=== PATIENT | male | born 1970 | race Caucasian/White ===

== ENCOUNTER 2019-12-11 00:26 | Outpatient (CLI) | payer OTHER, SELFPAY ==
--- NOTE | 2019-12-11 08:28 | DI.MRI_ITS ---
EXAM: MR UPPER JOINT RT WO CLINICAL HISTORY: RT SHOULDER PAIN,INCREASING WITH LIMITATION OF MOVEMENT [id number]. TECHNIQUE: Multiplanar multisequence MRI was performed. COMPARISON: None. FINDINGS: BONES: There is no fracture or contusion pattern. JOINTS: There are degenerative changes seen at the acromioclavicular joint with hypertrophy of the benji int noted. The glenohumeral joint is normal. TENDONS: Supraspinatus: Hyperintense signal seen in the supraspinatus tendon at its insertion site onto the gr eater tuberosity consistent with a partial tear. Infraspinatus: Unremarkable. Subscapularis: There is mild hyperintense signal seen in the subscapularis tendon suspicious for tend inosis. [place]: Unremarkable. Biceps and [place]: Unremarkable. MUSCLES: Unremarkable. GLENOID LABRUM: There is hyperintense signal associated with the posterior and posterior superior lab rum suspicious for tear or degeneration. SOFT TISSUES: Unremarkable. LIGAMENTS: Unremarkable. OTHER: Mild increased signal is seen within the subacromial subdeltoid bursa which may represent a bu rsitis. IMPRESSION: 1. Partial tear of the supraspinatus tendon. 2. Subscapularis tendinosis. 3. Findings suspicious for a labral tear. 4. Degenerative changes of the acromioclavicular joint. DATA REPOSITORY:
== END 2019-12-11 00:46 ==
PROVIDERS: PCP Family Medicine; Visit Provider Nurse Practitioner Primary Care
DX: M25.511 Pain in right shoulder (principal); M75.101 Unspecified rotator cuff tear or rupture of right shoulder, not specified as traumatic; M75.81 Other shoulder lesions, right shoulder; M19.011 Primary osteoarthritis, right shoulder
CPT/HCPCS: 73221

== ENCOUNTER 2024-09-15 19:55 | Emergency (ER) | payer BC, SELFPAY ==
[2024-09-15 19:58] VITALS: BP 166/96; PULSE 60; RESP 16; TEMP 36.8; O2SAT 96
--- NOTE | 2024-09-15 20:05 | W.ED.GENAD ---
Discharge Plan Disposition Patient Disposition: Home Condition: Stable Discharge Details Clinical Impression: Dog bite of left forearm Primary Care Provider: Joan Quintana ED Provider: Abdiel Oswald Home Meds and New Rx's Prescriptions: New amoxicillin-pot clavulanate 875-125 mg tablet 1 tab PO BID 10 Days Qty: 20 0RF Continued atorvastatin 20 mg tablet 20 mg PO DAILY Discharge Instructions Instructions: Amoxicillin and Clavulanate, Animal Bites ED Additional Instructions: You were seen in the emergency department for dog bite of bilateral forearms much worse on the left forearm. We started you on IV antibiotics as well as p.o. Augmentin this evening, berry picker the rest of your prescription tomorrow morning at [place] [facility], keep the area clean and dry with topical antibiotic ointments, watch for signs of infection like red streaking up the arm, increasing pain and swelling and redness, fever, return to the emergency department for any of the symptoms Referrals: Joan Quintana [Primary Care Provider] - Discharge Data Discharge Date/Time-TO BE ENTERED AT DEPARTURE: 09/15/24 20:54 HPI General Date/Time Provider Initiated Documentation: 09/15/24 20:04. HPI Narrative: 53 year-old male presents to ED today by POV/ambulating with his with a chief complaint of dog bites to bilateral forearms, left much moreso than right with onset just prior to arrival- it was the patients dog who is UTD on all shots. Quality described as painful, swelling to L forearm puncture wounds, no radiation to broken tooth of dog, retained foreign body, fever, active bleeding. Severity is described as moderate. Palliating factors include bleeding controlled with pressure/bandages. Provoking factors include nothing specific. Events leading up to the incident/Associated Symptoms: Patients Tdap is UTD. Patient not anticoagulated. Related Data Home Medications ?Medication ?Instructions ?Recorded ?Confirmed amoxicillin 875 mg-potassium 1 tab PO BID dog bite 10 days #20 09/15/24 clavulanate 125 mg tablet tabs atorvastatin 20 mg tablet 20 mg PO DAILY 09/15/24 09/15/24 Previous Rx's ?Medication ?Instructions ?Recorded amoxicillin 875 mg-potassium 1 tab PO BID dog bite 10 days #20 09/15/24 clavulanate 125 mg tablet tabs Allergies Allergy/AdvReac Type Severity Reaction Status Date / Time Oonxswe-DDY-LdY Reductase Allergy Mild Unknown Verified 09/15/24 20:02 Inhibitor (Xmvvfpn-Ylq-Ihc Reductase Inhibitor) multivitamin Allergy Mild Unknown Uncoded 09/15/24 20:02 General Stated Complaint: AnimalBite ROBBY: 4 Review of Systems All systems reviewed & are unremarkable except as noted in HPI and below Exam Narrative Exam Narrative: GENERAL APPEARANCE: Well-nourished, non-toxic, awake and alert, atraumatic, no acute distress. SKIN: Warm, pink, dry, intact, without rashes/lesions/ulcerations. HEAD: Normocephalic, atraumatic, normal hair distribution for gender/age. EYES: Normal conjunctiva, no exudates on lids/lashes. ENT: Nares patent, no circumoral cyanosis, no facial swelling NECK: Supple, trachea midline, painless cervical ROM. LUNGS/CHEST: Lungs CTA bilaterally, non-labored respirations, normal A/P diameter, symmetrical expansion, no chest wall deformity HEART (CV/PV): Regular rate and rhythm without murmur, no peripheral edema, no JVD. ABDOMEN: Soft, non-distended, no guarding. MSK: Normal ROM, no swelling/deformity to bilateral UEs or LEs, moving all extremities without weakness, no cyanosis, spine midline without tenderness, normal curvature. NEURO: Mental Status AAOx4 - alert to person, place, time, events No facial droop, no forehead involvement. Motor: No focal weakness - strength 5/5 in bilateral UEs and LEs, proximal and distal, symmetric. Sensory: sensation intact to light touch globally. Gait normal: patient ambulated without ataxia into ED room. PSYCH: euthymic, cooperative, pleasant, appropriate speech Course Vital Signs Vital signs: Vital Signs Temperature 36.8 C 09/15/24 19:58 Pulse 60 09/15/24 19:58 Respiratory Rate 16 09/15/24 19:58 Blood Pressure 166/96 H 09/15/24 19:58 Pulse Oximetry 96 09/15/24 19:58 Temperature 36.8 C 09/15/24 19:58 Pulse 60 09/15/24 19:58 Respiratory Rate 16 09/15/24 19:58 Respiratory Effort Normal 09/15/24 20:02 Blood Pressure 166/96 H 09/15/24 19:58 Pulse Oximetry 96 09/15/24 19:58 Pain Level 6 09/15/24 19:58 Medical Decision Making This dictation utilizes tpdhk-xb-imlu dictation software and may contain unedited grammatical errors. 53 year-old male presents to ED today by POV/ambulating with his with a chief complaint of dog bites to bilateral forearms, left much moreso than right with onset just prior to arrival- it was the patients dog who is UTD on all shots. Quality described as painful, swelling to L forearm puncture wounds, no radiation to broken tooth of dog, retained foreign body, fever, active bleeding. Severity is described as moderate. Palliating factors include bleeding controlled with pressure/bandages. Provoking factors include nothing specific. Events leading up to the incident/Associated Symptoms: Patients Tdap is UTD. Patients' medical history: noncontributory. Family and social history: noncontributory. Pertinent exam findings / vital signs include multiple puncture wounds to the left forearm, very superficial abrasions to right forearm, mild swelling and redness without lymphadenitis. Differential / pathologies of concern include cellulitis, animal bite. Diagnostic studies of: -None. Interventions of: -Aggressive washout, loaded with IV Unasyn, started on p.o. Augmentin. ED Course/Assessment/Plan: 53-year-old male presents after being bitten by his own dog, his dog is up-to-date on shots he has some puncture wounds to the left forearm, these were aggressively cleaned out with dilute Betadine and syringe irrigation, he was loaded with IV Unasyn and started on p.o. Augmentin with strict return criteria for worsening signs of infection. Patient's Tdap is up-to-date. Findings not consistent with large puncture wounds. Disposition of dog bite of left forearm. Patient verbalized understanding of the plan and return to ED criteria and engaged in shared decision making. Medical Records Medical records reviewed: Yes I reviewed the patient's medical records. Quality:SDOH Health Related Social Needs: No Data to Display PFSH All Active Problems (Updated 09/15/24 @ 20:34 by RICK Stokes) Dog bite of left forearm (Acute) Lumbosacral radiculopathy (Acute) Calf pain (Acute) Epicondylitis, lateral, left (Acute) We will see the patient back for follow-up treatment of common extensor tendon inflammation. He may need 1/3 injection as he did on the opposite side. Medical History (Updated 09/15/24 @ 20:34 by RICK Stokes) Hyperlipidemia Surgical History S/P left knee arthroscopy Family History Mother Hypertension Social History Smoking/Tobacco Use Status: Never Smoking risk assessment performed?: Yes Alcohol Intake: current Drug use: Never Household members: family current occupation: [employer]; [employer]
[2024-09-15] MEDS: Lidocaine/Epinephri/Tetracaine Topical Gel 3 ML (20:11)
[2024-09-15] MEDS: AMPICILLIN/SULBACTAM 3 GM in Normal Saline 100 ML IVPB (20:31)
[2024-09-15] MEDS: Amoxicillin 875/Clav. 125 TAB PO (20:32)
--- NOTE | 2024-09-15 21:00 | NUR.NOTE ---
Animal bite reported to [facility] Officer Boyd Wallis, animal bite form faxed to his office at [phone].Nursing Note:
--- OUTSIDE RECORDS SUMMARY | 2024-09-15 21:03 | XMS_ITS | Encounter Summary ---
Author Name [facility] [place] [facility] [place] Address [address] [place] [address] Care Team Providers Care Subassembly Assembler Name Role Phone ANG ARMANDO Primary Care Provider Unavail le Insurance Providers: All historical and current Section Date Range: From patient's date of to the date document was created. This section includes the names of all active insurance providers for the patient. Insurance Provider Type of Coverage Plan Name Start of Policy Coverage End of Policy Coverage Group Number Member ID Insurance Provider's Telephone Number Policy Ellsworth's Name Patient's Relationship to Policy Ellsworth ANTHEM [employer] [place] RET UNDER Nov 03, 2020 [id number] MELLOLISA PATIENT ANTHEM [employer] [place] ACTIV E SELE[place] TCAR Oct 03, 2018 [id number] SARKARLISA PATIENT [employer] [place] S[place] RET UNDER 65 [place] Nov 03, 2020 [id number] MELLOLISA CASH PATIENT [employer] [place] S[place] ACTIV E [place] TCAR Oct 03, 2018 [id number] LISA SARKAR PATIENT BCBS [facility] POINT OF SERVICE SOV RET UNDER 65 DESTIN[place] Oct 03, 2018 [id number] LISA SARKAR PATIENT [employer] ([id number]) PRESCRIPT ION [facility] NT Oct 03, 2018 [id number] LISA SARKAR PATIENT Selected Encounter This section includes the information on record at [place] for the Encounter. Date/Time Encounter Type Encounter Description Reason Provider Source Nov 04, 2023 11:00 AM MANUAL THERAPY 1/> [facility] ICD-10-CM M25.511 Pain in right shoulder MICUCCI,RINKU IHE Encounter Template Text not used by VA Assessments - Encounter Diagnoses This section includes the primary and secondary diagnoses documented for the Encounter. Date/Time Primary/Secondary Diagnosis Diagnosis Name Provider Source Nov 15, 2023 07:32 AM PRIMARY Pain in right shoulder MICUCCI,RINKU [facility] Plan of Treatment: Future Appointments (+ 6 months) and Future Tests (+/- 45 days) The Plan of Treatment section includes future care activities for the patient from all [place] treatmentfacilities. This section includes future appointments and future orders which are active, pending or scheduled. Future Appointments This section includes appointments that were scheduled to occur 6 months from the date of the Encounter, up to a maximum of 20 appointments. The data comes from all [place] treatment facilities. Appointment Date/Time Appointment Type Appointme nt Facility Name Nov 17, 2023 02:00 PM AM[facility] [place] [facility] Nov 22, 2023 04:00 PM [place] [facility] February 01, 2024 10:30 AM [place] [facility] Mar 05, 2024 01:30 PM AMBULATORY - MEDICINE [facility] Mar 09, 2024 05:30 PM AM[place]ORY - NONE [place] [facility] Apr 11, 2024 08:30 AM [place] [facility] Apr 18, 2024 08:30 AM [facility] [place] [facility] Apr 26, 2024 09:30 AM AMBULATORY - NONE [facility] Apr 26, 2024 10:00 AM AMBULATORY - NONE [facility] May 03, 2024 08:30 AM AMBULATORY - REHAB [facility] Social History: Smoking Status (Most current) and Tobacco Use (All prior to encounter date) This section includes the most current, and the historical, smoking and tobacco- related health factors from the [place] facility where the Encounter took place. Current Smoking Status This section includes the most current smoking, or tobacco-related health factor, from the [place] facility where the Encounter took place. Date/Time Current Smoking Status Comment Facil ity Apr 21, 2023 11:00 AM VA-TOBACCO NEVER USED [facility] Tobacco Use History This section includes a history of the smoking, or tobacco-related health factors, that were collected on or before the date of the Encounter. The data comes from the [place] facility where the Encounter took place. Date/Time Smoking Status/Tobacco Use Comment F acility Aug 05, 2021 09:04 AM VA-TOBACCO FORMER USER [facility] Aug 05, 2021 09:04 AM VA-TOBACCO QUIT 5 TO < 15 YRS [facility] Jul 03, 2020 08:45 AM VA-TOBACCO FORMER USER [facility] Jul 03, 2020 08:45 AM VA-TOBACCO QUIT 5 TO < 15 YRS [facility] Dec 20, 2005 03:58 PM LIFETIME NON-TOBACCO USER [facility] Encounter Notes: All associated encounter notes This section contains the clinical notes associated to the Encounter. Date/Time Encounter Note(s) Provider Source Nov 04, 2023 10:57 AM PHYSICAL THERAPY N OTE: LOCAL TITLE: Physical Therapy Note STANDARD TITLE: PHYSICAL THERAPY NOTE DATE OF NOTE: NOV 04, 2023@10:57 ENTRY DATE: NOV 04, 2023@10:57:13 AUTHOR: RINKU LANE EXP COSIGNER: URGENCY: STATUS: COMPLETED Diagnosis: LBP, bilat hip pain worsening. Referred by: Eli BUNCH Referred for: Evaluate and treat Date of Onset: Chronic Start of Physical Therapy plan of care: 07/10/21 Visit # 26 S. R shoulder is aggravated at the moment and occasional sharp pain R low back. O. Manual Therapy MFR through range in IR/ ER UE pull bilaterally; STM at tight areas and noting these to do the next tx: IASTM Graston technique R shoulder Sweep, fan, strum, GT 3, 4 (c/o R shoulder sore post tx.) Also seated: R SI & lower lumbar IASTM Graston technique GT 3, 4, 5. Sweep, [place], Framing SI. (c/o decreased SI area pain post tx). Shock therapy RPW Ro-40 head to (on stretch) tight areas in biceps, pec, delt x 2000 pulses 12 Hz, 1-1.5 bars. Assessment/Prognosis/Rehabilit ation Potential: 51 y/o know to this clinic returns with progressing back pain (T-L) and L sciatica. Per PCP for trial [employer], but we also schedule for plan as above this winter. Mod- good rehab potential. ? Nerve vs ST pain: possibly Intercostobrachial, lateral cutaneous branches of Intercostal N, lateral or medial pectoral nerve. Plan: RC strengthening program per Ortho. Short Term Goals: 4-6 weeks 1. [place] to be I with shoulder strengthening program. Area Loss Prevention Manager Goals: 8-16 weeks 1. [place] to have strength WFL. Total Time: 55 Manual Therapy 47103 55 Thera Activity 59375 [place] [address] Hot/Cold Pack 08681 Estim 84680 Ultrasound 96173 Ortho fit Iontophoresis Subs eval SHock therapy 15 The above results and recommendations were explained to the , who verbally acknowledged an understanding thereof. The plan of care, the expected benefits, and known risks associated with the recommended treatment, alternative treatments, or no treatment with the associated risks has been discussed with the (or surrogate). The (or surrogate) had an opportunity to ask questions which were answered to the 's (or surrogate's) satisfaction. The patient (or surrogate) agreed to proceed with the recommended plan of care. Please do not hesitate to call contact me with questions/concerns- Thank marcia urias/ RINKU LANE Physical Therapist, licenced in [place] Signed: 11/04/2023 12:55 [facility]INKU [facility]
--- OUTSIDE RECORDS SUMMARY | 2024-09-15 21:03 | XMS_ITS | Encounter Summary ---
Author Name [facility] [place] [facility] [place] [facility] [place] Address [address] [place] [address] Care Team Providers Care Publication Manager Name Role Phone ANG ARMANDO Primary Care [...] Relationship to Policy Ellsworth ANTHEM [employer] [place] S[place] RET UNDER Nov 03, 2020 [id number] MELLOLISA SHAILESH PATIENT ANTHEM [employer] [place] SOV ACTIV E SELEC TCAR Oct 03, 2018 [id number] SARKARLISA SHAILESH PATIENT BCBS OF [place] OF [place] SOV RET UNDER 65 DESTIN[place] Nov 03, 2020 [id number] 00 MELLOLISA SHAILESH PATIENT [employer] [place] OF [place] SOV ACTIV E SELEC TCAR Oct 03, 2018 [id number] LISA SARKAR PATIENT [employer] [place]INT OF SERV[place] SOV RET UNDER 65 [place] Oct 03, 2018 [id number] LISA SARKAR PATIENT [employer] ([id number]) PRESCRIPT ION [facility] NT Oct 03, 2018 [id number] [phone] LISA SARKAR PATIENT Selected Encounter This section includes the information on record at [place] for the Encounter. Date/Time Encounter Type Encounter Description Reason Provider Source Nov 17, 2023 02:00 PM UNLISTED THERAPEUTIC [facility]X PHYSICAL THERAPY ICD-10-CM M25.512 Pain in left shoulder MICUCCI,RINKU IHE Encounter Template Text not used by VA Assessments - Encounter Diagnoses This section includes the primary and secondary diagnoses documented for the Encounter. Date/Time Primary/Secondary Diagnosis Diagnosis Name Provider Source Nov 28, 2023 12:36 PM PRIMARY Pain in left shoulder MICUCCI,[facility] Nov 28, 2023 12:36 PM SECONDARY Pain in right shoulder [facility]CCI,[facility] Plan of Treatment: Future Appointments (+ 6 months) and Future Tests (+/- 45 days) The Plan of Treatment section includes future care activities for the patient from all [place] treatmentfacilities. This section includes future appointments and future orders which are active, pending or scheduled. Future Appointments This section includes appointments that were scheduled to occur 6 months from the date of the Encounter, up to a maximum of 20 appointments. The data comes from all [place] treatment facilities. Appointment Date/Time Appointment Type Appointme nt Facility Name Nov 22, 2023 04:00 PM AM[place] [place] [facility] February 01, 2024 10:30 AM [facility] [place] [facility] Mar 05, 2024 01:30 PM AMBULATORY - MEDICINE [facility] Mar 09, 2024 05:30 PM [facility] - NONE [place] [facility] Apr 11, 2024 08:30 AM [place] [facility] Apr 18, 2024 08:30 AM [facility] [place] [facility] Apr 26, 2024 09:30 AM [facility]ORY - NONE [place] [facility] Apr 26, 2024 10:00 AM AMBULATORY - NONE [facility] May 03, 2024 08:30 AM AMBULATORY - REHAB MEDICIN E [facility] [facility] May 15, 2024 10:10 AM AMBULATORY - NONE [facility] Social History: Smoking Status (Most current) and Tobacco Use (All prior to encounter date) This section includes the most current, and the historical, smoking and tobacco- related health factors from the [place] facility where the Encounter took place. Current Smoking Status This section includes the most current smoking, or tobacco-related health factor, from the [place] facility where the Encounter took place. Date/Time Current Smoking Status Comment Facil ity Apr 21, 2023 11:00 AM VA-TOBACCO NEVER USED [facility] Tobacco Use History This section includes a history of the smoking, or tobacco-related health factors, that were collected on or before the date of the Encounter. The data comes from the [place] facility where the Encounter took place. Date/Time Smoking Status/Tobacco Use Comment F acility Aug 05, 2021 09:04 AM VA-TOBACCO FORMER USER [facility] Aug 05, 2021 09:04 AM VA-TOBACCO QUIT 5 TO < [address] [facility] Jul 03, 2020 08:45 AM VA-TOBACCO FORMER USER [facility] Jul 03, 2020 08:45 AM VA-TOBACCO QUIT 5 TO < [address] [facility] Dec 20, 2005 03:58 PM LIFETIME NON-TOBACCO USER [facility] Encounter Notes: All associated encounter notes This section contains the clinical notes associated to the Encounter. Date/Time Encounter Note(s) Provider Source Nov 17, 2023 01:58 PM PHYSICAL THERAPY N OTE: LOCAL TITLE: Physical Therapy Note STANDARD TITLE: PHYSICAL THERAPY NOTE DATE OF NOTE: NOV 17, 2023@13:58 ENTRY DATE: NOV 17, 2023@13:58:07 AUTHOR: RINKU LANE COSIGNER: URGENCY: STATUS: COMPLETED Diagnosis: LBP, bilat hip pain worsening. Referred by: Eil BUNCH Referred for: Evaluate and treat Date of Onset: Chronic Start of Physical Therapy plan of care: 07/10/21 Visit # 27 S. The work you did on the shoulder really helped- they are both about the same now: can you do it for both shoulders? I've gotten back into strengthening with the bands in particular. O. NM re- ed. NUSTEP L5 Stretches in TRUE stretch pre and post MT. Encouraged to work on H- abd in particular during the day (@90deg) while working/ warm. Manual Therapy IASTM Graston technique R & L shoulders Sweep, fan, strum, GT 3, 4 Shock therapy RPW Ro-40 head to (on stretch) tight areas in biceps, pec, delt x 2000 pulses 12 Hz, 1.5 bars bilateral shoulders. Assessment/Prognosis/Rehabilit ation Potential: 51 y/o know to [...] Ortho. Short Term Goals: 4-6 weeks 1. [place] to be I with shoulder strengthening program. [employer] Milling Processor Goals: 8-16 weeks 1. to have strength WFL. Total Time: 60 Manual Therapy 84202 35 Thera Activity 13557 [place] [address] 15 Hot/Cold Pack 29937 Estim 17189 Ultrasound 57846 Ortho fit Iontophoresis Subs eval SHock therapy 10 The above results and recommendations were explained [...] urias/ RINKU LANE Physical Therapist, licenced in [place] Signed: 11/17/2023 17:[address] [facility]
--- OUTSIDE RECORDS SUMMARY | 2024-09-15 21:03 | XMS_ITS | Encounter Summary ---
Author Name [facility] [place] [facility] [place] Address [address] [place] [address] Care Team Providers Care Desktop Analyst Name Role Phone ANG ARMANDO Primary Care Provider Unavailab le Insurance Providers: All historical and current [...] Relationship to Policy [place] ANTHEM [employer] POINT OF SERVICE SOV RET UNDER Nov 03, 2020 [id number] MELLOLISA SHAILESH PATIENT ANTHEM [place]INT [place] SERVICE SOV ACTIV E SELEC TCAR Oct 03, 2018 [id number] [phone] LISA SARKAR PATIENT [place] POINT OF SERVICE SOV RET UNDER 65 DESTINY Nov 03, 2020 [id number] LISA SARKAR PATIENT [place] POINT OF SERVICE SOV ACTIV E SELEC TCAR Oct 03, 2018 [id number] LISA SARKAR PATIENT [place] POINT OF [place]ICE SOV RET UNDER 65 DESTINY Oct 03, 2018 [id number] LISA SARKAR PATIENT [employer] ([id number]) PRESCRIPT ION [facility] NT Oct 03, 2018 [id number] LISA SARKAR PATIENT Selected Encounter This section includes the information on record at [place] for the Encounter. Date/Time Encounter Type Encounter Description Reason Pro vider Source Nov 16, 2023 02:39 PM Outpatient Encounter ADMIN PAT ACTIVTIES (MASNONCT) IHE Encounter Template Text not used by VA Plan of Treatment: Future Appointments (+ 6 months) and Future Tests (+/- 45 days) The Plan of Treatment section includes future care activities for the patient from all VA treatmentfacilities. This section includes future appointments and future orders which are active, pending or scheduled. Future Appointments This section includes appointments that were scheduled to occur 6 months from the date of the Encounter, up to a maximum of 20 appointments. The data comes from all [place] treatment facilities. Appointment Date/Time Appointment Type Appointme nt Facility Name Nov 17, 2023 02:00 PM AMBULATORY - [place] [facility] Nov 22, 2023 04:00 PM AMBULATORY - [place]IC[place] [facility] February 01, 2024 10:30 AM AMBULATORY - [place] [facility] Mar 05, 2024 01:30 PM AMBULATORY - MEDICINE [facility] Mar 09, 2024 05:30 PM AM[place]ULATORY - NONE [place] [facility] Apr 11, 2024 08:30 AM AMBULATORY [place] [facility] Apr 18, 2024 08:30 AM AMBULATORY - [place] [facility] Apr 26, 2024 09:30 AM AMBULATORY - NONE [facility] Apr 26, 2024 10:00 AM AMBULATORY - NONE [facility] May 03, 2024 08:30 AM AMBULATORY [place] [facility] May 15, 2024 10:10 AM AM[place]ULATORY - NONE [place] [facility] Encounter Notes: All associated encounter notes This section contains the clinical notes associated to the Encounter. Date/Time Encounter Note(s) Provider Source Nov 18, 2023 04:25 PM ADDENDUM: LOCAL TITLE: Addendum STANDARD TITLE: ADDENDUM DATE OF NOTE: NOV 18, 2023@16:25:07 ENTRY DATE: NOV 18, 2023@16:25:09 AUTHOR: FRANK HARDEN EXP COSIGNER: URGENCY: STATUS: COMPLETED Pt would like to be scheduled at [facility] for his eye exam. [facility] wait time was about the same so he would rather just [facility] the [facility]. /fredy/ FRANK HARDEN Signed: 11/18/2023 16:25 Receipt Acknowledged By: 11/23/2023 11:40 /fredy/ STEPHEN MILLER Registered Nurse 11/22/2023 09:57 /es/ GEN FARLEY MSA --- Original Document --- 11/16/23 Has Admin Note: Reason for call Clinic Name:Eye - [place] would like to go to for his eye-care due to the long wait times. [place] like to go to [facility] located in [facility]. [place]'s best form of contact is [phone] and is OK with a detailed voice message on this number if unable to reach him /fredy/ KEELY ÁLVAREZ MSA Signed: 11/16/2023 14:40 Receipt Acknowledged By: 11/17/2023 16:02 /fredy/ STEPHEN MILLER Registered Nurse 11/16/2023 15:05 /fredy/ KAVITHA BRICNEO OD CHIEF, OPTOMETRY 11/17/2023 ADDENDUM STATUS: COMPLETED [facility] would like to go to for his eye-care due to the long wait times. [place] would like to go to [facility] located in [facility]. please review wait time for this cc provider/offer [facility] or possible other locations. /dafne MILLER Registered Nurse Signed: 11/17/2023 16:03 Receipt Acknowledged By: 11/18/2023 14:04 /dafne HARDEN 11/18/2023 ADDENDUM STATUS: COMPLETED [facility] in [facility] is booking 10 months out. LM and mailed letter to to discuss care options. /dafne HARDEN Signed: 11/18/2023 14:05 11/22/2023 ADDENDUM STATUS: COMPLETED Left a vm for patient to call back and schedule an exam. Sent contact letter. /dafne FARLEY MSA Signed: 11/22/2023 09:58 FRANK HARDEN [facility] Nov 17, 2023 04:03 PM ADDENDUM: LOCAL TITLE: Addendum STANDARD TITLE: ADDENDUM DATE OF NOTE: NOV 17, 2023@16:03 ENTRY DATE: NOV 17, 2023@16:03:01 AUTHOR: STEPHEN MILLER EXP COSIGNER: URGENCY: STATUS: COMPLETED [facility]CI AMS[facility] [place] would like to go to for his eye-care due to the long wait times. [place] would like to go to [facility] located in [facility]. please review wait time for this cc provider/offer [facility] or possible other locations. /dafne MILLER Registered Nurse Signed: 11/17/2023 16:03 Receipt Acknowledged By: 11/18/2023 14:04 /dafne HARDEN --- Original Document --- 11/16/23 Has Admin Note: Reason for call Clinic Name:Eye - CC would like to go to for his eye-care due to the long wait times. [place] would like to go to [facility] located in [facility]. 's best form of contact is [phone] and is OK with a detailed voice message on this number if unable to reach him /fredy/ KEELY ÁLVAREZ MSA Signed: 11/16/2023 14:40 Receipt Acknowledged By: 11/17/2023 16:02 /fredy/ STEPHEN MILLER Registered Nurse 11/16/2023 15:05 /fredy/ KAVITHA BRICENO, OD CHIEF, OPTOMETRY 11/18/2023 ADDENDUM STATUS: UNSIGNED You may not VIEW this UNSIGNED Addendum. STEPHEN MILLER [facility] Nov 16, 2023 02:39 PM ADMINISTRATIVE NOT E: LOCAL TITLE: Has Admin Note STANDARD TITLE: ADMINISTRATIVE NOTE DATE OF NOTE: NOV 16, 2023@14:39 ENTRY DATE: NOV 16, 2023@14:39:36 AUTHOR: KEELY ÁLVAREZ EXP COSIGNER: URGENCY: STATUS: COMPLETED Has Admin Note Has ADDENDA Reason for call Clinic Name:Eye - [facility] [place] would like to go to for his eye-care due to the long wait times. would like to go to [facility] located in [facility]. [place]'s best form of contact is [phone] and is OK with a detailed voice message on this number if unable to reach him /fredy/ KEELY ÁLVAREZ MSA Signed: 11/16/2023 14:40 Receipt Acknowledged By: 11/17/2023 16:02 /dafne MILLER Registered Nurse 11/16/2023 15:05 /fredy/ KAVITHA BRICENO, OD CHIEF, OPTOMETRY 11/17/2023 ADDENDUM STATUS: COMPLETED [facility] [place] would like to go to for his eye-care due to the long wait times. would like to go to [facility] located in [facility]. please review wait time for this cc provider/offer [facility] or possible other locations. /dafne MILLER Registered Nurse Signed: 11/17/2023 16:03 Receipt Acknowledged By: 11/18/2023 14:04 /dafne PRADOTEN 11/18/2023 ADDENDUM STATUS: COMPLETED [facility] in [facility] is booking 10 months out. LM and mailed letter to to discuss care options. /dafne HARDEN Signed: 11/18/2023 14:05 11/18/2023 ADDENDUM STATUS: COMPLETED Pt would like to be scheduled at [facility] for his eye exam. [place] wait time was about the same so he would [facility]. /dafne HARDEN Signed: 11/18/2023 16:25 Receipt Acknowledged By: * AWAITING SIGNATURE * STEPHEN MILLER 11/22/2023 09:57 /dafne FARLEY MSA 11/22/2023 ADDENDUM STATUS: COMPLETED Left a vm for patient to call back and schedule an exam. Sent contact letter. /dafne FARLEY MSA Signed: 11/22/2023 09:58 KEELY ÁLVAREZ [facility]
--- OUTSIDE RECORDS SUMMARY | 2024-09-15 21:03 | XMS_ITS | Encounter Summary ---
Author Name [facility] [place] Address [address] [place] [address] Care Team Providers Care Network Operations Lead Name Role Phone ANG ARMANDO Primary Care [...] Relationship to Policy [place] ANTHEM [employer] [place] POINT OF SERVICE SOV RET UNDER Nov 03, 2020 [id number] MELLOLISA SHAILESH PATIENT ANTHEM [employer]INT OF SERVICE SOV ACTIV E SELEC TCAR Oct 03, 2018 [id number] [phone] SARKARLISA SHAILESH PATIENT [employer] POINT OF SERVICE SOV RET UNDER 65 DESTINY Nov 03, 2020 [id number] MELLOLISA SHAILESH PATIENT [employer]INT OF SERVICE SOV ACTIV E SELEC TCAR Oct 03, 2018 [id number] LISA SARKAR PATIENT [place]INT OF SERV[place] SOV RET UNDER 65 DESTINY Oct 03, 2018 [id number] LISA SARKAR PATIENT [employer] ([id number]) PRESCRIPT ION [facility] NT Oct 03, 2018 [id number] [phone] LISA SARKAR PATIENT Selected Encounter This section includes the information on record at [place] for the Encounter. Date/Time Encounter Type Encounter Description Reason Provider Source Nov 22, 2023 04:00 PM NEUROMUSCULAR REEDUCATION PHYSICAL THERAPY ICD-10-CM M54.2 Cervicalgia MICUCCI,RINKU IHE Encounter Template Text not used by VA Assessments - Encounter Diagnoses This section includes the primary and secondary diagnoses documented for the Encounter. Date/Time Primary/Secondary Diagnosis Diagnosis Name Provider Source Nov 22, 2023 05:28 PM PRIMARY Cervicalgia [facility] Nov 22, 2023 05:28 PM SECONDARY Pain in left shoulder [facility]UCCI,[facility] Nov 22, 2023 05:28 PM SECONDARY Pain in right shoulder [facility]UCCI,[facility] Plan of Treatment: Future Appointments (+ 6 months) and Future Tests (+/- 45 days) The Plan of Treatment section includes future care activities for the patient from all [place] treatmentfacilities. This section includes future appointments and future orders which are active, pending or scheduled. Future Appointments This section includes appointments that were scheduled to occur 6 months from the date of the Encounter, up to a maximum of 20 appointments. The data comes from all [place] treatment facilities. Appointment Date/Time Appointment Type Appointme nt Facility Name February 01, 2024 10:30 AM [place] [facility] Mar 05, 2024 01:30 PM AMBULATORY - MEDICINE [facility] Mar 09, 2024 05:30 PM AM[place]ULATORY - NONE [place] [facility] Apr 11, 2024 08:30 AM [place] [facility] Apr 18, 2024 08:30 AM [place] [facility] Apr 26, 2024 09:30 AM AMBULATORY - NONE [facility] Apr 26, 2024 10:00 AM AMBULATORY - NONE [facility] May 03, 2024 08:30 AM AMBULATORY - REHAB MEDICIN E [facility] May 15, 2024 10:10 AM AMBULATORY - NONE [facility] LAM[facility] Social History: Smoking Status (Most current) and Tobacco Use (All prior to encounter date) This section includes the most current, and the historical, smoking and tobacco- related health factors from the [place] facility where the Encounter took place. Current Smoking Status This section includes the most current smoking, or tobacco-related health factor, from the [place] facility where the Encounter took place. Date/Time Current Smoking Status Comment Facil ity Apr 21, 2023 11:00 AM VA-TOBACCO NEVER USED [facility] Tobacco Use History This section includes a history of the smoking, or tobacco-related health factors, that were collected on or before the date of the Encounter. The data comes from the [place] facility where the Encounter took place. Date/Time Smoking Status/Tobacco Use Comment F acility Aug 05, 2021 09:04 AM VA-TOBACCO FORMER USER [facility] Aug 05, 2021 09:04 AM VA-TOBACCO QUIT 5 TO < 15 YRS [facility] Jul 03, 2020 08:45 AM VA-TOBACCO FORMER USER [facility] Jul 03, 2020 08:45 AM VA-TOBACCO QUIT 5 TO < 15 YRS [facility] Dec 20, 2005 03:58 PM LIFETIME NON-TOBACCO USER [facility] Encounter Notes: All associated encounter notes This section contains the clinical notes associated to the Encounter. Date/Time Encounter Note(s) Provider Source Nov 22, 2023 03:54 PM PHYSICAL THERAPY N OTE: LOCAL TITLE: Physical Therapy Note STANDARD TITLE: PHYSICAL THERAPY NOTE DATE OF NOTE: NOV 22, 2023@15:54 ENTRY DATE: NOV 22, 2023@15:54:47 AUTHOR: RINKU LANE COSIGNER: URGENCY: STATUS: COMPLETED Diagnosis: LBP, bilat hip pain worsening. Referred by: Eli BUNCH Referred for: Evaluate and treat Date of Onset: Chronic Start of Physical Therapy plan of care: 07/10/21 Visit # 28 S. Would be great to keep on working on my shoulders. The do wake me up at night, then I have a hard time getting up as I sleep only on my sides, but I think there are improvements. Definately feels better after PT. Need new heel cups and L wrist support- the R one really helps my elbow when I'm working. Worked overhead today- pretty sore. Vacation next week. Looking forwards to lying in the sun/ relaxing/ sleeping in! O. NM re- ed. NUSTEP L5 Stretches in TRUE stretch pre MT. Manual Therapy IASTM Graston technique R & L shoulders in 90 abd neutral, IR, ER and full flexion. Sweep, fan, strum, GT 3, 4 Noted improved texture R pec (upper) and R IR today. Seated C spine/ UT/ scalene in forwards lean and upright, rotated positions with GT 3,4 : sweep, fan, strum, jstroke. Noted congestion and loss of mobility R > L mid C spine. Also corrugated feel lateral UT bilaterally. (Shock therapy RPW Ro-40 head to (on stretch) tight areas in biceps, pec, delt x 2000 pulses 12 Hz, 1.5 bars bilateral shoulders.) Assessment/Prognosis/Rehabilit ation Potential: 51 y/o know to [...] Ortho. Short Term Goals: 4-6 weeks 1. to be I with shoulder strengthening program. [facility] Goals: 8-16 weeks 1. [place] to have strength WFL. Total Time: 7 Manual Therapy 15241 60 Thera Activity 29447 [place] [address] 10 Hot/Cold Pack 79255 Estim 53326 Ultrasound 27387 Ortho fit Iontophoresis Subs eval SHock therapy The above results and recommendations were explained [...] urias/ RINKU LANE Physical Therapist, licenced in [place] Signed: 11/22/2023 17:[address] [facility]
--- OUTSIDE RECORDS SUMMARY | 2024-09-15 21:03 | XMS_ITS | Encounter Summary ---
Author Name [facility] [place] Address [address] [place] [address] Care Team Providers Care 911 Dispatcher Name Role Phone ANG ARMANDO Primary Care [...] Relationship to Policy [place] ANTHEM [employer] [place] POINT OF SERVICE SOV RET UNDER Nov 03, 2020 [id number] MELLOLISA SHAILESH PATIENT ANTHEM [employer] [place] POINT OF SERVICE SOV ACTIV E SELEC TCAR Oct 03, 2018 [id number] [phone] LISA SARKAR PATIENT [employer] [place] POINT OF SERVICE SOV RET UNDER 65 DESTINY Nov 03, 2020 [id number] LISA SARKAR PATIENT [employer] POINT OF SERVICE SOV ACTIV E SELEC TCAR Oct 03, 2018 [id number] [phone] [id number] LISA SARKAR PATIENT [employer] POINT OF SERVICE SOV RET UNDER 65 DESTINY Oct 03, 2018 [id number] LISA SARKAR PATIENT [employer] ([id number]) PRESCRIPT ION [facility] NT Oct 03, 2018 Q54A [id number] LISA SARKAR PATIENT Selected Encounter This section includes the information on record at [place] for the Encounter. Date/Time Encounter Type Encounter Description Reason Provider Source Nov 04, 2023 12:04 PM OFF/OP EST JANUARY X REQ PHY/QHP PRIMARY CARE/MEDICINE ICD-10-CM Z23 Encounter for immunization GEOFFREY CLEANING ANN E Encounter Template Text not used by [place] Assessments - Encounter Diagnoses This section includes the primary and secondary diagnoses documented for the Encounter. Date/Time Primary/Secondary Diagnosis Diagnosis Name Provider Source Nov 15, 2023 07:34 AM PRIMARY Encounter for immunization GEOFFREY CLEANINGA [facility] Plan of Treatment: Future Appointments (+ [...] AMBULATORY [place] [facility] Nov 22, 2023 04:00 PM AM[place] [facility] February 01, 2024 10:30 AM [place] [facility] Mar 05, 2024 01:30 PM AMBULATORY - MEDICINE [facility] Mar 09, 2024 05:30 PM AM[place]ULATORY - NONE [place] [facility] Apr 11, 2024 08:30 AM [place] [facility] Apr 18, 2024 08:30 AM [place] [facility] Apr 26, 2024 09:30 AM AMBULATORY - NONE [facility] Apr 26, 2024 10:00 AM AMBULATORY - NONE [facility] May 03, 2024 08:30 AM AMBULATORY - REHAB [facility] Immunizations: All administered on the encounter date This section contains immunizations associated to the Encounter. Immunization Series Date Issued Reaction Comments INFLUENZA, INJECTABLE, QUADR IVALENT, PRESERVATIVE FREE Nov 04, 2023 Social History: Smoking Status (Most current) and [...] 21, 2023 11:00 AM VA-TOBACCO NEVER USED [facility] Tobacco Use History This section includes a history of the smoking, or tobacco-related health factors, that were collected on or before the date of the Encounter. The data comes from the [place] facility where the Encounter took place. Date/Time Smoking Status/Tobacco Use Comment F acility Aug 05, 2021 09:04 AM VA-TOBACCO FORMER USER [facility] Aug 05, 2021 09:04 AM VA-TOBACCO QUIT 5 TO < 15 YRS [facility] Jul 03, 2020 08:45 AM VA-TOBACCO FORMER USER [facility] Jul 03, 2020 08:45 AM VA-TOBACCO QUIT 5 TO < 15 YRS [facility] Dec 20, 2005 03:58 PM LIFETIME NON-TOBACCO USER [facility] Encounter Notes: All associated encounter notes This section contains the clinical notes associated to the Encounter. Date/Time Encounter Note(s) Provider Source Nov 04, 2023 12:04 PM NURSING IMMUNIZATI ON NOTE: LOCAL TITLE: IMMUNIZATION AND VACCINATION NOTE STANDARD TITLE: NURSING IMMUNIZATION NOTE DATE OF NOTE: NOV 04, 2023@12:04 ENTRY DATE: NOV 04, 2023@12:04:32 AUTHOR: MACKENZIE CLEANING COSIGNER: URGENCY: STATUS: COMPLETED *Immunizations No INFLUENZA Immunizations on file within 1Y. ADMINISTERED Immunization Series Date Facility Reaction Info COVID-19 (MODERNA), MRNA, LNP-S,* 1 12/26/2020 [facility] <[facility]> COVID-19 (MODERNA), MRNA, LNP-S,* 2 01/23/2021 [facility] <C> COVID-19 (MODERNA), MRNA, LNP-S,* 3 09/17/2021 [facility] <C> CONTRAINDICATED No data available REFUSED ======= No data available <C> See the Detailed Immunizations Health Summary Component[DIM] for Comments * Value is truncated; see the Detailed Immunizations Health Summary Component[DIM] for complete text No FLU,HI DOS Immunizations on file within 1Y. Recorded Pneumococcal Vaccinations Information: Reminder Term: VA-PNEUMOC PPSV23 IMMUNIZATION Immunization: PNEUMOCOCCAL POLYSACCHARIDE PPV23 09/19/2019@13:00 Reminder Term: VA-PNEUMOC PCV IMMUNIZATION (ALL CONJUGATE) Immunization: PNEUMOCOCCAL CONJUGATE PCV20, POLYSACCHARIDE [id number] CONJUGATE, ADJUVANT, PF 07/01/2022@15:44:26 No TD-ADULT Immunizations on file within 10Y. TDAP given on 04/21/23 Date of last Zoster Vaccine unknown Influenza Vaccine The patient was given the influenza VIS which lists the benefits and side effects of the vaccine and which reviews the risks of not receiving the flu vaccine. The VIS was reviewed with the patient and they were given an opportunity to ask questions. The patient was provided education on how to decrease the risk of influenza infection including social distancing and use of good hand hygiene. The patient denied any prior severe reaction to the flu vaccine or its components. The patient gave verbal consent to receive the vaccine. Influenza, Quadrivalent preservative free (Fluzone - syringe) Administered: INFLUENZA, INJECTABLE, QUADRIVALENT, PRESERVATIVE FREE Date Administered: Nov 04, 2023 12:04 Series: Complete Cinema Or Theatre Manager: SANOFI PASTEUR Lot: [id number] Exp Date: Apr 01, 2024 [facility]: [phone] Admin Route/Site: INTRAMUSCULAR/LEFT DELTOID Dosage: 0.5mL Vaccine Information Statement(s): INFLUENZA(FLU) VACC(INACTIVATED OR RECOMBINANT)VIS May 08, 2021 ([place]UNG[place]) Order By: Policy Administered By: Mackenzie Cleaning /fredy/ MACKENZIE CLEANING Registered Nurse Signed: 11/04/2023 12:05 MACKENZIE CLEANING [facility]
--- OUTSIDE RECORDS SUMMARY | 2024-09-15 21:03 | XMS_ITS | Encounter Summary ---
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 Name Role Phone ANG ARMANDO Primary Care [...] Relationship to Policy [place] [employer] [place] POINT OF SERVICE SOV RET UNDER Nov 03, 2020 [id number] MELLOLISA PATIENT ANTHEM [employer] [place]INT OF SERVICE SOV ACTIV E SELEC TCAR Oct 03, 2018 [id number] [phone] LISA VO PATIENT [employer] [place] POINT OF SERVICE SOV RET UNDER 65 DESTINY Nov 03, 2020 [id number] LISA VO PATIENT [employer]INT [place] SERV[place] SOV ACTIV E SELEC TCAR Oct 03, 2018 [id number] LISA VO PATIENT BS [facility] POINT OF SERVICE SOV RET UNDER 65 DESTINY Oct 03, 2018 [id number] [id number] LISA VO PATIENT [employer] ([id number]) PRESCRIPT ION [facility] NT Oct 03, 2018 [id number] LISA VO PATIENT Selected Encounter This section includes the information on record at [place] for the Encounter. Date/Time Encounter Type Encounter Description Reason Provider Source February 01, 2024 10:30 AM OFFICE O/P [place] 60 MIN ORTHO/JOINT SURG ICD-10-CM M25.511 Pain in right shoulder KERVIN MIRELES I[facility] Encounter Template Text not used by [facility] Assessments - Encounter Diagnoses This section includes the primary and secondary diagnoses documented for the Encounter. Date/Time Primary/Secondary Diagnosis Diagnosis Name Provider Source February 10, 2024 03:25 PM PRIMARY Pain in right shoulder KERVIN MIRELES L [facility] Plan of Treatment: Future Appointments (+ 6 months) and Future Tests (+/- 45 days) The Plan of Treatment section includes future care activities for the patient from all [place] treatmentfacilities. This section includes future appointments and future orders which are active, pending or scheduled. Future Appointments This section includes appointments that were scheduled to occur 6 months from the date of the Encounter, up to a maximum of 20 appointments. The data comes from all [place] treatment facilities. Appointment Date/Time Appointment Type Appointme nt Facility Name Mar 05, 2024 01:30 PM AMBULATORY - MEDICINE [facility] Mar 09, 2024 05:30 PM AMBULATORY - NONE [place] [facility] Apr 11, 2024 08:30 AM [place] [facility] Apr 18, 2024 08:30 AM [place] [facility] Apr 26, 2024 09:30 AM AMBULATORY - NONE [facility] Apr 26, 2024 10:00 AM AMBULATORY - NONE [facility] May 03, 2024 08:30 AM AMBULATORY - [place] [facility] May 15, 2024 10:10 AM AMBULATORY - NONE [place] [facility] Jun 05, 2024 02:00 PM AMBULATORY - REHAB MEDICIN [place] [facility] Jun 06, 2024 02:59 PM AMBULATORY - NONE [place] [facility] Jun 18, 2024 01:00 PM AMBULATORY - SURGERY [place] [facility] Jun 21, 2024 09:30 AM AMBULATORY - REHAB MEDICIN E [place] [facility] Jul 17, 2024 03:00 PM AMBULATORY - REHAB MEDICIN E [place] [facility] Jul 18, 2024 11:30 AM AMBULATORY - SURGERY [place] [facility] Jul 23, 2024 03:00 PM AMBULATORY - REHAB MEDICIN E [place] [facility] Social History: Smoking Status (Most current) and Tobacco Use (All prior to encounter date) This section includes the most current, and the historical, smoking and tobacco- related health factors from the [place] facility where the Encounter took place. Current Smoking Status This section includes the most current smoking, or tobacco-related health factor, from the [place] facility where the Encounter took place. Date/Time Current Smoking Status Comment Anjali ayala Apr 21, 2023 11:00 AM VA-TOBACCO NEVER USED [facility] Tobacco Use History This section includes a history of the smoking, or tobacco-related health factors, that were collected on or before the date of the Encounter. The data comes from the [place] facility where the Encounter took place. Date/Time Smoking Status/Tobacco Use Comment F acility Aug 05, 2021 09:04 AM VA-TOBACCO FORMER USER [facility] Aug 05, 2021 09:04 AM VA-TOBACCO QUIT 5 TO < 15 YRS [facility] Jul 03, 2020 08:45 AM VA-TOBACCO FORMER USER [facility] Jul 03, 2020 08:45 AM VA-TOBACCO QUIT 5 TO < 15 YRS [facility] Dec 20, 2005 03:58 PM LIFETIME NON-TOBACCO USER [facility] Encounter Notes: All associated encounter notes This section contains the clinical notes associated to the Encounter. Date/Time Encounter Note(s) Provider Source February 01, 2024 08:13 AM ORTHOPEDIC SURGERY CONSULT: LOCAL TITLE: CONSULT: Orthopedic Surgery STANDARD TITLE: ORTHOPEDIC SURGERY CONSULT DATE OF NOTE: FEBRUARY 01, 2024@08:13 ENTRY DATE: FEBRUARY 01, 2024@08:13:35 AUTHOR: ROBERTO MIRELES EXP COSIGNER: URGENCY: STATUS: COMPLETED CONSULT: Orthopedic Surgery Has ADDENDA Greater than 50% of this session was dedicated to counseling and coordination of care. Yes Time spent with patient (minutes): 60 Summary of Counseling and/or Coordination of Care: Pain in R. Shoulder Chief Complaint - RIGHT shoulder pain History of Present Illness: R shoulder pain evaluated by PT request [facility] in [place] Mr. Piter Vo is a 53 year-old [employer]. [employer] who presents with a 10+ year history R shoulder pain. 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 Denies significant injury except for a fall down stairs at home, breaking his fall with his arm. Pain is aching, worse when sleeping on his arm. will wake up 4-5x/night. Also worse with working with his arms out Infront. Pain is in the superolateral shoulder. - for treatment he has been to PT, massage with ultrasound and bands. Has a hx of L. RTC issues which was helped with cortisone injection. states that Past Medical History: Problem List: Posttraumatic stress disorder Exposure to Potentially Hazardous Substance -Pain radiating to left shoulder -Hip pain -Low back pain -Elbow pain -Pain of toe of right foot -Neck pain -Pain of right shoulder joint -Hyperlipidemia -Sensorineural hearing loss, bilateral -Subjective tinnitus Medications: Active Outpatient Medications (excluding Supplies): Active Outpatient Medications Status 1) ATORVASTATIN CALCIUM 20MG TAB 2) CARBOXYMETHYLCELLULOSE NA 0.5% OPH Surgeries: No data available Allergies: LACTOSE, CRESTOR, MULTIVITAMINS, BEE VENOM Labs: A1c: HbA1c/HbA1c POC: Collection DT Specimen Test Name Result Units Ref Range 05/10/2023 13:47 BLOOD HGB 14.7 g/dl 12.8 - 17 Social History Marital Status: Occupation: [employer] ETOH: Smoking: No data available Family History - Non-contributory Review of Systems: A 13-point review of systems is negative except for the above findings. Physical Examination Vitals: B/P PULSE WEIGHT BMI SpO2 PAIN 107/72 63 217.6 28.7 97 6 General - the patient is alert and oriented to person, place, time, and situation and without signs of distress. Cardiovascular Peripheral pulses Upper extremities - +2 radial Pulmonary - no audible wheezes Neurological Sensory - normal sensation Neuro intact to lateral antebrachial cutaneous, axillary, radial, ulnar and median and musculocutaneous nerves Musculoskeletal - RIGHT shoulder exam SKIN: WPD, no ecchymosis, edema, erythema, no scars Forward flexion: AROM: 140 PROM: 170 Abduction: AROM: 105 PROM: 175 Strength Testing Resisted IR with elbow at side: 5/5 External rotation 35 degrees Resisted ER with elbow at side: 4/5 SPECIAL TESTS: ROTATOR CUFF TESTS: Neer: POSITIVE FOR PAIN Jensen: slightly POSITIVE FOR PAIN Belly press: NEGATIVE Lift off: T10 POSITIVE for pain Empty can: POSITIVE FOR PAIN ER Lag NEGATIVE/POSITIVE IR Lag NEGATIVE/POSITIVE BICEPS TENDON TESTS: Tenderness with palpation? NEGATIVE Yergason's NEGATIVE Speed's NEGATIVE LABRAL TESTS: Mackin[place]'s NEGATIVE Cranks NEGATIVE INSTABILITY Sulcus sign NEGATIVE Apprehension NEGATIVE AC JOINT TESTS: Cross-arm slight AC joint tenderness with palpation NEGATIVE Obvious atrophy? NO Imaging studies X-rays: R. Shoulder, Date: 02/09/2011 IMPRESSION Normal study. REPORT Right shoulder: The current study is correlated with the examination of 01/04/2006. The glenohumeral and acromioclavicular joints are within normal limits. The bones are normally mineralized and the periarticular soft tissues are unremarkable as is true of the visualized adjacent superior lateral chest wall. MRI: Date: Pending ASSESSMENT 1. shoulder pain with concern for Rotator cuff syndrome PLAN: We had a long discussion about a stepwise approach to the treatment of rotator cuff impingement syndrome which involves activity modification, low impact exercise, PT, oral anti-inflammatory medications, injections, and sometimes surgery in the form of subacromial decompression. Today this [place] would like to continue care with diclofenac, MRI and new X-ray - RTC 6 weeks to review MRI and X-ray results, possible steroid vs surgical consult. - MRI and R. shoulder X-ray at [facility] - 3% diclofenac ordered I offered Mr. Piter Vo the opportunity to have a phone call or discuss their impending test results in person and he opted to wait and discuss them at his next visit. Today we reviewed all of the recent imaging studies and the patient demonstrates understanding of their meaning. All questions were answered and the patient demonstrates excellent understanding of the instructions and endorses the plan follow-up will be as scheduled and as needed /fredy/ ROBERTO MIRELES Physician Holter Scanning Technician Signed: 02/02/2024 09:29 Receipt Acknowledged By: 02/02/2024 17:36 /fredy/ YFN JEREZ physician 02/02/2024 ADDENDUM STATUS: COMPLETED Patient seen independently by Roberto Mireles PA-C. Documentation reviewed. Agree with assessment and plan. /fredy/ YFN JEREZ physician Signed: 02/02/2024 17:37 FUNMI MIRELES [facility]
--- OUTSIDE RECORDS SUMMARY | 2024-09-15 21:03 | XMS_ITS | Continuity of Care Document ---
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 It does not include entries that were removed or entered in error. Problem Status Onset Date Problem Type Date of Resolution Comments Source gastroenteritis Inactive Condition DoD midback pain Inactive Condition DoD visit for: administrative purpose Inactive Condition DoD acute reaction to stress Inactive Condition DoD Physical Examination Inactive Condition DoD joint stiffness of the hip Inactive Condition DoD joint pain, localized in the hip Active Condition DoD osteoarthritis hip Inactive Condition Do D asthma Inactive Condition DoD nicotine dependence Inactive Condition D oD Patient Education - Medication Inactive Condition DoD visit for: services flight physical Inactive Condition DoD refractive error - hypermetropia Active Condition DoD Patient Education - Proper Use Of Medications Active Condition DoD neck strain Active Condition DoD bursitis trochanteric Inactive Condition DoD Laboratory Studies Inactive Condition Do D visit for: examination of subpopulation Inactive Condition DoD Disorder of tendon of shoulder region Active Condition [facility] Elbow pain Active Condition [facility] Exposure to Potentially Hazardous Substance (SCT 904255206694343) Active Condition [facility] Hip pain Active Condition [facility] Hyperlipidemia (SNOMED CT 01808722) Active Condition [facility] Left Achilles tendinitis Active Condition [facility] Low back pain Active Condition [facility] Neck pain (SNOMED CT 20504704) Active Condition [facility] Pain of right shoulder joint (SNOMED CT 13638748970458843) Active Condition [facility] Pain of toe of right foot (SNOMED CT 312686321677795) Active Condition [facility] Pain radiating to left shoulder Active Condition [facility] Plantar fasciitis Active Condition [facility] Polyp Colon (SCT 32610456) Active Condition Apr 26, 2024 Entered By: DELVIN TRAVIS Comment: [facility] Fall 2022 [facility] Posttraumatic stress disorder Active Condition [facility] Sensorineural hearing loss, bilateral (SNOMED CT 717517362) Active Condition [facility] Subjective tinnitus (SNOMED CT 93248499) Active Condition [facility] Diagnosis: ICD-10-CM L82.1 Other seborrheic keratosis Active Diagnosis [facility] Diagnosis: ICD-10-CM Z23 Encounter for immunization Active Diagnosis [facility] Diagnosis: ICD-10-CM Z13.89 Encounter for screening for other disorder Active Diagnosis [facility] Diagnosis: ICD-10-CM M67.919 Unsp disorder of synovium and tendon, unspecified shoulder Active Diagnosis [facility] Diagnosis: ICD-10-CM M76.62 Achilles tendinitis, left leg Active Diagnosis [facility] Diagnosis: ICD-10-CM Z46.0 Encounter for fit/adjst of spectacles and contact lenses Active Diagnosis [facility] Diagnosis: ICD-10-CM E78.5 Hyperlipidemia, unspecified Active Diagnosis [facility] Diagnosis: ICD-10-CM M75.111 Incomplete rotatr-cuff tear/ruptr of r shoulder, not trauma Active Diagnosis [facility] Diagnosis: ICD-10-CM H61.23 Impacted cerumen, bilateral Active Diagnosis [facility] Diagnosis: ICD-10-CM M25.511 Pain in right shoulder Active Diagnosis [facility] Diagnosis: ICD-10-CM M54.2 Cervicalgia Active Diagnosis [facility] Diagnosis: ICD-10-CM M25.512 Pain in left shoulder Active Diagnosis [facility] Diagnosis: ICD-10-CM M25.561 Pain in right knee Active Diagnosis [facility] Diagnosis: ICD-10-CM M25.551 Pain in right hip Active Diagnosis [facility] Diagnosis: ICD-10-CM F43.10 Post-traumatic stress disorder, unspecified Active Diagnosis [facility] Diagnosis: ICD-10-CM M54.59 Other low back pain Active Diagnosis [facility] Medications Combined list of outpatient medications from Department of Defense and Veterans Affairs facilities.Medications provided include 1) outpatient medications from the last 15 months, and 2) patient-reported medications. Medication Details Route Status Patient Instructions Prescription Expires Prescription Number Last Dispense Date Ordering Provider Order Date Order Qty Source ATORVASTATI N [place] 20MG TAB TAKE ONE TABLET BY MOUTH EVERY EVENING ORAL ACTIVE 04/12/2025 [id number] THADDEUS,EV ELYN L 2023 90 [facility] ATORVASTATI N CA 20MG TAB TAKE ONE TABLET BY MOUTH EVERY EVENING ORAL DISCONT INUED 03/23/2024 [id number] THADDEUS,EV ELYN L 2022 90 [facility] CARBOXYMETH YLCELLULOSE NA 0.5% SOLN,OPH INSTILL ONE DROP IN BOTH EYES TWICE DAILY NEEDED FOR DRYNESS DRY EYE OPHTHA LMIC 03/23/2024 [id number] THADDEUS,EV ELYN L 2022 30 [facility] DICLOFENAC NA 3% GEL,TOP APPLY 1 THIN FILM TOPICALL Y TWICE A DAY FOR PAIN/INF LAMMATIO N TOPICA L ACTIVE 02/01/2025 [id number] WINNER, RISTOPHER L 2023 100 [facility] Allergies, Adverse Reactions, Alerts Combined list of allergies from Department of Defense and Veterans Affairs facilities. It does not include entries that were removed or entered in error. Substance Category Reaction Severity Reaction type Status Date Reported Comments Source BEE VENOM Propensity to adverse reaction (finding) Swelling MODERATE active [address] [facility] CRESTOR Propensity to adverse reactions to drug (finding) Headache active [address] [facility] LACTOSE Propensity to adverse reactions to substance (finding) Abdominal bloating active 6 [facility] Lactose, Monohydrate (Do Not Use, Not Screened) Food allergy (disorder) Abdominal bloating active 6 [facility] MULTIVITAMINS Propensity to adverse reactions to drug (finding) Headache, Eruption active [address] [facility] Immunizations Combined list of available immunizations from the Department of Defense and Veterans Affairs facilities. Immunization Series Date Given Administered By Site Reaction Lot Number CVX Code Drug Driver Supervisor Status Comments Source INFLUENZA, SPLIT VIRUS, TRIVALENT, PF 2023 FERNYROBERT LEFT DELTO ID [id number] 140 complet ed [facility] INFLUENZA, INJECTABLE, QUADRIVALENT, PRESERVATIVE FREE 2023 GEOFFREY BEASLEY LEFT DELTO ID [id number] 150 complet ed [facility] TDAP 2022 SANDRA LEIVA LEFT DELTO ID [id number] 115 complet ed [facility] INFLUENZA, INJECTABLE, QUADRIVALENT, PRESERVATIVE FREE 2021 150 complet [facility] PNEUMOCOCCAL CONJUGATE PCV20, POLYSACCHARID E [id number] CONJUGATE, ADJUVANT, PF 2021 216 complet ed [facility] COVID-19 (MODERNA), MRNA, LNP-S, PF, 100 MCG OR 50 MCG DOSE 3 2020 207 complet ed MOD; [id number]; 2 [facility] INFLU[facility], INJECTABLE, QUADRIVALENT, PRESERVATIVE FREE 2020 150 complet ed [facility] ZOSTER RECOMBINANT 2 2020 187 complet ed [facility] ZOSTER RECOMBINANT 2 2020 187 complet ed [facility] COVID-19 (MODERNA), MRNA, LNP-S, PF, 100 MCG/0.5 ML DOSE 2 2020 207 complet ed MOD; [id number]; [address] [facility] COVID-19 (MODERNA), MRNA, LNP-S, PF, 100 MCG/0.5 ML DOSE 1 2020 207 complet ed MOD; [id number]; [address] [facility] ZOSTER RECOMBINANT 1 2020 187 complet ed [facility] INFLU[facility]ZA, INJECTABLE, QUADRIVALENT, PRESERVATIVE FREE [address] [facility] INFLUENZA, INJECTABLE, QUADRIVALENT, PRESERVATIVE FREE 2018 150 complet ed Site: Left Deltoid [facility] PNEUMOCOCCAL POLYSACCHARID E PPV23 2018 33 complet ed [facility] INFLUENZA, SEASONAL, INJECTABLE 2016 141 complet ed [facility] y [facility] TDAP 2012 115 complet ed Site: Left Deltoid [facility] INFLUENZA, UNSPECIFIED FORMULATION 2012 88 complet ed Site: Left Deltoid [facility] INFLUENZA, UNSPECIFIED FORMULATION 2011 88 complet ed [facility] INFLUENZA, UNSPECIFIED FORMULATION 2010 88 complet ed [facility] Novel influenza-H1N 1-09, injectable 1 2008 [id number] 127 Unknown (UNK) complet ed Novel influenza -R4K2-82, injectabl e DoD NOVEL INFLUENZA-H1N 1-09, ALL FORMULATIONS 2008 128 complet ed [facility] influenza virus vaccine, split virus (incl. purified surface antigen)-reti red CODE 1 2008 [id number] 15 Unknown (UNK) complet ed influenza virus vaccine, split virus (incl. purified surface antigen)- retired CODE DoD hepatitis B vaccine, adult dosage 3 2007 [id number] 43 Unknown (UNK) complet ed hepatitis B vaccine, adult dosage DoD influenza virus vaccine, split virus (incl. purified surface antigen)-reti red CODE 1 2004 [id number] 15 Unknown (UNK) comple t ed influenza virus vaccine, split virus (incl. purified surface antigen)- retired CODE DoD hepatitis B vaccine, adult dosage 2 2004 [id number] 43 Unknown (UNK) complet ed hepatitis B vaccine, adult dosage DoD varicella virus vaccine 1 2004 NONE 21 (NON) Not Given varicella virus vaccine DoD hepatitis A vaccine, adult dosage 2 2003 [id number] Merck (MSD) complet ed hepatitis A vaccine, adult dosage DoD influenza virus vaccine, split virus (incl. purified surface antigen)-reti red CODE 1 2003 [id number] 15 [employer] (AVB) complet ed influenza virus vaccine, split virus (incl. purified surface antigen)- retired CODE DoD hepatitis B vaccine, adult dosage 1 2003 [id number] 43 SmithKline (SKB) complet ed hepatitis B vaccine, adult dosage DoD vaccinia (smallpox) vaccine 1 2003 [id number] Dwayne (WAL) complet ed vaccinia (smallpox ) vaccine DoD typhoid Vi capsular polysaccharid e vaccine 1 2003 [id number] [employer] (AVB) complet ed typhoid Vi capsular polysacch aride vaccine DoD measles, mumps and rubella virus vaccine 1 2003 [id number] 03 Merck (MSD) complet ed measles, mumps and rubella virus vaccine DoD tetanus and diphtheria toxoids, adsorbed, preservative free, for adult use (2 Lf of tetanus toxoid and 2 Lf of diphtheria toxoid) 1 2003 [id number] Sanofi Pasteur (PMC) complet ed tetanus and diphtheri a toxoids, adsorbed, preservat katina free, for adult use (2 Lf of tetanus toxoid and 2 Lf of diphtheri a toxoid) DoD poliovirus vaccine, inactivated 1 2003 [id number] 10 Sanofi Pasteur (PMC) complet ed polioviru s vaccine, inactivat ed DoD meningococcal polysaccharid e vaccine (MPSV4) 1 2003 [id number] Sanofi Pasteur (PMC) complet ed meningoco ccal polysacch aride vaccine (MPSV4) DoD hepatitis A vaccine, adult dosage 1 2003 [id number] 52 Merck (MSD) complet ed hepatitis A vaccine, adult dosage DoD TD(ADULT) UNSPECIFIED FORMULATION 2003 139 complet ed [facility] Results Combined list of recent chemistry, hematology and other laboratory results from Department of Defense and Veterans Affairs, ranging from 15 months to all on record, depending upon the facility. Order Name Results Value Reference Range Date Interpretation Specimen Comments Source GLYCOHEMO GLOBIN (A1C ONLY) HEMOGLOBIN A1C/HEMOGLO BIN.TOTAL IN BLOOD BY HPLC 5.2 4.0 - 5.6 04/26 Specimen Type: BLOOD Comment: , Tests performed on [employer] SN:[id number] (405) Values obtained from A1C measurement s can vary. For typical A1C assays, a reported value of 7.0 could actually be between 6.72 and 7.28 if measured by a reference method. A reported value of 9.0 could actually be between 8.73 and 9.27. Ref: http://www. ngsp.org/[place] Pdata.asp Ordering Provider: DELVIN TRAVIS Report Released Date/Time: Apr 18, 2024 03:01 PM Reporting Lab: [facility] [address] [facility] [address] Performing Lab: [facility] [address] [facility] [address] [facility] PSA (ARCHITEC T) PROSTATE SPECIFIC AG [MASS/VOLUM E] IN SERUM OR PLASMA 1.15 ng/mL 04/26 Specimen Type: SERUM Comment: , Tests performed on [employer] SN:[id number] (405) TSH within normal limits. Reflex testing not required. Ordering Provider: DELVIN TRAVIS Report Released Date/Time: Apr 18, 2024 03:01 PM Reporting Lab: [facility] [address] [facility] [address] Performing Lab: [facility] [address] [facility] [address] [facility] LIPOPROTE IN CHOLESTER OL FRACT. PANEL CHOLESTEROL [MASS/VOLUM E] IN SERUM OR PLASMA 167 mg/dL 0 - 200 04/26 Specimen Type: PLASMA Comment: , Tests performed on [employer] SN:[id number] (405). Ordering Provider: DELVIN TRAVIS Report Released Date/Time: Apr 18, 2024 03:01 PM [facility] [address] [facility] [address] [facility] [address] [facility] [address] [facility] LIPOPROTE IN CHOLESTER OL FRACT. PANEL TRIGLYCERID E [MASS/VOLUM E] IN SERUM OR PLASMA 238 mg/dL 0 - 150 04/26 H Specimen Type: PLASMA Comment: , Tests performed on [employer] SN:[id number] (405). Ordering Provider: DELVIN TRAVIS Report Released Date/Time: Apr 18, 2024 03:01 PM [facility] [address] [facility] [address] Performing Lab: [facility] [address] [facility] [place] [address] [facility] LIPOPROTE IN CHOLESTER OL FRACT. PANEL CHOLESTEROL IN HDL [MASS/VOLUM E] IN SERUM OR PLASMA 35 mg/dL 40 04/26 L Specimen Type: PLASMA Comment: , Tests performed on [employer] Gerald SN:[id number] (405). Ordering Provider: DELVIN TRAVIS Report Released Date/Time: Apr 18, 2024 03:01 PM Reporting Lab: [facility] [address] [facility] [place] [address] Performing Lab: [facility] [address] [facility] [place] [address] [facility] LIPOPROTE IN CHOLESTER OL FRACT. PANEL CHOLESTEROL IN LDL [MASS/VOLUM E] IN SERUM OR PLASMA BY CALCULATION 84 mg/dL 0 - 129 04/26 Specimen Type: PLASMA Comment: , Tests performed on [employer] Gerald SN:[id number] (405). Ordering Provider: DELVIN TRAVIS Report Released Date/Time: Apr 18, 2024 03:01 PM Reporting Lab: [facility] [address] [facility] [address] Performing Lab: [facility] [address] [facility] [address] [facility] LIVER PROFILE PROTEIN [MASS/VOLUM E] IN SERUM OR PLASMA 7.0 g/dL 6.0 - 8.5 04/26 Specimen Type: PLASMA Comment: , Tests performed on [employer] Gerald SN:[id number] (405). Ordering Provider: DELVIN TRAVIS Report Released Date/Time: Apr 18, 2024 03:01 PM Reporting Lab: [facility] [address] [facility] [place] [address] Performing Lab: [facility] [address] [facility] [address] [facility] LIVER PROFILE ALBUMIN [MASS/VOLUM E] IN SERUM OR PLASMA 3.9 g/dL 3.2 - 5.0 04/26 Specimen Type: PLASMA Comment: , Tests performed on [employer] Gerald SN:[id number] (405). Ordering Provider: DELVIN TRAVIS Report Released Date/Time: Apr 18, 2024 03:01 PM Reporting Lab: [facility] [address] [facility] [address] Performing Lab: [facility] [address] [facility] [address] [facility] LIVER PROFILE BILIRUBIN.T OTAL [MASS/VOLUM E] IN SERUM OR PLASMA 0.6 mg/dL 0.2 - 1.2 04/26 Specimen Type: PLASMA Comment: , Tests performed on [employer] SN:[id number] (405). Ordering Provider: DELVIN TRAVIS Report Released Date/Time: Apr 18, 2024 03:01 PM Reporting Lab: [facility] [address] [facility] [address] Performing Lab: [facility] [address] [facility] [address] [facility] LIVER PROFILE ALKALINE PHOSPHATASE [ENZYMATIC ACTIVITY/VO LUME] IN SERUM OR PLASMA 52 U/L 40 - 150 04/26 Specimen Type: PLASMA Comment: , Tests performed on [employer] SN:[id number] (405). Ordering Provider: DELVIN TRAVIS Report Released Date/Time: Apr 18, 2024 03:01 PM Reporting Lab: [facility] [address] [facility] [address] Performing Lab: [facility] [address] [facility] [address] [facility] LIVER PROFILE ALANINE AMINOTRANSF ERASE [ENZYMATIC ACTIVITY/VO LUME] IN SERUM OR PLASMA 32 U/L 7 - 52 04/26 Specimen Type: PLASMA Comment: , Tests performed on [employer] SN:[id number] (405). Ordering Provider: DELVIN TRAVIS Report Released Date/Time: Apr 18, 2024 03:01 PM Reporting Lab: [facility] [address] [facility] [address] Performing Lab: [facility] [address] [facility] [address] [facility] LIVER PROFILE ASPARTATE AMINOTRANSF ERASE [ENZYMATIC ACTIVITY/VO LUME] IN SERUM OR PLASMA 20 U/L 5 - 34 04/26 Specimen Type: PLASMA Comment: , Tests performed on [employer] Gerald SN:[id number] (405). Ordering Provider: DELVIN TRAVIS Report Released Date/Time: Apr 18, 2024 03:01 PM Reporting Lab: [facility] [address] [facility] [address] Performing Lab: [facility] [address] [facility] [address] [facility] LIVER PROFILE FIB-4 SCORE 0.66 <2.67 - 2.67 04/26 Specimen Type: PLASMA Comment: , Tests performed on [employer] Gerald SN:[id number] (405). Ordering Provider: DELVIN TRAVIS Report Released Date/Time: Apr 18, 2024 03:01 PM Reporting Lab: [facility] [address] [facility] [address] Performing Lab: [facility] [address] [facility] [address] [facility] CBC NO DIFF LEUKOCYTES [#/VOLUME] IN BLOOD BY AUTOMATED COUNT 6.9 10*3/u L 4.5 - 11.0 04/26 Specimen Type: BLOOD No comment entered. Ordering Provider: DELVIN TRAVIS Report Released Date/Time: Apr 18, 2024 03:01 PM Reporting Lab: [facility] [address] [facility] [address] Performing Lab: [facility] [address] [facility] [address] [facility] CBC NO DIFF ERYTHROCYTE S [#/VOLUME] IN BLOOD BY AUTOMATED COUNT 5.32 10*6/u L 4.23 - 5.66 04/26 Specimen Type: BLOOD No comment entered. Ordering Provider: DELVIN TRAVIS Report Released Date/Time: Apr 18, 2024 03:01 PM Reporting Lab: [facility] [address] [facility] [address] Performing Lab: [facility] [address] [facility] [address] [facility] CBC NO DIFF HEMOGLOBIN [MASS/VOLUM E] IN BLOOD 15.6 g/dL 12.8 - 17 07/25 /2024 Specimen Type: BLOOD No comment entered. Ordering Provider: DELVIN TRAVIS Report Released Date/Time: Apr 18, 2024 03:01 PM Reporting Lab: [facility] [address] [facility] [address] Per[facility] Lab: [facility] [address] [facility] [address] [facility] CBC NO DIFF HEMATOCRIT [VOLUME FRACTION] OF BLOOD BY AUTOMATED COUNT 45.9 39.2 - 50.4 04/26 Specimen Type: BLOOD No comment entered. Ordering Provider: DELVIN TRAVIS Report Released Date/Time: Apr 18, 2024 03:01 PM Reporting Lab: [facility] [address] [facility] [address] Performing Lab: [facility] [address] [facility] [address] [facility] CBC NO DIFF MCV [ENTITIC VOLUME] BY AUTOMATED COUNT 86.3 fL 82 - 99 04/26 Specimen Type: BLOOD No comment entered. Ordering Provider: DELVIN TRAVIS Report Released Date/Time: Apr 18, 2024 03:01 PM Reporting Lab: [facility] [address] [facility] [address] Performing Lab: [facility] [address] [facility] [address] [facility] CBC NO DIFF MCH [ENTITIC MASS] BY AUTOMATED COUNT 29.3 pg 26.2 - 32.6 04/26 Specimen Type: BLOOD No comment entered. Ordering Provider: DELVIN TRAVIS Report Released Date/Time: Apr 18, 2024 03:01 PM Reporting Lab: [facility] [address] [facility] [address] Performing Lab: [facility] [address] [facility] [address] [facility] CBC NO DIFF MCHC [MASS/VOLUM E] BY AUTOMATED COUNT 34.0 g/dL 30.8 - 35.1 04/26 Specimen Type: BLOOD No comment entered. Ordering Provider: DELVIN TRAVIS Report Released Date/Time: Apr 18, 2024 03:01 PM Reporting Lab: [facility] [address] [facility] [address] Performing Lab: [facility] [address] [facility] [address] [facility] CBC NO DIFF PLATELETS [#/VOLUME] IN BLOOD BY AUTOMATED COUNT 285 10*3/u L 140 - 360 04/26 Specimen Type: BLOOD No comment entered. Ordering Provider: DELVIN TRAVIS Report Released Date/Time: Apr 18, 2024 03:01 PM Reporting Lab: [facility] [address] [facility] [address] Performing Lab: [facility] [address] [facility] [address] [facility] CBC NO DIFF PLATELET MEAN VOLUME [ENTITIC VOLUME] IN BLOOD BY AUTOMATED COUNT 10.4 fL 9.2 - 12.4 04/26 Specimen Type: BLOOD No comment entered. Ordering Provider: DELVIN TRAVIS Report Released Date/Time: Apr 18, 2024 03:01 PM Reporting Lab: [facility] [address] [facility] [address] Performing Lab: [facility] [address] [facility] [address] [facility] CBC NO DIFF ERYTHROCYTE DISTRIBUTIO N WIDTH [RATIO] BY AUTOMATED COUNT 12.1 12.0 - 16.0 04/26 Specimen Type: BLOOD No comment entered. Ordering Provider: DELVIN TRAVIS Report Released Date/Time: Apr 18, 2024 03:01 PM Reporting Lab: [facility] [address] [facility] [address] Performing Lab: [facility] [address] [facility] [address] [facility] THYROID TESTING CASCADE THYROTROPIN [UNITS/VOLU ME] IN SERUM OR PLASMA 1.13 u[IU]/ mL 0.35 - 5.00 04/26 Specimen Type: SERUM Comment: , Tests performed on [employer] SN:[id number] (405) TSH within normal limits. Reflex testing not required. Ordering Provider: DELVIN TRAVIS Report Released Date/Time: Apr 18, 2024 03:01 PM Reporting Lab: [facility] [address] [facility] [address] [facility] [address] [facility] [address] [facility] P4 GLU,BUN,C REAT,LYTE S,CA UREA NITROGEN [MASS/VOLUM E] IN SERUM OR PLASMA 17 mg/dL 7 - 25 04/26 Specimen Type: PLASMA Comment: , Tests performed on [employer] Gerald SN:[id number] (405). Ordering Provider: DELVIN TRAVIS Report Released Date/Time: Apr 18, 2024 03:01 PM [facility] [address] [facility] [address] [facility] [address] [facility] [address] [facility] P4 GLU,BUN,C REAT,LYTE S,CA SODIUM [MOLES/VOLU ME] IN SERUM OR PLASMA 135 mmol/L 135 - 145 04/26 Specimen Type: PLASMA Comment: , Tests performed on [employer] Gerald SN:[id number] (405). Ordering Provider: DELVIN TRAVIS Report Released Date/Time: Apr 18, 2024 03:01 PM Reporting Lab: [facility] [address] [facility] [address] Performing Lab: [facility] [address] [facility] [address] [facility] P4 GLU,BUN,C REAT,LYTE S,CA POTASSIUM [MOLES/VOLU ME] IN SERUM OR PLASMA 4.3 mmol/L 3.5 - 5.0 04/26 Specimen Type: PLASMA Comment: , Tests performed on [employer] Gerald SN:[id number] (405). Ordering Provider: DELVIN TRAVIS Report Released Date/Time: Apr 18, 2024 03:01 PM Reporting Lab: [facility] [address] [facility] [address] [facility] Lab: [facility] [address] [facility] [address] [facility] P4 GLU,BUN,C REAT,LYTE S,CA CHLORIDE [MOLES/VOLU ME] IN SERUM OR PLASMA 101 mmol/L 100 - 110 04/26 Specimen Type: PLASMA Comment: , Tests performed on [employer] Developer Gerald SN:[id number] (405). Ordering Provider: DELVIN TRAVIS Report Released Date/Time: Apr 18, 2024 03:01 PM Reporting Lab: [facility] [address] [address] Performing Lab: [facility] [address] [facility] [address] [facility] P4 GLU,BUN,C REAT,LYTE S,CA CARBON DIOXIDE, TOTAL [MOLES/VOLU ME] IN SERUM OR PLASMA 28 mmol/L 20 - 30 04/26 Specimen Type: PLASMA Comment: , Tests performed on [employer] Developer Gerald SN:[id number] (405). Ordering Provider: DELVIN TRAVIS Report Released Date/Time: Apr 18, 2024 03:01 PM Reporting Lab: [facility] [address] [address] [address] Performing Lab: [facility] [address] [facility] [address] [facility] P4 GLU,BUN,C REAT,LYTE S,CA ANION GAP IN SERUM OR PLASMA 6 4 - 16 04/26 Specimen Type: PLASMA Comment: , Tests performed on [employer] Developer Gerald SN:[id number] (405). Ordering Provider: DELVIN TRAVIS Report Released Date/Time: Apr 18, 2024 03:01 PM Reporting Lab: [facility] [address] [address] Performing Lab: [facility] [address] [facility] [address] [facility] P4 GLU,BUN,C REAT,LYTE S,CA GLUCOSE [MASS/VOLUM E] IN SERUM OR PLASMA 94 mg/dL 65 - 100 04/26 Specimen Type: PLASMA Comment: , Tests performed on [employer] Developer Gerald SN:[id number] (405). Ordering Provider: DELVIN TRAVIS Report Released Date/Time: Apr 18, 2024 03:01 PM Reporting Lab: [facility] [address] [address] Performing Lab: [facility] [address] [address] [facility] P4 GLU,BUN,C REAT,LYTE S,CA CREATININE [MASS/VOLUM E] IN SERUM OR PLASMA 0.90 mg/dL 0.50 - 1.50 04/26 Specimen Type: PLASMA Comment: , Tests performed on [employer] Developer Gerald SN:[id number] (405). Ordering Provider: DELVIN TRAVIS Report Released Date/Time: Apr 18, 2024 03:01 PM Reporting Lab: [facility] [address] [address] Performing Lab: [facility] [address] [address] [facility] P4 GLU,BUN,C REAT,LYTE S,CA CALCIUM [MASS/VOLUM E] IN SERUM OR PLASMA 9.5 mg/dL 8.5 - 10.5 04/26 Specimen Type: PLASMA Comment: , Tests performed on [employer] Developer Gerald SN:[id number] (405). Ordering Provider: DELVIN TRAVIS Report Released Date/Time: Apr 18, 2024 03:01 PM Reporting Lab: [facility] [address] [address] [facility]forming Lab: [facility] [address] [address] [facility] P4 GLU,BUN,C REAT,LYTE S,CA GLOMERULAR FILTRATION RATE/1.73 SQ M.PREDICTED [VOLUME RATE/AREA] IN SERUM, PLASMA OR BLOOD BY CREATININE- BASED FORMULA (CKD-EPI 2020) >90mL/ min 04/26 Specimen Type: PLASMA Comment: , Tests performed on [employer] Developer Gerald SN:[id number] (405). Ordering Provider: DELVIN TRAVIS Report Released Date/Time: Apr 18, 2024 03:01 PM Reporting [facility]: [facility] [address] [address] Performing Lab: [facility] [address] [address] [facility] VIT D 25-OH(WR ) CALCIFEROL (VIT D2) [MASS/VOLUM E] IN SERUM OR PLASMA 36.8 ng/mL 20.0 - 50.0 04/26 Specimen Type: SERUM Comment: , Tests performed on [employer] Bel[employer]an SN:[id number] (405) TSH within normal limits. Reflex testing not required. Ordering Provider: DELVIN TRAVIS Report Released Date/Time: Apr 18, 2024 03:01 PM Reporting Lab: [facility] [address] [address] Performing Lab: [facility] [address] [address] [facility] VIT D 25-OH([facility] ) CALCIFEROL (VIT D2) [MASS/VOLUM E] IN SERUM OR PLASMA 39.3 ng/mL 20 - 50 05/10 Specimen Type: SERUM No comment entered. Ordering Provider: DELVIN TRAVIS Report Released Date/Time: Apr 21, 2023 12:05 PM Reporting Lab: [facility] [address] [address] Performing Lab: [facility] [address] [address] [facility] LIPOPROTE IN CHOLESTER OL FRACT. PANEL CHOLESTEROL [MASS/VOLUM E] IN SERUM OR PLASMA 169 mg/dL 0 - 199 05/10 Specimen Type: PLASMA Comment: Tests performed on [employer] (405) SN:[id number] Ordering Provider: DELVIN TRAVIS Report Released Date/Time: Apr 21, 2023 12:05 PM Reporting Lab: [facility] [address] [address] Performing Lab: [facility] [address] [address] [facility] LIPOPROTE IN CHOLESTER OL FRACT. PANEL TRIGLYCERID E [MASS/VOLUM E] IN SERUM OR PLASMA 311 mg/dL 0 - 149 05/10 H Specimen Type: PLASMA Comment: Tests performed on [employer] (405) SN:[id number] Ordering Provider: DELVIN TRAVIS Report Released Date/Time: Apr 21, 2023 12:05 PM Reporting Lab: [facility] [address] [facility] [place] [address] Performing Lab: [facility] [address] [facility] [place] [address] [facility] LIPOPROTE IN CHOLESTER OL FRACT. PANEL CHOLESTEROL IN HDL [MASS/VOLUM E] IN SERUM OR PLASMA 35 mg/dL 40 05/10 L Specimen Type: PLASMA Comment: Tests performed on [employer] Developer (405) SN:[id number] Ordering Provider: DELIVN TRAVIS Report Released Date/Time: Apr 21, 2023 12:05 PM Reporting Lab: [facility] [address] [facility] [place] [address] Performing Lab: [place] [facility] [address] [facility] [place] [address] [facility] LIPOPROTE IN CHOLESTER OL FRACT. PANEL CHOLESTEROL IN LDL [MASS/VOLUM E] IN SERUM OR PLASMA BY CALCULATION cancmg /dL 0 - 129 05/10 Specimen Type: PLASMA Comment: Tests performed on [employer] Developer (405) SN:[id number] Ordering Provider: DELVIN TRAVIS Report Released Date/Time: Apr 21, 2023 12:05 PM Reporting Lab: [facility] [address] [facility] [place] [address] Performing Lab: [place] [address] [facility] [place] [address] [facility] LIPOPROTE IN CHOLESTER OL FRACT. PANEL CHOLESTEROL IN LDL [MASS/VOLUM E] IN SERUM OR PLASMA BY DIRECT ASSAY 89 mg/dL 0 - 129 05/10 Specimen Type: PLASMA Comment: Tests performed on [employer] Developer (405) SN:[id number] Ordering Provider: DELVIN TRAVIS Report Released Date/Time: Apr 21, 2023 12:05 PM Reporting Lab: [facility] [address] [facility] [place] [address] Performing Lab: [place] [place] [address] [facility] [place] [address] [facility] Vital Signs Combined list of inpatient and outpatient Vital Signs from Department of Defense and Veterans Affairs, ranging from 12 months to all on record, depending upon the facility. Vital Sign Value Date Comments Source SYSTOLIC BLOOD PRESSURE 116 04/26/2024 09:12:[facility] DIASTOL[facility] BLOOD PRESSURE 80 04/26/2024 09:12:53 [facility] PULSE OXIMETRY 96 04/26/2024 09:12:53 [facility] WEIGHT 220.6 04/26/2024 09:12:53 [facility] BMI 29kg/m2 04/26/2024 09:12:53 [facility] PAIN 0 04/26/2024 09:12:53 [facility] HEIGHT 73 04/26/2024 09:12:53 [facility] TEMPERATURE 96.8 04/26/2024 09:12:53 [facility] PULSE 63 04/26/2024 09:12:53 [facility] Encounters Combined list of: 1) Encounters from Department of Veterans Affairs facilities going back up to thelast 18 months. 2) Encounters from the Department of Defense facilities going back up to 280 months. Location Location Details Encounter Type Encounter Number Reason For Visit Attending Provider ADM Date DC Date Status Disposition Source Theater Facility OUTPATIENT [id number] 02/01 Released w/o Limitations [facility] OUTPATIENT [id number] 02/14 Released w/o Limitations [facility] OUTPATIENT [id number] 02/14 Released w/o Limitations [facility] OUTPATIENT [id number] 02/15 Released w/o Limitations [facility] OUTPATIENT [id number] 02/17 Released w/o Limitations [facility] OUTPATIENT [id number] 02/19 Released w/o Limitations [facility] OUTPATIENT [id number] 02/27 Released w/o Limitations [facility] OUTPATIENT [id number] 03/05 Released w/o Limitations [facility] OUTPATIENT [id number] 03/14 Released w/o Limitations [facility] OUTPATIENT [id number] 03/19 Released w/o Limitations [facility] OUTPATIENT [id number] 03/21 Released w/o Limitations [facility] OUTPATIENT [id number] 04/04 Released w/o Limitations [facility] OUTPATIENT [id number] 04/11 Released w/o Limitations [facility] OUTPATIENT [id number] 05/11 Released w/o Limitations [facility] OUTPATIENT [id number] 06/04 Released w/o Limitations [facility] OUTPATIENT [id number] 06/04 Released w/o Limitations [facility] OUTPATIENT [id number] 06/12 Released w/o Limitations [facility] OUTPATIENT [id number] 07/05 Released w/o Limitations [facility] OUTPATIENT [id number] 07/24 Released w/o Limitations [facility] OUTPATIENT [id number] 08/20 Released w/o Limitations [facility] OUTPATIENT [id number] 08/29 Released w/o Limitations [facility] Outpatient Encounter [id number] [facility] NEUROMUSCU [place] [id number] [id number] Diagnos is: ICD-10- CM M54.59 Other low back pain
MICUCCI,SA Y 04/11 [facility] NEUROMUSCU LAR REEDUCATIO N [id number] [id number] Diagnos is: ICD-10- CM M25.551 Pain in right hip<br/ > MICUCCI,SA Y 04/20 [facility] Outpatient Encounter [id number] [facility] OFFICE O/P EST MOD 30-39 MIN [id number] [id number] Diagnos is: ICD-10- CM F43.10 Post-tr aumatic stress disorde r, unspeci fied
CELSO LEIVA 04/21 [facility] [place] [facility] Outpatient Encounter [id number] 04/26 [place] [facility] MANUAL THERAPY 1/> [facility] [id number] Diagnos is: ICD-10- CM M25.551 Pain in right hip<br/ > MICUCCI,SA LLY 05/10 [facility] [place] [facility] Outpatient Encounter [id number] 05/10 [place] [facility] [place] [facility] Outpatient Encounter [id number] [id number] 05/20 [place] [facility] [place] [facility] Outpatient Encounter [id number] [id number] 05/20 [place] [facility] [place] [facility] Outpatient Encounter [id number] [id number] 06/04 [place] [facility] [place] [facility] Outpatient Encounter [id number] 07/04 [place] [facility] HOT OR COLD PACKS THERAPY [id number] Diagnos is: ICD-10- CM M25.561 Pain in right knee
MICUCCI,SA LLY 07/12 [facility] UNLISTED MODALITY [id number] 5HC. 56 Diagnos is: ICD-10- CM M25.511 Pain in right shoulde r
MICUCCI,SA LLY 09/09 [facility] MANUAL THERAPY 1/> [facility] [id number] Diagnos is: ICD-10- CM M25.511 Pain in right shoulde r
MICUCCI,SA LLY 11/04 [facility] [place] [facility] Outpatient Encounter [id number] 11/04 [facility] EST MAY X REQ PHY/QHP [id number] [id number] Diagnos is: ICD-10- CM Z23 Encount er for immuniz ation<b r/> Dorothy BEASLEYRONN 11/04 [facility] Outpatient Encounter [id number] [id number] 11/16 [facility] [place] [id number] [id number] Diagnos is: ICD-10- CM M25.512 Pain in left shoulde r
MICUCCI,SA LLY 11/17 [facility] Outpatient Encounter [id number] [id number] 11/22 [facility] NEUROMUSCU LAR REEDUCATIO N [id number] [id number] 06 Diagnos is: ICD-10- CM M54.2 Cervica lgia
MICUCCI,SA LLY 11/22 [facility] Outpatient Encounter [id number] [id number] MICUCCI,SA LLY 12/04 [facility] OFFICE O/P NEW HI 60 MIN [id number] [id number] Diagnos is: ICD-10- CM M25.511 Pain in right shoulde r
WINNER,CHR ISTOPHER L 01/31 [facility] FIT SPECTACLES MONOFOCAL [id number] [id number] Diagnos is: ICD-10- CM Z46.0 Encount er for fit/adj st of spectac les and contact lenses< br/> MILLER MAGAÑA 02/01 [facility] Outpatient Encounter [id number] [id number] 03/05 [facility] OFF/OP EST MAY X REQ PHY/QHP [id number] [id number] Diagnos is: ICD-10- CM H61.23 Impacte d yoav alexis al
CELSO LEIVA M 03/05 [facility] Outpatient Encounter [id number] [id number] 04/10 [facility] OFFICE O/P EST MOD 30 MIN [id number] [id number] Diagnos is: ICD-10- CM M75.111 Incompl ete rotatr- cuff tear/ru ptr of r shoulde r, not trauma< br/> SUKHDEV,CHR ISTOPHER L 04/18 [facility] Outpatient Encounter [id number] [id number] 04/26 [facility] OFFICE O/P EST MOD 30 MIN [id number] [id number] Diagnos is: ICD-10- CM E78.5 Hyperli pidemia , unspeci fied
THADDEUS,YVETTE RYDER L 04/26 [facility] Outpatient Encounter [id number] [id number] 05/01 [facility] NEUROMUSCU LAR REEDUCATIO N [id number] [id number] Diagnos is: ICD-10- CM M67.919 Unsp disorde r of synoviu m and tendon, unspeci fied shoulde r
MICUCCI,SA LLY 05/03 [facility] Outpatient Encounter [id number] [id number] 05/15 [facility] Outpatient Encounter [id number] [id number] 05/17 [facility] Outpatient Encounter [id number] [id number] 05/21 [facility] Outpatient Encounter [id number] [id number] 05/30 [facility] [place] [id number] [id number] Diagnos is: ICD-10- CM M67.919 Unsp disorde r of synoviu m and tendon, unspeci fied shoulde r
MICUCCI,SA LLY 06/05 [facility] FIT SPECTACLES MULTIFOCAL [id number] [id number] Diagnos is: ICD-10- CM Z46.0 Encount er for fit/adj st of spectac les and contact lenses< br/> MILLER MAGAÑA JA 06/18 [facility] [place] [id number] [id number] Diagnos is: ICD-10- CM M76.62 James s tendini tis, left leg<br/ > MICUCCI,SA LLY 06/21 [facility] Outpatient Encounter [id number] 06/26 [facility] Outpatient Encounter [id number] [id number] 06/28 [facility] THERAPEUTI C EXERCISES [id number] [id number] Diagnos is: ICD-10- CM M67.919 Unsp disorde r of synoviu m and tendon, unspeci fied shoulde r
MICUCCI,SA LLY 07/17 [facility] Outpatient Encounter [id number] [id number] 07/17 [facility] NEUROMUSCU LAR REEDUCATIO N [id number] [id number] Diagnos is: ICD-10- CM M67.919 Unsp disorde r of synoviu m and tendon, unspeci fied shoulde r
MICUCCI,SA LLY 07/23 [facility] Outpatient Encounter [id number] [id number] 07/30 [facility] Outpatient Encounter [id number] [id number] 08/08 [facility] UNLISTED SPEC DERM SVC/PX [id number] [id number] Diagnos is: ICD-10- CM Z13.89 Encount er for screeni ng for other disorde r
AUGSHERWIN HUMPHREYS 08/21 [facility] OFF/OP EST JANUARY X REQ PHY/QHP [id number] [id number] Diagnos is: ICD-10- CM Z23 Encount er for immuniz ation<b r/> PETTIGLIO, ISABELLA A 08/21 [facility] Outpatient Encounter [id number] [id number] Diagnos is: ICD-10- CM L82.1 Other seborrh eic keratos is
TAMAR,N SOPHIA J 08/22 [facility] Procedures Combined list of: 1) Procedures from Department of Veterans Affairs facilities going back up to thelast 18 months, not all VA non-surgical procedures are included; 2) All procedures from the Department of Defense facilities. Procedure Procedure Type Code Date Perfomer Comments Sour e Clinical Social Work Individual Outpatient Counseling 30 Minutes Clinical Social Work Individual Outpatient Counseling 30 Minutes 63627 0 AUBREY LOWE Clinical Social Work Individual Outpatient Counseling 30 Minutes Clinical Social Work Individual Outpatient Counseling 30 Minutes 79831 0 AUBREY LOWE PURE TONE AUDIOMETRY (THRESHOLD); AIR ONLY 0 [facility] INDIVIDUAL PSYCHOTHERAPY, INSIGHT ORIENTED, BEHAVIOR MODIFYING AND/OR SUPPORTIVE, IN AN OFFICE OR OUTPATIENT FACILITY, APPROXIMATELY 20 TO 30 MINUTES [id number] WITH THE PATIENT 0 [facility] INFLUENZA VIRUS VACCINE, TRIVALENT (IIV3), SPLIT VIRUS, 0.5 ML DOSAGE, FOR INTRAMUSCULAR USE 0 [facility] PURE TONE AUDIOMETRY (THRESHOLD); AIR ONLY 0 [facility] INDIVIDUAL PSYCHOTHERAPY, INSIGHT ORIENTED, BEHAVIOR MODIFYING AND/OR SUPPORTIVE, IN AN OFFICE OR OUTPATIENT FACILITY, APPROXIMATELY 20 TO 30 MINUTES [id number] WITH THE PATIENT 0 [facility] UNLISTED OTORHINOLARYNGOLOGICAL SERVICE OR PROCEDURE 6 [facility] Social History Combined list of available smoking, tobacco, and other social history from Department of Defense and Veterans Affairs facilities. Social History Type Response Date Comment Sour e Tobacco smoking status NHIS VA-TOBACCO FORMER USER 04/26/2024 [facility] History of tobacco use [place]-TO[place]ACCO QUIT 1 TO < 5 YRS 04/26/2024 [facility] History of tobacco use VA-TOBACCO NEVER USED 04/21/2023 [facility] History of tobacco use VA-TOBACCO FORMER USER 08/05/2021 [facility] History of tobacco use VA-TOBACCO FORMER USER 07/03/2020 [facility] History of tobacco use VA-TOBACCO NEVER USED 12/20/2017 [facility] History of tobacco use LIFETIME NON-TOBACCO USER 11/15/2017 [facility] History of tobacco use LIFETIME NON-TOBACCO USER 12/20/2005 [facility] This section is an empty social history section. [facility] Plan of Care List of future care activities from Department of Veterans Affairs facilities. Additional future care activities may be listed in the Assessment and Plan section. Date/Time Care Activity Care Activity Detail Facili ty 09/17/2024 AMBULATORY - REHAB MEDICINE AMBULATORY - REHAB MEDICINE [facility] 10/08/2024 AMBULATORY - REHAB MEDICINE AMBULATORY - REHAB MEDICINE [facility] 10/16/2024 AMBULATORY - REHAB MEDICINE AMBULATORY - REHAB MEDICINE [facility]
--- OUTSIDE RECORDS SUMMARY | 2024-09-15 21:03 | XMS_ITS | Encounter Summary ---
Author Name [facility] [facility] [place] [facility] [facility] [place] Address [address] [place] [address] Care Team Providers Care Tubing Tester Name Role Phone ANG ARMANDO Primary Care [...] Relationship to Policy [place] [employer] [place] [place] SOV RET UNDER Nov 03, 2020 [id number] MELLOLISA SHAILESH PATIENT [employer] [place]INT OF SERVICE SOV ACTIV E SELEC TCAR Oct 03, 2018 [id number] LISA SARKAR PATIENT [employer]INT [place] SOV RET UNDER 65 DESTINY Nov 03, 2020 [id number] LISA SARKAR PATIENT [employer]INT OF SERVICE SOV ACTIV E SELEC TCAR Oct 03, 2018 [id number] LISA SARKAR PATIENT [employer] [place]INT OF SERV[place] SOV RET UNDER 65 DESTINY Oct 03, 2018 [id number] LISA SARKAR PATIENT [employer] ([id number]) PRESCRIPT ION [facility] NT Oct 03, 2018 [id number] LISA SARKAR PATIENT Selected Encounter This section includes the information [place] at [place] for the Encounter. Date/Time Encounter Type Encounter Description Reason Pro vider Source Nov 22, 2023 09:58 AM Outpatient Encounter ADMIN PAT ACTIVTIES (MASNONCT) IHE [...] 20 appointments. The data comes from all [place] treatment facilities. Appointment Date/Time Appointment Type Appointme nt Facility Name February 01, 2024 10:30 AM [facility] [facility] Mar 05, 2024 01:30 PM AMBULATORY - MEDICINE [facility] Mar 09, 2024 05:30 PM [facility]ORY - NONE [place] [facility] Apr 11, 2024 08:30 AM [place] [facility] Apr 18, 2024 08:30 AM AMBULATORY - SURGERY [place] [facility] Apr 26, 2024 09:30 AM AMBULATORY - NONE [facility] Apr 26, 2024 10:00 AM AMBULATORY - NONE [facility] May 03, 2024 08:30 AM AMBULATORY - [place]ICIN [place] [facility] May 15, 2024 10:10 AM [facility]ORY - NONE [place] [facility] Encounter Notes: All associated encounter notes This section contains the clinical notes associated to the Encounter. Date/Time Encounter Note(s) Provider Source Nov 22, 2023 09:58 AM LETTERS: LOCAL TITLE: LETTER TO PATIENT ATTEMPT TO CONTACT STANDARD TITLE: LETTERS DATE OF NOTE: NOV 22, 2023@09:58 ENTRY DATE: NOV 22, 2023@09:58:44 AUTHOR: GEN FARLEY EXP COSIGNER: URGENCY: STATUS: COMPLETED [facility] [address] [place] [address] NOV 22, 2023 PITER SARKAR [address] [place] [phone] Dear PITER SARKAR, [facility] [place] is trying to reach you to schedule an appointment. If you have already been in contact with the clinic and scheduled an appointment you may disregard this letter. If we do not hear from you within 14 days, we will assume you no longer desire an appointment. Please call one of the numbers provided below so that we may find a suitable date for you: Service: Optometry Service Direct: [phone] Ext: [phone] Toll Free: [phone] Ext: [phone] We look forward to hearing from you. Sincerely, Clinical Operations GEN FARLEY [facility]
--- OUTSIDE RECORDS SUMMARY | 2024-09-15 21:03 | XMS_ITS | Encounter Summary ---
Author Name [facility] [place] [facility] [place] [facility] [place] Address [address] [place] [address] Care Team Providers Care Drawer Liner Name Role Phone ANG ARMANDO Primary Care [...] Relationship to Policy Ellsworth ANTHEM [employer] [place] POINT OF SERVICE SOV RET UNDER Nov 03, 2020 [id number] [phone] SARKARLISA SHAILESH PATIENT ANTHEM [employer] [place] POINT OF SERVICE SOV ACTIV E SELEC TCAR Oct 03, 2018 [id number] [phone] LISA SARKAR PATIENT [employer] [place] POINT OF SERVICE SOV RET UNDER 65 DESTINY Nov 03, 2020 [id number] LISA SARKAR PATIENT [employer] [place] POINT OF SERVICE SOV ACTIV E SELEC TCAR Oct 03, 2018 [id number] LISA SARKAR PATIENT BS [facility] POINT OF SERVICE SOV RET UNDER 65 DESTINY Oct 03, 2018 [id number] LISA SARKAR PATIENT [employer] ([id number]) PRESCRIPT ION [facility] Oct 03, 2018 [id number] [phone] LISA SARKAR PATIENT Selected Encounter This section includes the information on record at [place] for the Encounter. Date/Time Encounter Type Encounter Description Reason Pro vider Source Nov 04, 2023 11:57 AM Outpatient Encounter TELEPHONE TRIAGE IHE Encounter Template Text not used by [facility] Plan of Treatment: Future Appointments (+ 6 months) and Future Tests (+/- 45 days) The Plan of Treatment section includes future care activities for the patient from all [place] treatmentfacilities. This section includes future appointments and future orders which are active, pending or scheduled. Future Appointments This section includes appointments that were scheduled to occur 6 months from the date of the Encounter, up to a maximum of 20 appointments. The data comes from all [place] treatment facilities. Appointment Date/Time Appointment Type Appointme nt Facility Name Nov 17, 2023 02:00 PM AMBULATORY [place] [facility] Nov 22, 2023 04:00 PM AMBULATORY - [place] [facility] February 01, 2024 10:30 AM AMBULATORY [place] [facility] Mar 05, 2024 01:30 PM AMBULATORY - MEDICINE [facility] Mar 09, 2024 05:30 PM [place] [facility] Apr 11, 2024 08:30 AM AMBULATORY [place] [facility] Apr 18, 2024 08:30 AM AM[place]ULATORY [place] [facility] Apr 26, 2024 09:30 AM AMBULATORY - NONE [place] [facility] Apr 26, 2024 10:00 AM AMBULATORY - NONE [facility] May 03, 2024 08:30 AM AMBULATORY [place] [facility] Encounter Notes: All associated encounter notes This section contains the clinical notes associated to the Encounter. Date/Time Encounter Note(s) Provider Source Nov 04, 2023 11:57 AM PRIMARY CARE ADMIN ISTRATIVE NOTE: LOCAL TITLE: Administrative Note/Primary Care STANDARD TITLE: PRIMARY CARE ADMINISTRATIVE NOTE DATE OF NOTE: NOV 04, 2023@11:57 ENTRY DATE: NOV 04, 2023@11:57:18 AUTHOR: LORI ALEX COSIGNER: URGENCY: STATUS: COMPLETED was in for PT today, asked if he could get a consult to see Liam Mireles here in [place] for his right shoulder. /fredy/ LORI ALEX AMSAudrey Signed: 11/04/2023 11:58 Receipt Acknowledged By: 11/07/2023 12:51 /es/ LORI BARILLAS APRN [facility]
--- OUTSIDE RECORDS SUMMARY | 2024-09-15 21:03 | XMS_ITS | Encounter Summary ---
Author Name [facility] [place] [facility] [place] Address [address] [place] [address] Care Team Providers Care Radio Electronics Technician Name Role Phone ANG ARMANDO Primary Care [...] Ellsworth's Name Patient's Relationship to Policy Ellsworth [facility] [place] [facility] S[facility] RET UNDER Nov 03, 2020 [id number] MELLOLISA SHAILESH PATIENT ANTHEM [employer] [place] POINT OF SERVICE SOV ACTIV E SELEC TCAR Oct 03, 2018 [id number] SARKARLISA PATIENT [employer] [place] POINT OF SERVICE SOV RET UNDER 65 DESTINY Nov 03, 2020 [id number] MELLOLISA CASH PATIENT [employer] [place] POINT OF SERVICE SOV ACTIV E SELEC TCAR Oct 03, 2018 [id number] 00 LISA SARKAR PATIENT [employer] [place] POINT OF SERVICE SOV RET UNDER 65 DESTINY Oct 03, 2018 [id number] LISA SARKAR PATIENT [employer] ([id number]) PRESCRIPT ION [facility] Oct 03, 2018 [id number] LISA SARKAR PATIENT Selected Encounter This section includes the information on record at [place] for the Encounter. Date/Time Encounter Type Encounter Description Reason Provider Source Dec 05, 2023 12:10 PM Outpatient Encounter PROSTHETICS/ORTHOTIC S [address] Encounter Template Text not used by VA [...] 20 appointments. The data comes from all [place] treatment facilities. Appointment Date/Time Appointment Type Appointme nt Facility Name February 01, 2024 10:30 AM [place] [facility] Mar 05, 2024 01:30 PM AMBULATORY - MEDICINE [facility] Mar 09, 2024 05:30 PM [place]ATORY [place] [facility] Apr 11, 2024 08:30 AM AM[place]ORY [place] [facility] Apr 18, 2024 08:30 AM AMBULATORY [place] [facility] Apr 26, 2024 09:30 AM AMBULATORY - NONE [facility] Apr 26, 2024 10:00 AM AMBULATORY - NONE [facility] May 03, 2024 08:30 AM AMBULATORY [place] [facility] May 15, 2024 10:10 AM [place]ULATORY [place] [facility] Jun 05, 2024 02:00 PM AMBULATORY [place] [facility] Jun 06, 2024 02:59 PM [place]ULATORY - [place] [facility]
--- OUTSIDE RECORDS SUMMARY | 2024-09-15 21:04 | XMS_ITS | Encounter Summary ---
Author Name [facility] [place] [facility] [place] Organization [facility] [place] Address [address] [place] [address] Care Team Providers Care Laser Set Up Operator Name Role Phone ANG ARMANDO Primary Care [...] Ellsworth's Name Patient's Relationship to Policy Ellsworth GONZALEZEM [employer] [place] POINT OF SERVICE SOV RET UNDER Nov 03, 2020 [id number] SARKARLISA SHAILESH PATIENT ANTHEM [employer] [place] POINT OF SERVICE SOV ACTIV E SELEC TCAR Oct 03, 2018 [id number] LISA SARKAR PATIENT [employer] [place] POINT OF SERVICE SOV RET UNDER 65 DESTINY Nov 03, 2020 [id number] [phone] LISA SARKAR PATIENT [employer] [place] POINT OF SERVICE SOV ACTIV E SELEC TCAR Oct 03, 2018 [id number] 00 LISA SARKAR PATIENT [employer] [place] POINT OF SERVICE SOV RET UNDER 65 DESTIN[place] Oct 03, 2018 [id number] 00 LISA SARKAR PATIENT [employer] ([id number]) PRESCRIPT ION [facility] Oct 03, 2018 Q54A [id number] [phone] LISA SARKAR PATIENT Selected Encounter This section includes the information on record at [place] for the Encounter. Date/Time Encounter Type Encounter Description Reason Pro vider Source IHE Encounter Template Text not used by VA
--- OUTSIDE RECORDS SUMMARY | 2024-09-15 21:04 | XMS_ITS | Encounter Summary ---
Author Name [facility] [place] Organization [facility] [place] Address [address] [place] [address] Care Team Providers Care Snow Maker Name Role Phone ANG ARMANDO Primary Care [...] Relationship to Policy Ellsworth ANTHEM [employer] [place] POINT OF SERVICE SOV RET UNDER Nov 03, 2020 [id number] MELLOLISA SHAILESH PATIENT ANTHEM [employer] [place] POINT OF SERVICE SOV ACTIV E SELEC TCAR Oct 03, 2018 [id number] LISA SARKAR PATIENT [employer] [place] POINT OF SERVICE SOV RET UNDER 65 DESTINY Nov 03, 2020 [id number] 00 LISA SARKAR PATIENT [employer] [place] POINT OF SERVICE SOV ACTIV E SELEC TCAR Oct 03, 2018 [id number] [phone] LISA SARKAR PATIENT [employer] [place] POINT OF SERVICE SOV RET UNDER 65 DESTIN[place] Oct 03, 2018 [id number] LISA SARKAR PATIENT [employer] ([id number]) [facility]CRIPT [facility] Oct 03, 2018 Q54A [id number] LISA SARKAR PATIENT Selected Encounter This section includes the information on record at [place] for the Encounter. Date/Time Encounter Type Encounter Description Reason Pro vider Source Mar 05, 2024 10:04 AM Outpatient Encounter ADMIN PAT ACTIVTIES (MASNONCT) [...] 20 appointments. The data comes from all [place] treatment facilities. Appointment Date/Time Appointment Type Appointme nt Facility Name Mar 09, 2024 05:30 PM [place]ORY [place] [facility] Apr 11, 2024 08:30 AM [place] [facility] Apr 18, 2024 08:30 AM [place]ORY [place] [facility] Apr 26, 2024 09:30 AM AMBULATORY - NONE [facility] Apr 26, 2024 10:00 AM AMBULATORY - NONE [facility] May 03, 2024 08:30 AM AMBULATORY [place] [facility] May 15, 2024 10:10 AM [place]ULATORY [place] [facility] Jun 05, 2024 02:00 PM AMBULATORY - [place] [facility] Jun 06, 2024 02:59 PM [place]ORY [place] [facility] Jun 18, 2024 01:00 PM [place]UL[place]ORY [place] [facility] Jun 21, 2024 09:30 AM AMBULATORY [place] [facility] Jul 17, 2024 03:00 PM AMBULATORY - REHAB MEDICIN E [facility] Jul 18, 2024 11:30 AM AMBULATORY - SURGERY [facility] Jul 23, 2024 03:00 PM AMBULATORY - REHAB MEDICIN E [facility] Aug 21, 2024 11:00 AM AMBULATORY - MEDICINE [facility] Aug 21, 2024 11:15 AM AMBULATORY - MEDICINE [facility] Radiology Reports: +/- 30 days of the encounter Radiology Reports For cases when an order for radiology services may have been completed prior to the date of the Encounter, the report list includes the Radiology Reports that were completed up to 30 days before dateof the Encounter. For cases when an order for radiology services may have been completed after the date of the Encounter, the report list also includes the Radiology Reports that were completed up to30 days after date of the Encounter. The data comes from all [place] treatment facilities. Date/Time Radiology Report Provider Source Mar 09, 2024 04:11 PM MRI UPPER EXT ANY JOINT WO CONTRAST: PITER SARKAR [id number] -1970 M Exm Date: MAR 09, 2024@16:11 Req Phys: ROBERTO KEENE Loc: HELENE CABRERA (Javier'g Loc) Img Loc: MRI IMAGING (OOS) Service: [place] [facility] [place] [place] [address] (Case [id number] COMPLETE) MRI UPPER EXT ANY JOINT WO CONTRA(MRI Detailed) CPT:32720 Proc Modifiers : RIGHT Reason for Study: R. shoulder MRI Clinical History: SERVICE OEF/OIF LOCATION: N/A SERVICE CONNECTED % - 100 PROCEDURE REQUESTED: R. shoulder MRI CLINICAL HISTORY/REASON FOR REQUEST: 10+ year history of R. shoulder pain, pain is in superiorlateral shoulder. REQUESTING PROVIDER: jasper keeen PA-C PAGER: xxxx PHONE: 2012 Weight: 217.6 lb [98.70 kg] (04/21/2023 11:15) eGFT, BUN, Creatinine (Last 5) Collection DT Spec BUN CREATI eGFR(CK 05/10/2023 13:47 PLASM 16 0.99 >90.0 01/07/2022 08:45 PLASM 18 0.96 >90.0 09/05/2020 12:57 PLASM 14 1.00 12/04/2019 11:31 PLASM 17 1.07 12/19/2018 13:45 PLASM 14 1.01 The MRI scanner is a very powerful magnet & may be harmful to your patients if they have ferromagnetic metallic object(s) in or on their bodies. DOES THE PATIENT HAVE ANY OF THE FOLLOWING DEVICES OR ITEMS? 1. Does the patient have a cardiac pacemaker or defibrillator? No If yes, please consider an alternative imaging modality or find out whether the device is MRI-conditional (compatible) by asking to see the patient's wallet-sized device ID card which provides the make, model,implantation date of the device and whether it's MRI-conditional Or, provide the hospital's name where the device was implanted & the approximate year of implantation: Some of the newer pacemakers or ICDs are MRI-conditional. To find out whether it is MRI-conditional, please see the link below and type in pacemaker,ICD or another word in the Search Word Field: 2. Does the patient have an intracranial aneurysm clip, coil, or ventricular shunt? No 3. Does the patient have any shrapnel, bullets, or metallic foreign body in the eyes or any other body part? No 4. Any surgical implants in the eyes or ears? No 5. Does the patient have a bone growth stimulator,neurostimulator, medication pump, or any other electronic device or leads/wires? No 6. Any implanted vascular stents, coils, filters, or valves? No 7. Any clips placed in the GI tract for bleeding or marking? No 8. Is the patient claustrophobic? No If yes, please prescribe an oral anxiolytic (such as Ativan) for the patient to take with him/her to the MRI appointment.The patient will need to arrange for a armored car guard and driver to take him/her home after the MRI appointment. 9. Does the patient have an allergy to MRI contrast media (Gadolinium)? No 10. Is the patient on dialysis? (Strong relative contraindication for Gadolinium) No 11. Is the patient in acute renal failure? (Strong relative contraindication for Gadolinium) No 12. Is the patient or ? (Relative contraindication for Gadolinium) No Report Status: Verified Date Reported: MAR 16, 2024 Date Verified: MAR 16, 2024 City Recorder E-Sig: Report: MRI UPPER EXT ANY JOINT WO CONTRAST Clinical History: 10+ year history of right shoulder pain. Pain is in superolateral shoulder. Comparison: Right shoulder radiographs 02/09/2011 Technique: The study was protocoled and [facility] the local [facility]. 11 series and 245 images were subsequently received by the [place] [facility] T[facility]ad[facility] (NTP) for interpretation. MRI of the right shoulder was performed without intravenous contrast. Coronal fat saturated proton density, coronal T2, sagittal T1, sagittal fat saturated proton density, axial proton density, axial fat saturated proton density and axial gradient echo weighted sequences were obtained. IV Contrast Not Administered. Findings: A focal full-thickness tear of the insertional junctional zone fibers of the supraspinatus and infraspinatus tendons is noted with adjacent interstitial extension into the posterior supraspinatus tendon fibers. There is no significant tendon retraction. Mild tendinosis of the infraspinatus tendon is noted. The teres minor tendon is intact. Mild tendinosis of the subscapularis without evidence of a discrete tendon tear. Minimal decreased muscle bulk within the supraspinatus and infraspinatus muscles. The deltoid origin is preserved. Mild degenerative changes of the acromioclavicular joint with likely reactive subchondral marrow edema at the distal clavicle. Mild hypertrophic changes contributes to slight indentation of the underlying supraspinatus along its myotendinous junction. No subacromial enthesophyte or os acromiale. Heterogenous increased intrasubstance signal within the anterosuperior glenoid labrum is noted suggestive of age-related labral degeneration. Increased signal along the posterosuperior and posteroinferior chondrolabral junction suggestive of degenerative tearing with associated adjacent small paralabral cysts at the posteroinferior quadrant. Assessment of the glenoid labrum is partially limited on this nonarthrographic exam. Mild tendinosis of the extra-articular long head of the biceps tendon. The long head of the biceps tendon is well situated within the intertubercular groove along its extra-articular course. There is no acute fracture, stress reaction or avascular necrosis. Likely degenerative cystic changes at the anterior aspect of the humeral head. No areas of osseous destruction. Overall alignment is preserved. No significant glenohumeral joint effusion. The overlying subcutaneous soft tissues appear unremarkable. Impression: 1. Focal full-thickness tear of the insertional junctional zone fibers of the supraspinatus and infraspinatus tendons with adjacent interstitial extension into the posterior supraspinatus tendon fibers. No significant tendon retraction. Associated minimal decreased muscle bulk within the supraspinatus and infraspinatus muscles. 2. Mild tendinosis of the subscapularis without a discrete tendon tear. 3. Likely age-related labral degeneration and tearing as detailed above with apparent paralabral cysts along the posteroinferior labrum. Note that the glenoid labrum is suboptimally assessed on this nonarthrographic exam. 4. Mild biceps tendinosis. 5. Mild acromioclavicular joint osteoarthrosis with likely reactive subchondral edema at the distal clavicle. 6. Additional findings as above. READING PHYSICIAN: Romel Harrison M.D. -[phone] 03/15/2024 19:33 [facility] National Teleradiology Program [phone] (For Medical Practitioner Use Only) Attention Patients / Veterans: If you have questions or concerns about these test results, please contact your ordering provider or primary care team. Primary Diagnostic Code: SIGNIFICANT ABNORMALITY, ATTN NEEDED Primary Interpreting Staff: RADIOLOGY,OUTSIDE SERVICE, Staff Physician / RADIOLOGY,OUTSIDE SERVICE [facility] Encounter Notes: All associated encounter notes This section contains the clinical notes associated to the Encounter. Date/Time Encounter Note(s) Provider Source Mar 05, 2024 10:04 AM ADMINISTRATIVE NOT E: LOCAL TITLE: CCC: SCHEDULING ADMINISTRATION STANDARD TITLE: ADMINISTRATIVE NOTE DATE OF NOTE: MAR 05, 2024@10:04:48 ENTRY DATE: MAR 05, 2024@10:04:49 AUTHOR: ALEJANDRA NATH EXP COSIGNER: URGENCY: STATUS: COMPLETED CCC: SCHEDULING ADMINISTRATION Has ADDENDA Patient Demographics Patient Name: PITER SARKAR Patient Primary Phone: [phone] Patient Primary [address]: [address] [place] [id number] Patient : 1970 Patient Age: 53 Call Back Number: [phone] Caller/Recipient Relation to Patient: Self Administrative Administrative Note Reason: Other Administrative Note Comments: PT CALLING TO SCHED AN APPT FOR [facility] REFUSED TRIAGE /es/ ALEJANDRA NATH Signed: 03/05/2024 10:04 Receipt Acknowledged By: 03/05/2024 13:09 /es/ MIKAEL LEIVA LPN 03/05/2024 12:03 /es/ MACKENZIE BEASLEY Registered Nurse * AWAITING SIGNATURE * LORI ALEX 03/05/2024 ADDENDUM STATUS: COMPLETED Please contact to schedule. /fredy/ MACKENZIE BEASLEY Registered Nurse Signed: 03/05/2024 12:04 A[facility]DRA NATH [facility]
--- OUTSIDE RECORDS SUMMARY | 2024-09-15 21:04 | XMS_ITS | Encounter Summary ---
Author Name [place] Address [address] [place] [address] Care Team Providers Care Trimming Department Blocker Name Role Phone ANG ARMANDO Primary Care [...] Relationship to Policy [place] ANTHEM [employer] [place] POINT OF SERVICE SOV RET UNDER Nov 03, 2020 [id number] [phone] MELLOLISA SHAILESH PATIENT ANTHEM [employer] [place] POINT OF SERVICE SOV ACTIV E SELEC TCAR Oct 03, 2018 [id number] SARKARLISA SHAILESH PATIENT [employer] [place] POINT OF SERVICE SOV RET UNDER 65 DESTINY Nov 03, 2020 [id number] MELLOLISA SHAILESH PATIENT [employer] [place] POINT OF SERVICE SOV ACTIV E SELEC TCAR Oct 03, 2018 [id number] LISA SARKAR PATIENT [employer] [place] POINT OF SERVICE SOV RET UNDER 65 DESTINY Oct 03, 2018 [id number] LISA SARKAR PATIENT [employer] ([id number]) PRESCRIPT ION [facility] NT Oct 03, 2018 [id number] LISA SARKAR PATIENT Selected Encounter This section includes the information on record at [place] for the Encounter. Date/Time Encounter Type Encounter Description Reason Provider Source May 03, 2024 08:30 AM NEUROMUSCULAR REEDUCATION PHYSICAL THERAPY ICD-10-CM M67.919 Unsp disorder of synovium and tendon, unspecified shoulder MICUCCI,RINKU IHE Encounter Template Text not used by [facility] Assessments - Encounter Diagnoses This section includes the primary and secondary diagnoses documented for the Encounter. Date/Time Primary/Secondary Diagnosis Diagnosis Name Provider Source May 03, 2024 12:53 PM PRIMARY Unsp disorder of synovium and tendon, unspecified shoulder MICUCCI,RINKU [facility] May 03, 2024 12:53 PM SECOND[facility] Plan of Treatment: Future Appointments (+ 6 [...] Date/Time Appointment Type Appointme nt Facility Name May 15, 2024 10:10 AM AM[place]ULATORY - NONE [place] [facility] Jun 05, 2024 02:00 PM AMBULATORY - [place]IC[place] [facility] Jun 06, 2024 02:59 PM AMBULATORY - NONE [place] [facility] Jun 18, 2024 01:00 PM AMBULATORY - SURGERY [place] [facility] Jun 21, 2024 09:30 AM AMBULATORY - [place] [facility] Jul 17, 2024 03:00 PM AM[facility] [place] [facility] [place] [facility] Jul 18, 2024 11:30 AM AMBULATORY - SURGERY [facility] Jul 23, 2024 03:00 PM [facility] Aug 21, 2024 11:00 AM AMBULATORY - MEDICINE [facility] Aug 21, 2024 11:15 AM AMBULATORY - MEDICINE [facility] Sep 07, 2024 12:15 PM AMBULATORY - MEDICINE [facility] Sep 17, 2024 02:00 PM AMBULATORY - [place] [facility] Oct 08, 2024 03:00 PM [facility] Oct 16, 2024 03:00 PM [facility] Lab Results: +/- 30 days of the encounter This section includes the Chemistry and Hematology Lab Results on record with [facility] for the patient. Radiology Reports and Pathology Reports are provided separately, in subsequent sections. Lab Results This section contains the Chemistry/Hematology Results that were resulted 30 days before or 30 daysafter the date of the Encounter. Date/Time Source Result Type Result - Unit Interpretation Reference Range Comment Apr 26, 2024 10:14 AM [facility] GLYCOHEMOGLOBIN (A1C ONLY) Specimen Type: BLOOD Comment: , Tests performed on [employer] Devin SN:[id number] (405) Values obtained from A1C measurements can vary. For typical A1C assays, a reported value of 7.0 could actually be between 6.72 and 7.28 if measured by a reference method. A reported value of 9.0 could actually be between 8.73 and 9.27. Ref: http://www.ng sp.org/CAPdat a.asp Ordering Provider: FRANCOISE TRAVIS Report Released Date/Time: Apr 18, 2024 03:01 PM Reporting Lab: [facility] [address] [facility] [facility] [address] Performing Lab: [facility] [address] [facility] [address] HEMOGLOBIN A1C 5.2 4.0-5.6 Apr 26, 2024 10:14 AM [facility] PSA (WORK FROM HOME) Specimen Type: SERUM Comment: , Tests performed on [employer] Devin SN:[id number] (405) TSH within normal limits. Reflex testing not required. Ordering Provider: FRANCOISE TRAVIS Report Released Date/Time: Apr 18, 2024 03:01 PM Reporting Lab: [facility] [address] [facility] [facility] [address] Performing Lab: [facility] [address] [facility] [facility] [address] PSA (WORK FROM HOME) 1.15 ng/mL Apr 26, 2024 10:14 AM [facility] LIPOPROTEIN CHOLESTEROL FRACT. PANEL Specimen Type: PLASMA Comment: , Tests performed on [employer] Gerald SN:[id number] (405). Ordering Provider: FRANCOISE TRAVIS Report Released Date/Time: Apr 18, 2024 03:01 PM Reporting Lab: [facility] [address] [facility] [address] Performing Lab: [facility] [address] [facility] [facility] [address] CHOLESTEROL 167 mg/dL 0-200 TRIGLYCERIDE 238 mg/dL H 0-150 HDL CHOLESTEROL 35 mg/dL L >40 LDL CHOLESTEROL (CALC) 84 mg/dL 0-129 Apr 26, 2024 10:14 AM [facility] LIVER PROFILE Specimen Type: PLASMA Comment: , Tests performed on [employer] Super[employer] Gerald SN:[id number] (405). Ordering Provider: FRANCOISE TRAVIS Report Released Date/Time: Apr 18, 2024 03:01 PM Reporting Lab: [facility] [address] [facility] [address] Performing Lab: [facility] [address] [facility] [facility] [address] PROTEIN, TOTAL 7.0 g/dL 6.0-8.5 ALBUMIN 3.9 g/dL 3.2-5.0 BILIRUBIN, TOTAL 0.6 mg/dL 0.2-1.2 ALKALINE PHOSPHATASE 52 U/L 40-150 ALT(SGPT) 32 U/L 7-52 AST(SGOT) 20 U/L 5-34 FIB-4 SCORE 0.66 <2.67 Apr 26, 2024 10:14 AM [facility] CBC NO DIFF Specimen Type: BLOOD No comment entered. Ordering Provider: FRANCOISE TRAVIS Report Released Date/Time: Apr 18, 2024 03:01 PM Reporting Lab: [facility] [address] [facility] [facility] [address] Performing Lab: [facility] [address] [facility] [address] WBC 6.9 10*3/uL 4.5-11.0 RBC 5.32 10*6/uL 4.23-5.66 HGB 15.6 g/dL 12.8-17 HEMATOCRIT 45.9 39.2-50.4 MCV 86.3 fL 82-99 MCH 29.3 pg 26.2-32.6 MCHC 34.0 g/dL 30.8-35.1 PLT 285 10*3/uL 140-360 MPV 10.4 fL 9.2-12.4 RDW 12.1 12.0-16.0 Apr 26, 2024 10:14 AM [facility] THYROID TESTING CASCADE Specimen Type: SERUM Comment: , Tests performed on [employer] SN:[id number] (405) TSH within normal limits. Reflex testing not required. Ordering Provider: FRANCOISE TRAVIS Report Released Date/Time: Apr 18, 2024 03:01 PM Reporting Lab: [facility] [address] [facility] [address] Performing Lab: [facility] [address] [facility] [address] TSH 1.13 u[IU]/mL 0.35-5.00 Apr 26, 2024 10:14 AM [facility] P4 GLU,BUN,CREAT,LYTES,CA Specimen Type: PLASMA Comment: , Tests performed on [employer] SN:[id number] (405). Ordering Provider: FRANCOISE TRAVIS Report Released Date/Time: Apr 18, 2024 03:01 PM Reporting Lab: [facility] [address] [facility] [address] Performing Lab: [facility] [address] [facility] [address] UREA NITROGEN 17 mg/dL 7-25 SODIUM 135 mmol/L 135-145 POTASSIUM 4.3 mmol/L 3.5-5.0 CHLORIDE 101 mmol/L 100-110 CARBON DIOXIDE 28 mmol/L 20-30 ANION GAP 6 4-16 GLUCOSE 94 mg/dL 65-100 CREATININE 0.90 mg/dL 0.50-1.50 CALCIUM 9.5 mg/dL 8.5-10.5 eGFR(CKD-EPI 2020) >90 mL/min Apr 26, 2024 10:14 AM [facility] VIT D 25-OH(WRJ) Specimen Type: SERUM Comment: , Tests performed on [employer]an SN:[id number] (405) TSH within normal limits. Reflex testing not required. Ordering Provider: FRANCOISE TRAVIS Report Released Date/Time: Apr 18, 2024 03:01 PM Reporting Lab: [facility] [address] [facility] [address] Performing Lab: [facility] [address] [facility] [address] VIT D 25-OH([facility]) 36.8 ng/mL 20.0-50.0 Social History: Smoking Status (Most current) and Tobacco Use (All prior to encounter date) This section includes the most current, and the historical, smoking and tobacco- related health factors from the [place] facility where the Encounter took place. Current Smoking Status This section includes the most current smoking, or tobacco-related health factor, from the [place] facility where the Encounter took place. Date/Time Current Smoking Status Comment Anjali ity Apr 26, 2024 09:30 AM [place]-TOBACCO FORMER USER [facility] Tobacco Use History This section includes a history of the smoking, or tobacco-related health factors, that were collected on or before the date of the Encounter. The data comes from the [place] facility where the Encounter took place. Date/Time Smoking Status/Tobacco Use Comment F acility Apr 26, 2024 09:30 AM VA-TOBACCO QUIT 1 TO < 5 YRS [facility] Apr 21, 2023 11:00 AM VA-TOBACCO NEVER USED [facility] Aug 05, 2021 09:04 AM VA-TOBACCO FORMER USER [facility] Aug 05, 2021 09:04 AM VA-TOBACCO QUIT 5 TO < 15 YRS [facility] Jul 03, 2020 08:45 AM VA-TOBACCO FORMER USER [facility] Jul 03, 2020 08:45 AM VA-TOBACCO QUIT 5 TO < 15 YRS [facility] Dec 20, 2005 03:58 PM LIFETIME NON-TOBACCO USER [facility] Encounter Notes: All associated encounter notes This section contains the clinical notes associated to the Encounter. Date/Time Encounter Note(s) Provider Source May 03, 2024 08:30 AM PHYSICAL THERAPY N OTE: LOCAL TITLE: Physical Therapy Note STANDARD TITLE: PHYSICAL THERAPY NOTE DATE OF NOTE: MAY 03, 2024@08:30 ENTRY DATE: MAY 03, 2024@08:30:51 AUTHOR: RINKU LANE COSIGNER: URGENCY: STATUS: COMPLETED Diagnosis: LBP, bilat hip pain worsening. Referred by: Eli BUNCH Referred for: Evaluate and treat Date of Onset: Chronic Start of Physical Therapy plan of care: 07/10/21 Visit # 29 S. R shoulder and upper back have been bothering me. MRI R shoulder- a couple of tears. Seeing the [facility] to discuss options. Might be R traps as when moves neck can feel pain in same area, but shoulder definately direct issue. No exercise for shoulders now. Stretches for low back. Three times/ week. Walking daily. Tried walk jog- but R calf kicks in. R lower calf is an issue- cramps right up with Pins & needles. Chronic: started a few years ago. (MRI [facility]) O. Re- testing C spine: good motion, R pain agg with L side flexion only R shoulder: Pain with h- adduction, loss 20 deg full flexion/ abduction. Pain with Lift hand off HBB. NM re- ed. UE bike HEP: discuss R shoulder lying higher and forward than L. Supine post warm up with UE 90 abduction. Work to rest the back of the R shoulder down on the surface. Manual Therapy IASTM Graston technique R shoulder @ 90 abd neutral, IR, ER and full flexion. Sweep, fan, strum, GT 3, 4 Noted improved texture R pec (upper) and R IR today. Seated C spine/ UT/ scalene in forwards lean and upright, rotated positions with GT 3,4 : sweep, fan, strum, jstroke. Noted congestion and loss of mobility R > L mid C spine. Also corrugated feel lateral UT bilaterally. ========= Assessment/Prognosis/Rehabilit ation Potential: 51 y/o know to this clinic returns with progressing back pain (T-L) and L sciatica. Per PCP for trial [employer], but we also schedule for plan as above this winter. Mod- good rehab potential. ? Nerve vs ST pain: possibly Intercostobrachial, lateral cutaneous branches of Intercostal N, lateral or medial pectoral nerve. Plan: MT, TE, postural re ed Short Term Goals: 4-6 weeks 1. [facility] to be I with shoulder strengthening program. MET Knife Grinder Goals: 8-16 weeks 1. to have strength WFL. Total Time: 55 Manual Therapy 49300 45 Thera Activity 97[address] [place] [address] 10 Hot/Cold Pack 35712 Estim 68803 Ultrasound 26780 Ortho fit Iontophoresis Subs eval SHock therapy [...] to call contact me with questions/concerns- Thank you /fredy/ RINKU LANE Physical Therapist, licenced in [place] Signed: 05/03/2024 12:[address] [facility]
--- OUTSIDE RECORDS SUMMARY | 2024-09-15 21:04 | XMS_ITS | Encounter Summary ---
Author Name [place] Address [address] [place] [address] Care Team Providers Care Human Resources Support Specialist Name Role Phone ANG ARMANDO Primary Care [...] Relationship to Policy [place] ANTHEM [employer] [place] POINT OF SERVICE SOV RET UNDER Nov 03, 2020 [id number] MELLOLISA SHAILESH PATIENT ANTHEM [employer] [place]INT OF SERVICE SOV ACTIV E SELEC TCAR Oct 03, 2018 [id number] [phone] LISA SARKAR PATIENT [employer] [place] POINT OF SERVICE SOV RET UNDER 65 DESTINY Nov 03, 2020 [id number] LISA SARKAR PATIENT [employer] [place] POINT OF SERVICE SOV ACTIV E SELEC TCAR Oct 03, 2018 [id number] [phone] LISA SARKAR PATIENT [employer] [place] POINT OF SERVICE SOV RET UNDER 65 DESTINY Oct 03, 2018 [id number] LISA SARKAR PATIENT [employer] ([id number]) PRESCRIPT ION [facility] NT Oct 03, 2018 [id number] LISA SARKAR PATIENT Selected Encounter This section includes the information on record at [place] for the Encounter. Date/Time Encounter Type Encounter Description Reason Provider Source Mar 05, 2024 01:30 PM OFF/OP EST JANUARY X REQ PHY/QHP PRIMARY CARE/MEDICINE ICD-10-CM H61.23 Impacted cercarlozn, MIKAEL Cunningham Betty Encounter Template Text not used by [facility] Assessments - Encounter Diagnoses This section includes the primary and secondary diagnoses documented for the Encounter. Date/Time Primary/Secondary Diagnosis Diagnosis Name Provider Source Mar 23, 2024 08:03 AM PRIMARY Impacted reuben, MIKAEL Cunningham [facility] Plan of Treatment: Future Appointments (+ 6 months) and Future Tests (+/- 45 days) The Plan of Treatment section includes future care activities for the patient from all [place] treatmentfacilities. This section includes future appointments and future orders which are active, pending or scheduled. Future Appointments This section includes appointments that were scheduled to occur 6 months from the date of the Encounter, up to a maximum of 20 appointments. The data comes from all [place] treatment facilities. Appointment Date/Time Appointment Type Appointme nt Facility Name Mar 09, 2024 05:30 PM AM[place]ULATORY - NONE [place] [facility] [facility] Apr 11, 2024 08:30 AM AM[place] [facility] Apr 18, 2024 08:30 AM [place] [facility] Apr 26, 2024 09:30 AM AMBULATORY - NONE [facility] Apr 26, 2024 10:00 AM AMBULATORY - NONE [facility] May 03, 2024 08:30 AM AM[place]ULATORY [place] [facility] May 15, 2024 10:10 AM AM[place]ORY - NONE [place] [facility] Jun 05, 2024 02:00 PM AMBULATORY - [place] [facility] Jun 06, 2024 02:59 PM AM[place]ULATORY - NONE [place] [facility] Jun 18, 2024 01:00 PM [place] [facility] Jun 21, 2024 09:30 AM AMBULATORY - [place] [facility] Jul 17, 2024 03:00 PM AMBULATORY - [place] [facility] Jul 18, 2024 11:30 AM [place] [facility] Jul 23, 2024 03:00 PM AMBULATORY - [place] [facility] Aug 21, 2024 11:00 AM AMBULATORY - MEDICINE [facility] Aug 21, 2024 11:15 AM AMBULATORY - MEDICINE [facility] Social History: Smoking Status (Most current) and Tobacco Use (All prior to encounter date) This section includes the most current, and the historical, smoking and tobacco- related health factors from the [place] facility where the Encounter took place. Current Smoking Status This section includes the most current smoking, or tobacco-related health factor, from the [place] facility where the Encounter took place. Date/Time Current Smoking Status Comment Facil ity Apr 21, 2023 11:00 AM [place]-TOBAC[place] NEVER USED [facility] Tobacco Use History This section includes a history of the smoking, or tobacco-related health factors, that were collected on or before the date of the Encounter. The data comes from the [place] facility where the Encounter took place. Date/Time Smoking Status/Tobacco Use Comment F acility Aug 05, 2021 09:04 AM VA-TOBACCO FORMER USER [facility] Aug 05, 2021 09:04 AM VA-TOBACCO QUIT 5 TO < 15 YRS [facility] Jul 03, 2020 08:45 AM VA-TOBACCO FORMER USER [facility] Jul 03, 2020 08:45 AM VA-TOBACCO QUIT 5 TO < 15 YRS [facility] Dec 20, 2005 03:58 PM LIFETIME NON-TOBACCO USER [facility] Radiology Reports: +/- 30 days [...] the Encounter. The data comes from all [place] treatment facilities. Date/Time Radiology Report Provider Source Mar 09, 2024 04:11 PM MRI UPPER EXT ANY JOINT WO CONTRAST: PITER SARKAR [id number] -[id number] M Exm Date: MAR 09, 2024@16:11 Req Phys: ROBERTO KEENE Loc: [facility] (Req'g Loc) Img Loc: MRI IMAGING (OOS) Service: [place] [address] (Case [id number] COMPLETE) MRI UPPER EXT ANY JOINT WO CONTRA(MRI Detailed) CPT:24695 Proc Modifiers : RIGHT Reason for Study: R. shoulder MRI Clinical History: SERVICE OEF/OIF LOCATION: N/A SERVICE CONNECTED % - 100 PROCEDURE REQUESTED: R. shoulder MRI CLINICAL HISTORY/REASON FOR REQUEST: 10+ year history of R. shoulder pain, pain is in superiorlateral shoulder. REQUESTING PROVIDER: jasper keene PA-C PAGER: [phone] PHONE: [phone] Weight: 217.6 lb [98.70 kg] (04/21/2023 11:15) [...] patient will need to arrange for a trash collector truck driver to take him/her home after the [...] 16, 2024 Date Verified: MAR 16, 2024 Wader Boot Top Assembler E-Sig: Report: MRI UPPER EXT ANY JOINT WO CONTRAST Clinical History: 10+ year history of right shoulder pain. Pain is in superolateral shoulder. Comparison: Right shoulder radiographs 02/09/2011 Technique: The study was protocoled and supervised at the local [facility] facility. 11 series and 245 images were subsequently received by the [place] National Teleradiology Program (NTP) for interpretation. MRI [...] as above. READING PHYSICIAN: Romel Harrison M.D. -[id number] 03/15/2024 19:33 [facility] National Teleradiology Program [phone] (For Medical Practitioner Use Only) Attention Patients / Veterans: If you have questions or concerns about these test results, please contact your ordering provider or primary care team. Primary Diagnostic Code: SIGNIFICANT ABNORMALITY, ATTN NEEDED Primary Interpreting Staff: RADIOLOGY,OUTSIDE SERVICE, Staff Physician / RADIOLOGY,OUTSIDE SERVICE [facility] Encounter Notes: All associated encounter notes This section contains the clinical notes associated to the Encounter. Date/Time Encounter Note(s) Provider Source Mar 05, 2024 01:41 PM PRIMARY CARE NURSI NG NOTE: LOCAL TITLE: Amb Care Nursing Note STANDARD TITLE: PRIMARY CARE NURSING NOTE DATE OF NOTE: MAR 05, 2024@13:41 ENTRY DATE: MAR 05, 2024@13:41:37 AUTHOR: MIKAEL LEIVA EXP COSIGNER: URGENCY: STATUS: COMPLETED PRE-IRRIGATION: Ear to be irrigated: Bilateral Auditory Canal inspected: Bilateral Auricle and Meatus of canal cleaned: Bilateral Type and amount of irrigant used: EArigater Inspection of return fluid: cerumen POST-IRRIGATION Patient - tympanic membrane visible, tolerated procedure with no complaints Patient instructed to call for any pain/drainage. /fredy/ MIKAEL LEIVA DESIGN CHECKER Signed: 03/05/2024 13:42 MIKAEL LEIVA [facility]
--- OUTSIDE RECORDS SUMMARY | 2024-09-15 21:04 | XMS_ITS | Encounter Summary ---
Author Name [facility] [place] [facility] [place] Address [address] [place] [address] Care Team Providers Care Scientific Artist Name Role Phone ANG ARMANDO [facility] Provider [facility] Insurance Providers: All historical and current Section [...] SERVICE SOV RET UNDER Nov 03, 2020 [id number] MELLOLISA PATIENT ANTHEM BC[place] OF [place] POINT OF SERVICE SOV ACTIV E SELEC TCAR Oct 03, 2018 [id number] LISA SARKAR PATIENT BCBS OF [place] POINT OF SERVICE SOV RET UNDER 65 DESTINY Nov 03, 2020 [id number] MELLOLISA CASH PATIENT [employer] POINT OF SERVICE SOV ACTIV E SELEC TCAR Oct 03, 2018 [id number] LISA SARKAR PATIENT [place] POINT OF SERVICE SOV RET UNDER 65 DESTINY Oct 03, 2018 [id number] LISA SARKAR PATIENT [employer] S[employer]IPTS ([id number]) PRESCRIPT ION [facility] [place] Oct 03, 2018 [id number] [phone] LISA SARKAR PATIENT Selected Encounter This section includes the information on record at [place] for the Encounter. Date/Time Encounter Type Encounter Description Reason Pro vider Source Apr 26, 2024 12:00 AM Outpatient Encounter EVENT (HISTORICAL) IHE Encounter Template Text not used by VA Plan of Treatment: Future Appointments (+ 6 months) and Future Tests (+/- 45 days) The Plan of Treatment section includes future care activities for the patient from all [place] treatmentfacilities. This section includes future appointments and future orders which are active, pending or scheduled. Future Appointments This section includes appointments that were scheduled to occur 6 months from the date of the Encounter, up to a maximum of 20 appointments. The data comes from all [place] treatment facilities. Appointment Date/Time Appointment Type Appointme nt Facility Name May 03, 2024 08:30 AM [place] [facility] May 15, 2024 10:10 AM AM[place]ULATORY - NONE [place] [facility] Jun 05, 2024 02:00 PM AM[place] [facility] Jun 06, 2024 02:59 PM AM[place]ATORY [place]ONE [place] [facility] Jun 18, 2024 01:00 PM AMB[place] [facility] Jun 21, 2024 09:30 AM [place] [facility] Jul 17, 2024 03:00 PM AMBULATORY [place] [facility] Jul 18, 2024 11:30 AM [place] [facility] Jul 23, 2024 03:00 PM AMBULAT[place] [facility] Aug 21, 2024 11:00 AM AMBULATORY - MEDICINE [facility] Aug 21, 2024 11:15 AM AMBULATORY - MEDICINE [facility] Sep 07, 2024 12:15 PM AMBULATORY - MEDICINE [facility] Sep 17, 2024 02:00 PM AM[place] [facility] Oct 08, 2024 03:00 PM AMB[place]AT[place] [facility] Oct 16, 2024 03:00 PM AMBULAT[place] [facility] Lab Results: +/- 30 days of the encounter This section includes the Chemistry and Hematology Lab Results on record with [place] for the patient. Radiology Reports and Pathology Reports are provided separately, in subsequent sections. Lab Results This section contains the Chemistry/Hematology Results that were resulted 30 days before or 30 daysafter the date of the Encounter. Date/Time Source Result Type Result - Unit Interpretation Reference Range Comment Apr 26, 2024 10:14 AM [facility] GLYCOHEMOGLOBIN (A1C ONLY) Specimen Type: BLOOD Comment: , Tests performed on [employer] Bletran SN:[id number] (405) Values obtained from A1C measurements can vary. For typical A1C assays, a reported value of 7.0 could actually be between 6.72 and 7.28 if measured by a reference method. A reported value of 9.0 could actually be between 8.73 and 9.27. Ref: http://www.ng sp.org/CAPdat a.asp Ordering Provider: FRANCOISE TRAVIS Report Released Date/Time: Apr 18, 2024 03:01 PM Reporting [facility]: [facility] [address] [facility] [address] Performing Lab: [facility] [address] [facility] [facility] [address] HEMOGLOBIN A1C 5.2 4.0-5.6 Apr 26, 2024 10:14 AM [facility] PSA (FIELD MAP EDITOR) Specimen Type: SERUM Comment: , Tests performed on Castro [employer] Beltran SN:[id number] (405) TSH within normal limits. Reflex testing not required. Ordering Provider: FRANCOISE TRAVIS Report Released Date/Time: Apr 18, 2024 03:01 PM Reporting Lab: [facility] [address] [facility] [address] Performing Lab: [facility] [address] [facility] [facility] [address] PSA (FIELD MAP EDITOR) 1.15 ng/mL Apr 26, 2024 10:14 AM [facility] LIPOPROTEIN CHOLESTEROL FRACT. 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 Ordering Provider: FRANCOISE TRAVIS Report Released Date/Time: Apr 18, 2024 03:01 PM Reporting Lab: [facility] [address] [facility] [address] Performing Lab: [facility] [address] [facility] [facility] [address] CHOLESTEROL 167 mg/dL 0-200 TRIGLYCERIDE 238 mg/dL H 0-150 HDL CHOLESTEROL 35 mg/dL L >40 LDL CHOLESTEROL (CALC) 84 mg/dL 0-129 Apr 26, 2024 10:14 AM [facility] LIVER PROFILE Specimen Type: PLASMA Comment: , Tests performed on [employer] SN:[id number] (405). Ordering Provider: FRANCOISE TRAVIS Report Released Date/Time: Apr 18, 2024 03:01 PM Reporting Lab: [facility] [address] [facility] [facility] [address] Performing Lab: [facility] [address] [facility] [address] PROTEIN, TOTAL 7.0 g/dL 6.0-8.5 ALBUMIN 3.9 g/dL 3.2-5.0 BILIRUBIN, TOTAL 0.6 mg/dL 0.2-1.2 ALKALINE PHOSPHATASE 52 U/L 40-150 ALT(SGPT) 32 U/L 7-52 AST(SGOT) 20 U/L 5-34 FIB-4 SCORE 0.66 <2.67 Apr 26, 2024 10:14 AM [facility] CBC NO DIFF Specimen Type: BLOOD No comment entered. Ordering Provider: FRANCOISE TRAVIS Report Released Date/Time: Apr 18, 2024 03:01 PM Reporting Lab: [facility] [address] [facility] [address] Performing Lab: [facility] [address] [facility] [address] WBC 6.9 10*3/uL 4.5-11.0 RBC 5.32 10*6/uL 4.23-5.66 HGB 15.6 g/dL 12.8-17 HEMATOCRIT 45.9 39.2-50.4 MCV 86.3 fL 82-99 MCH 29.3 pg 26.2-32.6 MCHC 34.0 g/dL 30.8-35.1 PLT 285 10*3/uL 140-360 MPV 10.4 fL 9.2-12.4 RDW 12.1 12.0-16.0 Apr 26, 2024 10:14 AM [facility] P4 GLU,BUN,CREAT,LYTES,CA Specimen Type: PLASMA Comment: , Tests performed on [employer] SN:[id number] (405). Ordering Provider: FRANCOISE TRAVIS Report Released Date/Time: Apr 18, 2024 03:01 PM Reporting Lab: [facility] [address] [facility] [address] Performing Lab: [facility] [address] [facility] [address] UREA NITROGEN 17 mg/dL 7-25 SODIUM 135 mmol/L 135-145 POTASSIUM 4.3 mmol/L 3.5-5.0 CHLORIDE 101 mmol/L 100-110 CARBON DIOXIDE 28 mmol/L 20-30 ANION GAP 6 4-16 GLUCOSE 94 mg/dL 65-100 CREATININE 0.90 mg/dL 0.50-1.50 CALCIUM 9.5 mg/dL 8.5-10.5 eGFR(CKD-EPI 2020) >90 mL/min Apr 26, 2024 10:14 AM [facility] THYROID TESTING CASCADE Specimen Type: SERUM Comment: , Tests performed on Jenn Rykert SN:[id number] (405) TSH within normal limits. Reflex testing not required. Ordering Provider: FRANCOISE TRAVIS Report Released Date/Time: Apr 18, 2024 03:01 PM Reporting Lab: [facility] [address] [facility] [address] Performing Lab: [facility] [address] [facility] [address] TSH 1.13 u[IU]/mL 0.35-5.00 Apr 26, 2024 10:14 AM [facility] VIT D 25-OH(J) Specimen Type: SERUM Comment: , Tests performed on Jenn Rykert SN:[id number] (405) TSH within normal limits. Reflex testing not required. Ordering Provider: FRANCOISE TRAVIS Report Released Date/Time: Apr 18, 2024 03:01 PM Reporting Lab: [facility] [address] [facility] [address] Performing Lab: [facility] [address] [facility] [address] VIT D 25-OH(J) 36.8 ng/mL 20.0-50.0
--- OUTSIDE RECORDS SUMMARY | 2024-09-15 21:04 | XMS_ITS | Encounter Summary ---
Author Name [facility] [place] [facility] [place] Organization [facility] [place] Address [address] [place] [address] Care Team Providers Care Nurse Intern Name Role Phone ANG ARMANDO Primary Care [...] Relationship to Policy [place] ANTHEM BC[place] OF [place] POINT OF SERVICE SOV RET UNDER Nov 03, 2020 [id number] [phone] MELLOLISA PATIENT ANTHEM [employer] POINT OF SERVICE SOV ACTIV E SELEC TCAR Oct 03, 2018 [id number] VOLISA PATIENT [employer] POINT OF SERVICE SOV RET UNDER 65 DESTINY Nov 03, 2020 [id number] VOLISA PATIENT [place] POINT OF SERVICE SOV ACTIV E SELEC TCAR Oct 03, 2018 [id number] LISA VO PATIENT [employer] POINT OF SERVICE SOV RET UNDER 65 DESTINY Oct 03, 2018 [id number] LISA VO PATIENT [employer] S[employer]IP[employer] ([id number]) PRESCRIPT ION [facility] NT Oct 03, 2018 [id number] LISA VO PATIENT Selected Encounter This section includes the information on record at [place] for the Encounter. Date/Time Encounter Type Encounter Description Reason Provider Source Apr 18, 2024 08:30 AM OFFICE O/P EST MOD 30 MIN ORTHO/JOINT SURG ICD-10-CM M75.111 Incomplete rotatr-cuff tear/ruptr of r shoulder, not trauma WINNER,KERVIN PHER L IHE Encounter Template Text not used by VA Assessments - Encounter Diagnoses This section includes the primary and secondary diagnoses documented for the Encounter. Date/Time Primary/Secondary Diagnosis Diagnosis Name Provider Source Apr 18, 2024 09:29 AM PRIMARY Incomplete rotatr-cuff tear/ruptr of r shoulder, not trauma WINNER,KERVIN PHER L [facility] Plan of Treatment: Future Appointments (+ 6 months) and Future Tests (+/- 45 days) The Plan of Treatment section includes future care activities for the patient from all [place] treatmentfacilities. This section includes future appointments and future orders which are active, pending or scheduled. Future Appointments This section includes appointments that were scheduled to occur 6 months from the date of the Encounter, up to a maximum of 20 appointments. The data comes from all [place] treatment facilities. Appointment Date/Time Appointment Type Appointme nt Facility Name Apr 26, 2024 09:30 AM AMBULATORY - NONE [facility] Apr 26, 2024 10:00 AM AMBULATORY - NONE [facility] May 03, 2024 08:30 AM [place] [facility] May 15, 2024 10:10 AM [place] [facility] Jun 05, 2024 02:00 PM AMBUL[place] [facility] Jun 06, 2024 02:59 PM [place]ATORY - [place]ONE [place] [facility] Jun 18, 2024 01:00 PM AMB[place]ORY [place] [facility] Jun 21, 2024 09:30 AM AM[place] [facility] Jul 17, 2024 03:00 PM AMBUL[place] [facility] Jul 18, 2024 11:30 AM [place] [facility] Jul 23, 2024 03:00 PM [facility] Aug 21, 2024 11:00 AM AMBULATORY - MEDICINE [facility] Aug 21, 2024 11:15 AM AMBULATORY - MEDICINE [facility] Sep 07, 2024 12:15 PM AMBULATORY - MEDICINE [facility] Sep 17, 2024 02:00 PM AM[place]ULATORY [place] [facility] Oct 08, 2024 03:00 PM AMBULATORY - [place] [facility] Oct 16, 2024 03:00 PM AMBULATORY - [place] [facility] Lab Results: +/- 30 days [...] Range Comment Apr 26, 2024 10:14 AM [facility] GLYCOHEMOGLOBIN (A1C ONLY) Specimen Type: BLOOD Comment: , Tests performed on Castro 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 For typical A1C assays, a reported value of 7.0 could actually be between 6.72 and 7.28 if measured by a reference method. A reported value of 9.0 could actually be between 8.73 and 9.27. Ref: http://www.ng sp.org/CAPdat a.asp Ordering Provider: FRANCOISE TRAVIS Report Released Date/Time: Apr 18, 2024 03:01 PM Reporting Lab: [facility] [address] [facility] [address] Performing Lab: [facility] [address] [facility] [facility] [address] HEMOGLOBIN A1C 5.2 4.0-5.6 Apr 26, 2024 10:14 AM [facility] PSA (PET GROOMER) Specimen Type: SERUM Comment: , Tests performed on [employer] Beltran SN:[id number] (405) TSH within normal limits. Reflex testing not required. Ordering Provider: FRANCOISE TRAVIS Report Released Date/Time: Apr 18, 2024 03:01 PM Reporting Lab: [facility] [address] [facility] [address] Performing Lab: [facility] [address] [facility] [address] PSA (PET GROOMER) 1.15 ng/mL Apr 26, 2024 10:14 AM [facility] LIPOPROTEIN CHOLESTEROL FRACT. PANEL Specimen Type: PLASMA Comment: , Tests performed on [employer] Gerald SN:[id number] (405). Ordering Provider: FRANCOISE TRAVIS Report Released Date/Time: Apr 18, 2024 03:01 PM Reporting Lab: [facility] [address] [facility] [address] Performing Lab: [facility] [address] [facility] [address] CHOLESTEROL 167 mg/dL 0-200 TRIGLYCERIDE 238 mg/dL H 0-150 HDL CHOLESTEROL 35 mg/dL L >40 LDL CHOLESTEROL (CALC) 84 mg/dL 0-129 Apr 26, 2024 10:14 AM [facility] LIVER PROFILE Specimen Type: PLASMA Comment: , Tests performed on Castro [employer] SN:[id number] (405). Ordering Provider: FRANCOISE TRAVIS Report Released Date/Time: Apr 18, 2024 03:01 PM Reporting Lab: [facility] [address] [facility] [address] Performing Lab: [facility] [address] [facility] [address] PROTEIN, TOTAL 7.0 g/dL 6.0-8.5 ALBUMIN 3.9 g/dL 3.2-5.0 BILIRUBIN, TOTAL 0.6 mg/dL 0.2-1.2 ALKALINE PHOSPHATASE 52 U/L 40-150 ALT(SGPT) 32 U/L 7-52 AST(SGOT) 20 U/L 5-34 FIB-4 SCORE 0.66 <2.67 Apr 26, 2024 10:14 AM [facility] CBC NO DIFF Specimen Type: BLOOD No comment entered. Ordering Provider: FRANCOISE TRAVIS Report Released Date/Time: Apr 18, 2024 03:01 PM Reporting Lab: [facility] [address] [facility] [address] Performing Lab: [facility] [address] [facility] [address] WBC 6.9 10*3/uL 4.5-11.0 RBC 5.32 10*6/uL 4.23-5.66 HGB 15.6 g/dL 12.8-17 HEMATOCRIT 45.9 39.2-50.4 MCV 86.3 fL 82-99 MCH 29.3 pg 26.2-32.6 MCHC 34.0 g/dL 30.8-35.1 PLT 285 10*3/uL 140-360 MPV 10.4 fL 9.2-12.4 RDW 12.1 12.0-16.0 Apr 26, 2024 10:14 AM [facility] P4 GLU,BUN,CREAT,LYTES,CA Specimen Type: PLASMA Comment: , Tests performed on [employer] SN:[id number] (596). Ordering Provider: FRANCOISE TRAVIS Report Released Date/Time: Apr 18, 2024 03:01 PM Reporting Lab: [facility] [address] [facility] [address] Performing Lab: [facility] [address] [facility] [address] UREA NITROGEN 17 mg/dL 7-25 SODIUM 135 mmol/L 135-145 POTASSIUM 4.3 mmol/L 3.5-5.0 CHLORIDE 101 mmol/L 100-110 CARBON DIOXIDE 28 mmol/L 20-30 ANION GAP 6 4-16 GLUCOSE 94 mg/dL 65-100 CREATININE 0.90 mg/dL 0.50-1.50 CALCIUM 9.5 mg/dL 8.5-10.5 eGFR(CKD-EPI 2020) >90 mL/min Apr 26, 2024 10:14 AM [facility] THYROID TESTING CASCADE Specimen Type: SERUM Comment: , Tests performed on Castro [employer]an SN:[id number] (405) TSH within normal limits. Reflex testing not required. Ordering Provider: FRANCOISE TRAVIS Report Released Date/Time: Apr 18, 2024 03:01 PM Reporting Lab: [facility] [address] [facility] [address] Performing Lab: [facility] [address] [facility] [address] TSH 1.13 u[IU]/mL 0.35-5.00 Apr 26, 2024 10:14 AM [facility] VIT D 25-OH(WRJ) Specimen Type: SERUM Comment: , Tests performed on [employer] Beltran SN:[id number] (405) TSH within normal limits. Reflex testing not required. Ordering Provider: FRANCOISE TRAVIS Report Released Date/Time: Apr 18, 2024 03:01 PM Reporting Lab: [facility] [address] [facility] [address] Performing Lab: [facility] [address] [facility] [address] VIT D 25-OH([email or web address] 36.8 ng/mL 20.0-50.0 Social History: Smoking Status (Most current) and Tobacco Use (All prior to encounter date) This section includes the most current, and the historical, smoking and tobacco- related health factors from the [place] facility where the Encounter took place. Current Smoking Status This section includes the most current smoking, or tobacco-related health factor, from the [place] facility where the Encounter took place. Date/Time Current Smoking Status Comment Anjali ayala Apr 21, 2023 11:00 AM OR-TOBACCO NEVER USED [facility] Tobacco Use History This section includes a history of the smoking, or tobacco-related health factors, that were collected on or before the date of the Encounter. The data comes from the [place] facility where the Encounter took place. Date/Time Smoking Status/Tobacco Use Comment F acility Aug 05, 2021 09:04 AM VA-TOBACCO FORMER USER [facility] Aug 05, 2021 09:04 AM VA-TOBACCO QUIT 5 TO < 15 YRS [facility] Jul 03, 2020 08:45 AM VA-TOBACCO FORMER USER [facility] Jul 03, 2020 08:45 AM VA-TOBACCO QUIT 5 TO < 15 YRS [facility] Dec 20, 2005 03:58 PM LIFETIME NON-TOBACCO USER [facility] Encounter Notes: All associated encounter notes This section contains the clinical notes associated to the Encounter. Date/Time Encounter Note(s) Provider Source Apr 18, 2024 08:27 AM ORTHOPEDIC SURGERY OUTPATIENT NOTE: LOCAL TITLE: Orthopedics/Outpatient Progress Note STANDARD TITLE: ORTHOPEDIC SURGERY OUTPATIENT NOTE DATE OF NOTE: APR 18, 2024@08:27 ENTRY DATE: APR 18, 2024@08:27:51 AUTHOR: ROBERTO MIRELES EXP COSIGNER: URGENCY: STATUS: COMPLETED Orthopedics/Outpatient Progress Note Has ADDENDA Greater than 50% of this session was dedicated to counseling and coordination of care. Yes Time spent with patient (minutes): 40 Summary of Counseling and/or Coordination of Care: RTC for MRI review, shoulder pain Chief Complaint - RIGHT shoulder pain History of Present Illness: R shoulder pain Mr. Piter Vo is a 53 year-old R. handed [employer] who returns today for MRI review. 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 PMHX 05/10/2023 Mr. Piter Vo is a 53 year-old R. handed [employer] who presents with a 10+ year history R shoulder pain. states that his symptoms began while on [...] issues which was helped with cortisone injection. [place] states that Past Medical History: Problem List: [...] except for the above findings. Physical Examination Labs: A1c: HbA1c/HbA1c POC: Collection DT Specimen Test Name Result Units Ref Range 05/10/2023 13:47 BLOOD HGB 14.7 g/dl 12.8 - 17 Vitals: B/P PULSE WEIGHT BMI SpO2 PAIN [...] radial, ulnar and median and musculocutaneous nerves Imaging studies X-rays: R. Shoulder, Date: 02/09/2011 IMPRESSION Normal study. REPORT Right shoulder: The current study is correlated with the examination of 01/04/2006. The glenohumeral and acromioclavicular joints are within normal limits. The bones are normally mineralized and the periarticular soft tissues are unremarkable as is true of the visualized adjacent superior lateral chest wall. MRI: Date: R. Shoulder 03/09/2024 Report: MRI UPPER EXT ANY JOINT WO CONTRAST Clinical History: 10+ year history of right shoulder pain. Pain is in superolateral shoulder. Comparison: Right shoulder radiographs 02/09/2011 Technique: The study was protocol[facility] 11 series and 245 images were subsequently received by the [place] National Teleradiology Program (NTP) for interpretation. MRI [...] labrum. Note that the glenoid labrum is sub-optimally assessed on this non-arthrographic exam. 4. Mild biceps tendinosis. 5. Mild acromioclavicular joint osteoarthrosis with likely reactive subchondral edema at the distal clavicle. ASSESSMENT 1. shoulder pain with concern for Focal full-thickness tear of the insertional junctional zone fibers of the supraspinatus and infraspinatus tendons with adjacent interstitial extension into the posterior supraspinatus tendon fibers. 2. Mild tendinosis of the subscapularis without a discrete tendon tear. 3. age-related labral degeneration and tearing as detailed above with apparent paralabral cysts along the posteroinferior labrum. PLAN: We had a long discussion about a stepwise approach to the treatment of full- thickness rotator cuff tears which involves activity modification, low impact exercise, PT, oral anti-inflammatory medications, injections, but often surgery in the form of rotator cuff repair. We talked about the fact that full- thickness tears are unlikely to grow back together over time and his muscles will continue to atrophy. Once atrophy has occurred to a significant degree, the muscle is generally unable to recover its prior strength. Rotator cuff surgery requires a dedication to healing and therapy, which occur over the course of several months. Today this [place] would like to continue care with Surgical consult at [facility] in [facility], 3% diclofenac, - F/U phone call in 2 months to check on surgical consult progress - CC surgical consult placed for R. shoulder at [facility] - 3% diclofenac ordered Today we reviewed all of the recent imaging studies and the patient demonstrates understanding of their meaning. All questions were answered and the patient demonstrates excellent understanding of the instructions and endorses the plan follow-up will be as scheduled and as needed /fredy/ ROBERTO MIRELES Physician Wool Cleaner Signed: 04/18/2024 09:29 Receipt Acknowledged By: 04/19/2024 07:05 /fredy/ YFN JEREZ physician 04/19/2024 ADDENDUM STATUS: COMPLETED Patient seen independently by Roberto Mireles PA-C. Documentation reviewed. Agree with assessment and plan. /fredy/ YFN JEREZ physician Signed: 04/19/2024 07:05 [facility]LES [facility]
--- OUTSIDE RECORDS SUMMARY | 2024-09-15 21:04 | XMS_ITS | Encounter Summary ---
Author Name [facility] [facility] [place] Address [address] [place] [address] Care Team Providers Care Vision Mixer Name Role Phone ANG ARMANDO Primary Care [...] SERVICE SOV RET UNDER Nov 03, 2020 [id number] [phone] MELLOLISA SHAILESH PATIENT ANTHEM [employer] [place] POINT OF SERVICE SOV ACTIV E SELEC TCAR Oct 03, 2018 [id number] [phone] LISA SARKAR PATIENT [employer] [place] POINT OF SERVICE SOV RET UNDER 65 DESTINY Nov 03, 2020 [id number] LISA SARKAR PATIENT [employer] POINT OF SERVICE SOV ACTIV E SELEC TCAR Oct 03, 2018 [id number] LISA SARKAR PATIENT [employer] POINT OF SERVICE SOV RET UNDER 65 DESTINY Oct 03, 2018 [id number] LISA SARKAR PATIENT [employer] S[employer] ([id number]) PRESCRIPT ION [facility] NT Oct 03, 2018 [id number] LISA SARKAR PATIENT Selected Encounter This section includes the information on record at [place] for the Encounter. Date/Time Encounter Type Encounter Description Reason Pro vider Source May 01, 2024 12:37 PM Outpatient Encounter ADMIN PAT ACTIVTIES (MASNONCT) [...] 20 appointments. The data comes from all [place] treatment facilities. Appointment Date/Time Appointment Type Appointme [...] [place] [facility] Jul 17, 2024 03:00 PM AM[place]ULAT[place] [facility] Jul 18, 2024 11:30 AM [place] [facility] Jul 23, 2024 03:00 PM AM[place] [facility] Aug 21, 2024 11:00 AM AMBULATORY - MEDICINE [facility] Aug 21, 2024 11:15 AM AMBULATORY - MEDICINE [facility] Sep 07, 2024 12:15 PM AMBULATORY - MEDICINE [facility] Sep 17, 2024 02:00 PM AMBULAT[place] [facility] Oct 08, 2024 03:00 PM AMBULAT[place] [facility] Oct 16, 2024 03:00 PM AMBULATORY [place] [facility] Lab Results: +/- 30 days of the encounter This section includes the Chemistry and Hematology Lab Results on record with [place] for the patient. Radiology Reports and Pathology Reports are provided separately, in subsequent sections. Lab Results This section contains the Chemistry/Hematology Results that were resulted 30 days before or 30 daysafter the date of the Encounter. Date/Time Source Result Type Result - Unit Interpretation Reference Range Comment Apr 26, 2024 10:14 AM [facility] GLYCOHEMOGLOBIN (A1C ONLY) Specimen Type: BLOOD Comment: , Tests performed on [employer] SN:[id number] (405) Values obtained from A1C measurements can vary. For typical A1C assays, a reported value of 7.0 could actually be between 6.72 and 7.28 if measured by a reference method. A reported value of 9.0 could actually be between 8.73 and 9.27. Ref: http://www.ng sp.org/CAPdat a.asp Ordering Provider: FRANCOISE TRAVIS Report Released Date/Time: Apr 18, 2024 03:01 PM Reporting Lab: [facility] [address] [facility] [address] Performing Lab: [facility] [address] [facility] [address] HEMOGLOBIN A1C 5.2 4.0-5.6 Apr 26, 2024 10:14 AM [facility] PSA (WEB PORTAL DEVELOPER) Specimen Type: SERUM Comment: , Tests performed on [employer] SN:[id number] (405) TSH within normal limits. Reflex testing not required. Ordering Provider: FRANCOISE TRAVIS Report Released Date/Time: Apr 18, 2024 03:01 PM Reporting Lab: [facility] [address] [facility] [address] Performing Lab: [facility] [address] [facility] [address] PSA (WEB PORTAL DEVELOPER) 1.15 ng/mL Apr 26, 2024 10:14 AM [facility] LIPOPROTEIN CHOLESTEROL FRACT. PANEL Specimen Type: PLASMA Comment: , Tests performed on [employer] SN:[id number] (405). Ordering Provider: FRANCOISE TRAVIS Report Released Date/Time: Apr 18, 2024 03:01 PM Reporting Lab: [facility] [address] [facility] [address] Performing Lab: [facility] [address] [facility] [address] CHOLESTEROL 167 mg/dL 0-200 TRIGLYCERIDE 238 mg/dL H 0-150 HDL CHOLESTEROL 35 mg/dL L >40 LDL CHOLESTEROL (CALC) 84 mg/dL 0-129 Apr 26, 2024 10:14 AM [facility] LIVER PROFILE Specimen Type: PLASMA Comment: , Tests performed on [employer] SN:[id number] (405). Ordering Provider: FRANCOISE TRAVIS Report Released Date/Time: Apr 18, 2024 03:01 PM Reporting Lab: [facility] [address] [facility] [address] Performing Lab: [facility] [address] [facility] [address] PROTEIN, TOTAL 7.0 g/dL 6.0-8.5 ALBUMIN 3.9 g/dL 3.2-5.0 BILIRUBIN, TOTAL 0.6 mg/dL 0.2-1.2 ALKALINE PHOSPHATASE 52 U/L 40-150 ALT(SGPT) 32 U/L 7-52 AST(SGOT) 20 U/L 5-34 FIB-4 SCORE 0.66 <2.67 Apr 26, 2024 10:14 AM [facility] CBC NO DIFF Specimen Type: BLOOD No comment entered. Ordering Provider: FRANCOISE TRAVIS Report Released Date/Time: Apr 18, 2024 03:01 PM Reporting Lab: [facility] [address] [facility] [address] Performing Lab: [facility] [address] [facility] [address] WBC 6.9 10*3/uL 4.5-11.0 RBC 5.32 10*6/uL 4.23-5.66 HGB 15.6 g/dL 12.8-17 HEMATOCRIT 45.9 39.2-50.4 MCV 86.3 fL 82-99 MCH 29.3 pg 26.2-32.6 MCHC 34.0 g/dL 30.8-35.1 PLT 285 10*3/uL 140-360 MPV 10.4 fL 9.2-12.4 RDW 12.1 12.0-16.0 Apr 26, 2024 10:14 AM [facility] P4 GLU,BUN,CREAT,LYTES,CA Specimen Type: PLASMA Comment: , Tests performed on [employer] SN:[id number] (405). Ordering Provider: FRANCOISE TRAVIS Report Released Date/Time: Apr 18, 2024 03:01 PM Reporting Lab: [facility] [address] [facility] [address] Performing Lab: [facility] [address] [facility] [address] UREA NITROGEN 17 mg/dL 7-25 SODIUM 135 mmol/L 135-145 POTASSIUM 4.3 mmol/L 3.5-5.0 CHLORIDE 101 mmol/L 100-110 CARBON DIOXIDE 28 mmol/L 20-30 ANION GAP 6 4-16 GLUCOSE 94 mg/dL 65-100 CREATININE 0.90 mg/dL 0.50-1.50 CALCIUM 9.5 mg/dL 8.5-10.5 eGFR(CKD-EPI 2020) >90 mL/min Apr 26, 2024 10:14 AM [facility] THYROID TESTING CASCADE Specimen Type: SERUM Comment: , Tests performed on [employer] SN:[id number] (405) TSH within normal limits. Reflex testing not required. Ordering Provider: FRANCOISE TRAVIS Report Released Date/Time: Apr 18, 2024 03:01 PM Reporting Lab: [facility] [address] [facility] [address] Performing Lab: [facility] [address] [facility] [address] TSH 1.13 u[IU]/mL 0.35-5.00 Apr 26, 2024 10:14 AM [facility] VIT D 25-OH(WRJ) Specimen Type: SERUM Comment: , Tests performed on [employer] SN:[id number] (405) TSH within normal limits. Reflex testing not required. Ordering Provider: FRANCOISE TRAVIS Report Released Date/Time: Apr 18, 2024 03:01 PM Reporting Lab: [facility] [address] [facility] [address] Performing Lab: [facility] [address] [facility] [address] VIT D 25-OH(J) 36.8 ng/mL 20.0-50.0 Encounter Notes: All associated encounter notes This section contains the clinical notes associated to the Encounter. Date/Time Encounter Note(s) Provider Source May 01, 2024 12:37 PM LETTERS: LOCAL TITLE: LETTER TO PATIENT ATTEMPT TO CONTACT STANDARD TITLE: LETTERS DATE OF NOTE: MAY 01, 2024@12:37 ENTRY DATE: MAY 01, 2024@12:37:35 AUTHOR: KELIN FERGUSON EXP COSIGNER: URGENCY: STATUS: COMPLETED [facility] [address] [place] [address] MAY 01, 2024 PITER SARKAR [address] [place] [address] Dear PITER SARKAR, [facility] in [place] is trying to reach you to schedule [...] find a suitable date for you: Service: Podiatry Service Direct: [phone] Ext: [phone] Toll Free: [phone] Ext: [phone] We look forward to hearing from you. Sincerely, Clinical Operations KELIN FERGUSON [facility]
--- OUTSIDE RECORDS SUMMARY | 2024-09-15 21:04 | XMS_ITS | Encounter Summary ---
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 Name Role Phone ANG ARMANDO Primary Care [...] Relationship to Policy [place] ANTHEM [employer] [place] POINT OF SERVICE SOV RET UNDER Nov 03, 2020 [id number] MELLOLISA PATIENT ANTHEM [employer] [place] POINT OF SERVICE SOV ACTIV E SELEC TCAR Oct 03, 2018 [id number] LISA SARKAR PATIENT [employer] [place] POINT OF SERVICE SOV RET UNDER 65 DESTINY Nov 03, 2020 [id number] LISA SARKAR PATIENT [employer] [place] POINT OF SERVICE SOV ACTIV E SELEC TCAR Oct 03, 2018 [id number] LSIA SARKAR PATIENT [employer] [place] POINT OF SERVICE SOV RET UNDER 65 DESTINY Oct 03, 2018 [id number] LISA SARKAR PATIENT [employer] ([id number]) PRESCRIPT ION [facility] Oct 03, 2018 [id number] LISA SARKAR PATIENT Selected Encounter This section includes the information on record at [place] for the Encounter. Date/Time Encounter Type Encounter Description Reason Provider Source February 02, 2024 02:05 PM FIT SPECTACLES MONOFOCAL ADMIN PAT ACTIVTIES (MASNONCT) ICD-10-CM Z46.0 Encounter for fit/adjst of spectacles and contact lenses LOLLY MAGAÑA [facility] Encounter Template Text not used by [facility] Assessments - Encounter Diagnoses This section includes the primary and secondary diagnoses documented for the Encounter. Date/Time Primary/Secondary Diagnosis Diagnosis Name Provider Source February 02, 2024 03:15 PM PRIMARY Encounter for fit/adjst of spectacles and contact lenses LOLLY MAGAÑA [facility] Plan of Treatment: Future Appointments (+ 6 months) and Future Tests (+/- 45 days) The Plan of Treatment section includes future care activities for the patient from all [place] treatmentfacilities. This section includes future appointments and future orders which are active, pending or scheduled. Future Appointments This section includes appointments that were scheduled to occur 6 months from the date of the Encounter, up to a maximum of 20 appointments. The data comes from all [place] treatment facilities. Appointment Date/Time Appointment Type Appointme nt Facility Name Mar 05, 2024 01:30 PM AMBULATORY - MEDICINE [facility] Mar 09, 2024 05:30 PM AM[facility]UL[facility]ORY - NONE [place] [facility] Apr 11, 2024 08:30 AM [facility]ORY - [place] [facility] Apr 18, 2024 08:30 AM [facility] [place] [facility] Apr 26, 2024 09:30 AM AM[facility]ULATORY - NONE [facility] Apr 26, 2024 10:00 AM AMBULATORY - NONE [facility] May 03, 2024 08:30 AM AMBULATORY - [place] [facility] May 15, 2024 10:10 AM [facility] [facility] Jun 05, 2024 02:00 PM [facility] [place] [facility] Jun 06, 2024 02:59 PM [facility] - [facility] [facility] [facility] Jun 18, 2024 01:00 PM [place] [place] [facility] Jun 21, 2024 09:30 AM AM[facility] [place] [facility] Jul 17, 2024 03:00 PM [facility] [place] [facility] Jul 18, 2024 11:30 AM [facility] [place] [facility] Jul 23, 2024 03:00 PM AMBUL[facility] [place] [facility] Encounter Notes: All associated encounter notes This section contains the clinical notes associated to the Encounter. Date/Time Encounter Note(s) Provider Source February 24, 2024 07:56 AM ADDENDUM: LOCAL TITLE: Addendum STANDARD TITLE: ADDENDUM DATE OF NOTE: FEBRUARY 24, 2024@07:56:13 ENTRY DATE: FEBRUARY 24, 2024@07:56:14 AUTHOR: GEN FARLEY EXP COSIGNER: URGENCY: STATUS: COMPLETED Patient called today and said he got his glasses but he did not want his NVO par he wanted his distance pair DVO. He will be mailing back the NVO pair so we can get his DVO pair sent to him instead. /es/ GEN FARLEY MSA Signed: 02/24/2024 07:57 Receipt Acknowledged By: 03/02/2024 12:13 /es/ LOLLY RIDER 02/27/2024 22:13 /es/ KAVITHA BRICENO, OD CHIEF, OPTOMETRY --- Original Document --- 02/02/24 Has Admin Note: Reason for call Clinic Name:[facility] Pt called and is requesting a replacement pair of glasses. Pt states they are broken and not repairable. [phone] /es/ ENRIQUE ANGLIN Signed: 02/02/2024 14:06 Receipt Acknowledged By: 02/02/2024 15:16 /es/ LOLLY MAGAÑA [facility] 02/02/2024 ADDENDUM STATUS: COMPLETED NEW FIT Monofocal was fit with new NVO monofocal eyeglasses ([id number]), which will be mailed to the 's home in approximately three weeks, replacement for 03/2022 pair broken beyond repair - RX good until 03/2024 date!!! was informed that he or she may return to the clinic by appointment for fittings, repairs, and adjustments as needed. The quote provided below is for informational purposes only. Please verify prior to the creation of a purchase order. PITER SARKAR 7718 RX INFORMATION OD +2.50 0.00 X Add:0.00 Pzm:0.00 Dir: Prz2:0.00 Dir2: OS +2.75 0.00 X Add:0.00 Pzm:0.00 Dir: Prz2:0.00 Dir2: FITTING INFORMATION FPD:63 NPD:60 [place]:R: L: SEG HT:R: L: Tint:None Shade:None [place] Billable Items FRAME: FX30 [facility] 54-18-140 Right Lens: TRIVEX SINGLE VISION TRIVEX Left Lens: TRIVEX SINGLE VISION TRIVEX KLEAR ANTI-REFLECTIVE COATING Glasses fit by:Lolly Magaña /fredy/ LOLLY RIDER Signed: 02/02/2024 15:16 Receipt Acknowledged By: 02/02/2024 18:30 /es/ KAVITHA BRICENO, OD CHIEF, OPTOMETRY 03/02/2024 ADDENDUM STATUS: UNSIGNED You may not VIEW this UNSIGNED Addendum. GEN FARLEY [facility] February 02, 2024 03:11 PM ADDENDUM: LOCAL TITLE: Addendum STANDARD TITLE: ADDENDUM DATE OF NOTE: FEBRUARY 02, 2024@15:11:53 ENTRY DATE: FEBRUARY 02, 2024@15:11:54 AUTHOR: LOLLY MAGAÑA EXP COSIGNER: URGENCY: STATUS: COMPLETED NEW FIT Monofocal was fit with new NVO monofocal eyeglasses ([id number]), which will be mailed to the 's home in approximately three weeks, replacement for 03/2022 pair broken beyond repair - RX good until 03/2024 date!!! was informed that he or she may return to the clinic by appointment for fittings, repairs, and adjustments as needed. The quote provided below is for informational purposes only. Please verify prior to the creation of a purchase order. PITER SARKAR 7718 RX INFORMATION OD +2.50 0.00 X Add:0.00 Pzm:0.00 Dir: Prz2:0.00 Dir2: OS +2.75 0.00 X Add:0.00 Pzm:0.00 Dir: Prz2:0.00 Dir2: FITTING INFORMATION FPD:63 NPD:60 [place]:R: L: SEG HT:R: L: Tint:None Shade:None [place] Billable Items FRAME: FX30 [employer] 54-18-140 Right Lens: TRIVEX SINGLE VISION TRIVEX Left Lens: TRIVEX SINGLE VISION TRIVEX KLEAR ANTI-REFLECTIVE COATING Glasses fit by:Lolly Magaña /fredy/ LOLLY MAGAÑA [facility] Signed: 02/02/2024 15:16 Receipt Acknowledged By: 02/02/2024 18:30 /fredy/ KAVITHA BRICENO, OD CHIEF, OPTOMETRY --- Original Document --- 02/02/24 Has Admin Note: Reason for call Clinic Name:[facility] Pt called and is requesting a replacement pair of glasses. Pt states they are broken and not repairable. [phone] /es/ ENRIQUE ANGLIN Signed: 02/02/2024 14:06 Receipt Acknowledged By: 02/02/2024 15:16 /es/ LOLLY MAGAÑA [facility] February 02, 2024 02:05 PM ADMINISTRATIVE NOT E: LOCAL TITLE: Has Admin Note STANDARD TITLE: ADMINISTRATIVE NOTE DATE OF NOTE: FEBRUARY 02, 2024@14:05 ENTRY DATE: FEBRUARY 02, 2024@14:05:06 AUTHOR: NERIQUE URIAS EXP COSIGNER: URGENCY: STATUS: COMPLETED Has Admin Note Has ADDENDA Reason for call Clinic Name:[facility] Pt called and is requesting a replacement pair of glasses. Pt states they are broken and not repairable. [phone] /fredy/ ENRIQUE UIRAS AMSA Signed: 02/02/2024 14:06 Receipt Acknowledged By: 02/02/2024 15:16 /fredy/ LOLLY RIDER 02/02/2024 ADDENDUM STATUS: COMPLETED NEW FIT Monofocal was fit with new NVO monofocal eyeglasses ([id number]), which will be mailed to the 's home in approximately three weeks, replacement for 03/2022 pair broken beyond repair - RX good until 03/2024 date!!! was informed that he or she may return to the clinic by appointment for fittings, repairs, and adjustments as needed. The quote provided below is for informational purposes only. Please verify prior to the creation of a purchase order. PITER SARKAR 7718 RX INFORMATION OD +2.50 0.00 X Add:0.00 Pzm:0.00 Dir: Prz2:0.00 Dir2: OS +2.75 0.00 X Add:0.00 Pzm:0.00 Dir: Prz2:0.00 Dir2: FITTING INFORMATION FPD:63 NPD:60 [place]:R: L: SEG HT:R: L: Tint:None Shade:None [place] Billable Items FRAME: FX30 [employer] 54-18-140 Right Lens: TRIVEX SINGLE VISION TRIVEX Left Lens: TRIVEX SINGLE VISION TRIVEX KLEAR ANTI-REFLECTIVE COATING Glasses fit by:Lolly Magaña /fredy/ LOLLY RIDER Signed: 02/02/2024 15:16 Receipt Acknowledged By: 02/02/2024 18:30 /es/ KAVITHA BRICENO, OD CHIEF, OPTOMETRY 02/24/2024 ADDENDUM STATUS: COMPLETED Patient called today and said he got his glasses but he did not want his NVO par he wanted his distance pair DVO. He will be mailing back the NVO pair so we can get his DVO pair sent to him instead. /es/ GEN FARLEY MSA Signed: 02/24/2024 07:57 Receipt Acknowledged By: 03/02/2024 12:13 /es/ LOLLY RIDER 02/27/2024 22:13 /es/ KAVITHA BRICENO OD CHIEF, OPTOMETRY 03/02/2024 ADDENDUM STATUS: COMPLETED WRONG ORDER NUMBER REFERENCED BY REQUESTER...WILL ORDER CORRECT PAIR WHEN THE UNWANTED NVO IS RECEIVED. /fredy/ LOLLY RIDER Signed: 03/02/2024 12:14 ENRIQUE URIAS [facility]
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
--- OUTSIDE RECORDS SUMMARY | 2024-09-15 21:04 | XMS_ITS | Encounter Summary ---
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 Name Role Phone ANG ARMANDO Primary [...] SERVICE SOV RET UNDER Nov 03, 2020 [id number] [phone] MELLOLISA SHAILESH PATIENT ANTHEM [employer] [place] POINT OF SERVICE SOV ACTIV E SELEC TCAR Oct 03, 2018 [id number] [phone] LISA SARKAR PATIENT [place] POINT OF SERVICE SOV RET UNDER 65 DESTINY Nov 03, 2020 [id number] LISA SARKAR PATIENT [employer] POINT OF SERVICE SOV ACTIV E SELEC TCAR Oct 03, 2018 [id number] LISA SARKAR PATIENT [employer] POINT OF SERVICE SOV RET UNDER 65 DESTINY Oct 03, 2018 [id number] LISA SARKAR PATIENT [employer] S[employer]IPTS ([id number]) PRESCRIPT ION [facility] NT Oct 03, 2018 [id number] LISA SARKAR PATIENT Selected Encounter This section includes the information on record at [place] for the Encounter. Date/Time Encounter Type Encounter Description Reason Pro vider Source May 17, 2024 02:34 PM Outpatient Encounter ADMIN PAT ACTIVTIES (MASNONCT) [...] 20 appointments. The data comes from all [place] treatment facilities. Appointment Date/Time Appointment Type Appointme nt Facility Name Jun 05, 2024 02:00 PM AM[place]UL[place] [facility] Jun 06, 2024 02:59 PM [place] [facility] Jun 18, 2024 01:00 PM [place] [facility] Jun 21, 2024 09:30 AM [facility] [facility] Jul 17, 2024 03:00 PM AM[place] [facility] Jul 18, 2024 11:30 AM [place] [facility] Jul 23, 2024 03:00 PM AMBULAT[facility] [place] [facility] Aug 21, 2024 11:00 AM AMBULATORY - MEDICINE [facility] Aug 21, 2024 11:15 AM AMBULATORY - MEDICINE [facility] Sep 07, 2024 12:15 PM AMBULATORY - MEDICINE [facility] Sep 17, 2024 02:00 PM AM[place] [facility] Oct 08, 2024 03:00 PM AMBULAT[place] - [place] [facility] Oct 16, 2024 03:00 PM AMBULATORY - [place] [facility] Lab Results: +/- 30 days of [...] Range Comment Apr 26, 2024 10:14 AM [facility] GLYCOHEMOGLOBIN (A1C ONLY) Specimen Type: BLOOD Comment: , Tests performed on [email or web address] SN:[id number] (405) Values obtained from A1C measurements can vary. For typical A1C assays, a reported value of 7.0 could actually be between 6.72 and 7.28 if measured by a reference method. A reported value of 9.0 could actually be between 8.73 and 9.27. Ref: http://www.ng sp.org/CAPdat a.asp Ordering Provider: FRANCOISE TRAVIS Report Released Date/Time: Apr 18, 2024 03:01 PM Reporting Lab: [facility] [address] [facility] [address] Performing Lab: [facility] [address] [facility] [address] HEMOGLOBIN A1C 5.2 4.0-5.6 Apr 26, 2024 10:14 AM [facility] PSA (HORTICULTURAL NURSERY ASSISTANT) Specimen Type: SERUM Comment: , Tests performed on [employer] Beltran SN:[id number] (405) TSH within normal limits. Reflex testing not required. Ordering Provider: FRANCOISE TRAVIS Report Released Date/Time: Apr 18, 2024 03:01 PM Reporting Lab: [facility] [address] [facility] [address] Performing Lab: [facility] [address] [facility] [address] PSA (HORTICULTURAL NURSERY ASSISTANT) 1.15 ng/mL Apr 26, 2024 10:14 AM [facility] LIPOPROTEIN CHOLESTEROL FRACT. PANEL Specimen Type: PLASMA Comment: , Tests performed on [employer] SN:[id number] (405). Ordering Provider: FRANCOISE TRAVIS Report Released Date/Time: Apr 18, 2024 03:01 PM Reporting Lab: [facility] [address] [facility] [address] Performing Lab: [facility] [address] [facility] [address] CHOLESTEROL 167 mg/dL 0-200 TRIGLYCERIDE 238 mg/dL H 0-150 HDL CHOLESTEROL 35 mg/dL L >40 LDL CHOLESTEROL (CALC) 84 mg/dL 0-129 Apr 26, 2024 10:14 AM [facility] LIVER PROFILE Specimen Type: PLASMA Comment: , Tests performed on [employer] SN:[id number] (405). Ordering Provider: FRANCOISE TRAVIS Report Released Date/Time: Apr 18, 2024 03:01 PM Reporting Lab: [facility] [address] [facility] [address] Performing Lab: [facility] [address] [facility] [address] PROTEIN, TOTAL 7.0 g/dL 6.0-8.5 ALBUMIN 3.9 g/dL 3.2-5.0 BILIRUBIN, TOTAL 0.6 mg/dL 0.2-1.2 ALKALINE PHOSPHATASE 52 U/L 40-150 ALT(SGPT) 32 U/L 7-52 AST(SGOT) 20 U/L 5-34 FIB-4 SCORE 0.66 <2.67 Apr 26, 2024 10:14 AM [facility] THYROID TESTING CASCADE Specimen Type: SERUM Comment: , Tests performed on [email or web address] SN:[id number] (405) TSH within normal limits. Reflex testing not required. Ordering Provider: FRANCOISE TRAVIS Report Released Date/Time: Apr 18, 2024 03:01 PM Reporting Lab: [facility] [address] [facility] [address] Performing Lab: [facility] [address] [facility] [address] TSH 1.13 u[IU]/mL 0.35-5.00 Apr 26, 2024 10:14 AM [facility] P4 GLU,BUN,CREAT,LYTES,CA Specimen Type: PLASMA Comment: , Tests performed on [employer] SN:[id number] (405). Ordering Provider: FRANCOISE TRAVIS Report Released Date/Time: Apr 18, 2024 03:01 PM Reporting Lab: [facility] [address] [facility] [address] Performing Lab: [facility] [address] [facility] [address] UREA NITROGEN 17 mg/dL 7-25 SODIUM 135 mmol/L 135-145 POTASSIUM 4.3 mmol/L 3.5-5.0 CHLORIDE 101 mmol/L 100-110 CARBON DIOXIDE 28 mmol/L 20-30 ANION GAP 6 4-16 GLUCOSE 94 mg/dL 65-100 CREATININE 0.90 mg/dL 0.50-1.50 CALCIUM 9.5 mg/dL 8.5-10.5 eGFR(CKD-EPI 2020) >90 mL/min Apr 26, 2024 10:14 AM [facility] CBC NO DIFF Specimen Type: BLOOD No comment entered. Ordering Provider: FRANCOISE TRAVIS Report Released Date/Time: Apr 18, 2024 03:01 PM Reporting Lab: [facility] [address] [facility] [address] Performing Lab: [facility] [address] [facility] [address] WBC 6.9 10*3/uL 4.5-11.0 RBC 5.32 10*6/uL 4.23-5.66 HGB 15.6 g/dL 12.8-17 HEMATOCRIT 45.9 39.2-50.4 MCV 86.3 fL 82-99 MCH 29.3 pg 26.2-32.6 MCHC 34.0 g/dL 30.8-35.1 PLT 285 10*3/uL 140-360 MPV 10.4 fL 9.2-12.4 RDW 12.1 12.0-16.0 Apr 26, 2024 10:14 AM [facility] VIT D 25-OH([facility]) Specimen Type: SERUM Comment: , Tests performed on [employer] Beltran SN:[id number] (405) TSH within normal limits. Reflex testing not required. Ordering Provider: FRANCOISE TRAVIS Report Released Date/Time: Apr 18, 2024 03:01 PM Reporting Lab: [facility] [address] [facility] [address] Performing Lab: [facility] [address] [facility] [address] VIT D 25-OH([facility]) 36.8 ng/mL 20.0-50.0 Encounter Notes: All associated encounter notes This section contains the clinical notes associated to the Encounter. Date/Time Encounter Note(s) Provider Source May 17, 2024 02:38 PM LETTERS: LOCAL TITLE: LETTER TO PATIENT ATTEMPT TO CONTACT STANDARD TITLE: LETTERS DATE OF NOTE: MAY 17, 2024@14:38 ENTRY DATE: MAY 17, 2024@14:38:33 AUTHOR: MARKUS FRAGOSO EXP COSIGNER: URGENCY: STATUS: COMPLETED [facility] [address] [place] [address] MAY 17, 20[address]AR [address] [place] [address] Dear PITER SARKAR, [facility] [place] is trying to reach you to schedule [...] find a suitable date for you: Service: Orthopedic Service Direct: [phone] Ext: [phone] Toll Free: [phone] Ext: [phone] We look forward to hearing from you. Sincerely, Clinical Operations MARKUS FRAGOSO [facility] May 17, 2024 02:34 PM ADMINISTRATIVE NOT E: LOCAL TITLE: Has Admin Note STANDARD TITLE: ADMINISTRATIVE NOTE DATE OF NOTE: MAY 17, 2024@14:34 ENTRY DATE: MAY 17, 2024@14:35:03 AUTHOR: MARKUS FRAGOSO EXP COSIGNER: URGENCY: STATUS: COMPLETED Has Admin Note Has ADDENDA Clinic Name:[facility] [place] PHONE ORTHO RICK NORIEGA left for return call to ex #[phone] to schedule sent contact letter /fredy/ MARKUS FRAGOSO data transcriber Signed: 05/17/2024 14:38 06/15/2024 ADDENDUM STATUS: COMPLETED dispositioned for failed MSE /es/ JAIME ZAMARRIPA Signed: 06/15/2024 14:06 MARKUS FRAGOSO [facility]
--- OUTSIDE RECORDS SUMMARY | 2024-09-15 21:04 | XMS_ITS | Encounter Summary ---
Author Name [facility] [place] [facility] [place] [facility] [place] Address [address] [place] [address] Care Team Providers Care Marine Pipefitter Helper Name Role Phone ANG ARMANDO Primary Care [...] Relationship to Policy [place] ANTHEM [employer] [place] POINT OF SERVICE SOV RET UNDER Nov 03, 2020 [id number] [phone] MELLOLISA SHAILESH PATIENT ANTHEM [employer] [place] POINT OF SERVICE SOV ACTIV E SELEC TCAR Oct 03, 2018 [id number] [phone] LISA SARKAR PATIENT [employer] [place] POINT OF SERVICE SOV RET UNDER 65 DESTINY Nov 03, 2020 [id number] LISA SARKAR PATIENT [employer] [place] POINT OF SERVICE SOV ACTIV E SELEC TCAR Oct 03, 2018 [id number] LISA SARKAR PATIENT [employer] [place] POINT OF SERVICE SOV RET UNDER 65 DESTINY Oct 03, 2018 [id number] LISA SARKAR PATIENT [employer] ([id number]) PRESCRIPT ION [facility] NT Oct 03, 2018 [id number] LISA SARKAR PATIENT Selected Encounter This section includes the information on record at [place] for the Encounter. Date/Time Encounter Type Encounter Description Reason Pro vider Source Apr 10, 2024 04:03 PM Outpatient Encounter ADMIN PAT ACTIVTIES (MASNONCT) [...] Appointment Type Appointme nt Facility Name Apr 11, 2024 08:30 AM [place] [facility] Apr 18, 2024 08:30 AM [place] [facility] Apr 26, 2024 09:30 AM AMBULATORY - NONE [facility] Apr 26, 2024 10:00 AM [place] [facility] Jun 06, 2024 02:59 PM [place] [facility] Jun 18, 2024 01:00 PM [place] [facility] Jun 21, 2024 09:30 AM AM[place] [facility] Jul 17, 2024 03:00 PM AMBULAT[place] [facility] Jul 18, 2024 11:30 AM AMBULATORY - SURGERY [facility] Jul 23, 2024 03:00 PM AMBULATORY - REHAB MEDICIN E [facility] Aug 21, 2024 11:00 AM AMBULATORY - MEDICINE [facility] Aug 21, 2024 11:15 AM AMBULATORY - MEDICINE [facility] Sep 07, 2024 12:15 PM AMBULATORY - MEDICINE [facility] Sep 17, 2024 02:00 PM AMBULATORY - REHAB MEDICIN E [facility] Oct 08, 2024 03:00 PM AMBULATORY - REHAB MEDICIN E [facility] Lab Results: +/- 30 days of the encounter This section includes the Chemistry and Hematology Lab Results on record with OR for the patient. Radiology Reports and Pathology [...] Type: BLOOD Comment: , Tests performed on [employer] SN:[id number] (405) Values obtained from A1C measurements can vary. For typical A1C assays, a reported value of 7.0 could actually be between 6.72 and 7.28 if measured by a reference method. A reported value of 9.0 could actually be between 8.73 and 9.27. Ref: http://www.ng sp.org/CAPdat a.asp Ordering Provider: FRANCOISE TRAVIS Report Released Date/Time: Apr 18, 2024 03:01 PM Reporting Lab: [facility] [address] [facility] [address] Performing Lab: [facility] [address] [facility] [address] HEMOGLOBIN A1C 5.2 4.0-5.6 Apr 26, 2024 10:14 AM [facility] PSA (STAINED GLASS GLAZIER) Specimen Type: SERUM Comment: , Tests performed on [employer] Beltran SN:[id number] (405) TSH within normal limits. Reflex testing not required. Ordering Provider: FRANCOISE TRAVIS Report Released Date/Time: Apr 18, 2024 03:01 PM Reporting Lab: [facility] [address] [facility] [address] Performing Lab: [facility] [address] [facility] [address] PSA (STAINED GLASS GLAZIER) 1.15 ng/mL Apr 26, 2024 10:14 AM [facility] LIPOPROTEIN CHOLESTEROL FRACT. PANEL Specimen Type: PLASMA Comment: , Tests performed on [employer] Gerald SN:[id number] (405). Ordering Provider: FRANCOISE TRAVIS Report Released Date/Time: Apr 18, 2024 03:01 PM Reporting Lab: [facility] [address] [facility] [address] Performing Lab: [facility] [address] [facility] [address] CHOLESTEROL 167 mg/dL 0-200 TRIGLYCERIDE 238 mg/dL H 0-150 HDL CHOLESTEROL 35 mg/dL L >40 LDL CHOLESTEROL (CALC) 84 mg/dL 0-129 Apr 26, 2024 10:14 AM [facility] LIVER PROFILE Specimen Type: PLASMA Comment: , Tests performed on [employer] SN:[id number] (405). Ordering Provider: FRANCOISE TRAVIS Report Released Date/Time: Apr 18, 2024 03:01 PM Reporting Lab: [facility] [address] [facility] [address] Performing Lab: [facility] [address] [facility] [address] PROTEIN, TOTAL 7.0 g/dL 6.0-8.5 ALBUMIN 3.9 g/dL 3.2-5.0 BILIRUBIN, TOTAL 0.6 mg/dL 0.2-1.2 ALKALINE PHOSPHATASE 52 U/L 40-150 ALT(SGPT) 32 U/L 7-52 AST(SGOT) 20 U/L 5-34 FIB-4 SCORE 0.66 <2.67 Apr 26, 2024 10:14 AM [facility] CBC NO DIFF Specimen Type: BLOOD No comment entered. Ordering Provider: FRANCOISE TRAVIS Report Released Date/Time: Apr 18, 2024 03:01 PM Reporting Lab: [facility] [address] [facility] [address] Performing Lab: [facility] [address] [facility] [address] WBC 6.9 10*3/uL 4.5-11.0 RBC 5.32 10*6/uL 4.23-5.66 HGB 15.6 g/dL 12.8-17 HEMATOCRIT 45.9 39.2-50.4 MCV 86.3 fL 82-99 MCH 29.3 pg 26.2-32.6 MCHC 34.0 g/dL 30.8-35.1 PLT 285 10*3/uL 140-360 MPV 10.4 fL 9.2-12.4 RDW 12.1 12.0-16.0 Apr 26, 2024 10:14 AM [facility] P4 GLU,BUN,CREAT,LYTES,CA Specimen Type: PLASMA Comment: , Tests performed on [employer] SN:[id number] (405). Ordering Provider: FRANCOISE TRAVIS Report Released Date/Time: Apr 18, 2024 03:01 PM Reporting Lab: [facility] [address] [facility] [address] Performing Lab: [address] [address] UREA NITROGEN 17 mg/dL 7-25 SODIUM 135 mmol/L 135-145 POTASSIUM 4.3 mmol/L 3.5-5.0 CHLORIDE 101 mmol/L 100-110 CARBON DIOXIDE 28 mmol/L 20-30 ANION GAP 6 4-16 GLUCOSE 94 mg/dL 65-100 CREATININE 0.90 mg/dL 0.50-1.50 CALCIUM 9.5 mg/dL 8.5-10.5 eGFR(CKD-EPI 2020) >90 mL/min Apr 26, 2024 10:14 AM [facility] THYROID TESTING CASCADE Specimen Type: SERUM Comment: , Tests performed on [employer] SN:[id number] (405) TSH within normal limits. Reflex testing not required. Ordering Provider: FRANCOISE TRAVIS Report Released Date/Time: Apr 18, 2024 03:01 PM Reporting Lab: [facility] [address] [facility] [address] Performing Lab: [facility] [address] [facility] [address] TSH 1.13 u[IU]/mL 0.35-5.00 Apr 26, 2024 10:14 AM [facility] VIT D 25-OH([facility]) Specimen Type: SERUM Comment: , Tests performed on [employer] Beltran SN:[id number] (405) TSH within normal limits. Reflex testing not required. Ordering Provider: FRANCOISE TRAVIS Report Released Date/Time: Apr 18, 2024 03:01 PM Reporting Lab: [facility] [address] [facility] [address] Performing Lab: [facility] [address] [facility] [address] VIT D 25-OH([facility]) 36.8 ng/mL 20.0-50.0 Encounter Notes: All associated encounter notes This section contains the clinical notes associated to the Encounter. Date/Time Encounter Note(s) Provider Source Apr 10, 2024 04:03 PM ADMINISTRATIVE NOT E: LOCAL TITLE: CCC: SCHEDULING ADMINISTRATION STANDARD TITLE: ADMINISTRATIVE NOTE DATE OF NOTE: APR 10, 2024@16:03:38 ENTRY DATE: APR 10, 2024@16:03:38 AUTHOR: Lasha SCHULZ COSIGNER: URGENCY: STATUS: COMPLETED CCC: SCHEDULING ADMINISTRATION Has ADDENDA Patient Demographics Patient Name: PITER SARKAR Patient Primary Phone: [phone] Patient Primary [address]: [address] [place] [id number] Patient : 1970 Patient Age: 53 Caller/Recipient Relation to Patient: Self Administrative Administrative Note Reason: Medication Renewal OR Medications Refill/Renewal Request: Rx # - Medication Name - Dosage - SIG - Number of Refills - Facility - Status [id number] - ATORVASTATIN CALCIUM 20MG TAB - 1 TABLET - TAKE ONE TABLET BY MOUTH EVERY EVENING - 0 - [facility] - [facility] - Administrative Note Comments: Please renew and mail. /fredy/ SHAHRAM Carlisle CCC AMSA Signed: 04/10/2024 16:03 Receipt Acknowledged By: 04/10/2024 16:06 /fredy/ MACKENZIE BEASLEY Registered Nurse 04/11/2024 08:24 /fredy/ FRANCOISE TRAVIS APRN 04/10/2024 ADDENDUM STATUS: COMPLETED . /fredy/ MACKENZIE BEASLEY Registered Nurse Signed: 04/10/2024 16:06 [facility]
--- OUTSIDE RECORDS SUMMARY | 2024-09-15 21:04 | XMS_ITS | Encounter Summary ---
Author Name [facility] [place] Address [address] [place] [address] Care Team Providers Care Technical Maintenance Specialist Name Role Phone ANG ARMANDO Primary [...] SERVICE SOV RET UNDER Nov 03, 2020 [id number] [phone] MELLOLISA SHAILESH PATIENT ANTHEM [employer] [place] POINT OF SERVICE SOV ACTIV E SELEC TCAR Oct 03, 2018 [id number] LISA SARKAR PATIENT [employer] [place] POINT OF SERVICE SOV RET UNDER 65 DESTINY Nov 03, 2020 [id number] LISA SARKAR PATIENT [employer] [place] POINT OF SERVICE SOV ACTIV E SELEC TCAR Oct 03, 2018 [id number] LISA SARKAR PATIENT [employer] [place] POINT OF SERVICE SOV RET UNDER 65 DESTINY Oct 03, 2018 [id number] LISA SARKAR PATIENT [employer] ([id number]) PRESCRIPT ION [facility] NT Oct 03, 2018 [id number] LISA SARKAR PATIENT Selected Encounter This section includes the information on record at [place] for the Encounter. Date/Time Encounter Type Encounter Description Reason Pro vider Source May 21, 2024 12:42 PM Outpatient Encounter ADMIN PAT ACTIVTIES (MASNONCT) [...] 20 appointments. The data comes from all [place] treatment facilities. Appointment Date/Time Appointment Type Appointme nt Facility Name Jun 05, 2024 02:00 PM AMB[place] [facility] Jun 06, 2024 02:59 PM AM[place]ULATORY - NONE [place] [facility] Jun 18, 2024 01:00 PM AM[place]ORY [place] [facility] Jun 21, 2024 09:30 AM AMBUL[place] [facility] Jul 17, 2024 03:00 PM AMBUL[place]ORY [place] [facility] Jul 18, 2024 11:30 AM [place] [facility] Jul 23, 2024 03:00 PM AMBULATORY - [place] [facility] Aug 21, 2024 11:00 AM AMBULATORY - MEDICINE [facility] Aug 21, 2024 11:15 AM AMBULATORY - MEDICINE [facility] Sep 07, 2024 12:15 PM AMBULATORY - MEDICINE [facility] Sep 17, 2024 02:00 PM AMB[place] [facility] Oct 08, 2024 03:00 PM AMBULATORY - [place] [facility] Oct 16, 2024 03:00 PM AMBULATORY - [place]IN [place] [facility] Lab Results: +/- 30 [...] Type: BLOOD Comment: , Tests performed on [employer] SN:[id number] (405) Values obtained from A1C measurements can vary. For typical A1C assays, a reported value of 7.0 could actually be between 6.72 and 7.28 if measured by a reference method. A reported value of 9.0 could actually be between 8.73 and 9.27. Ref: http://www.ng sp.org/CAPdat a.asp Ordering Provider: FRANCOISE TRAVIS Report Released Date/Time: Apr 18, 2024 03:01 PM Reporting Lab: [facility] [address] [facility] [address] Performing Lab: [facility] [address] [facility] [address] HEMOGLOBIN A1C 5.2 4.0-5.6 Apr 26, 2024 10:14 AM [facility] PSA (COMPACTOR DRIVER) Specimen Type: SERUM Comment: , Tests performed on [employer] Beltran SN:[id number] (405) TSH within normal limits. Reflex testing not required. Ordering Provider: FRANCOISE TRAVIS Report Released Date/Time: Apr 18, 2024 03:01 PM Reporting Lab: [facility] [address] [facility] [address] Performing Lab: [facility] [address] [facility] [address] PSA (COMPACTOR DRIVER) 1.15 ng/mL Apr 26, 2024 10:14 AM [facility] LIPOPROTEIN CHOLESTEROL FRACT. PANEL Specimen Type: PLASMA Comment: , Tests performed on [employer] SN:[id number] (405). Ordering Provider: FRANCOISE TRAVIS Report Released Date/Time: Apr 18, 2024 03:01 PM Reporting Lab: [facility] [address] [facility] [address] Performing Lab: [facility] [address] [facility] [address] CHOLESTEROL 167 mg/dL 0-200 TRIGLYCERIDE 238 mg/dL H 0-150 HDL CHOLESTEROL 35 mg/dL L >40 LDL CHOLESTEROL (CALC) 84 mg/dL 0-129 Apr 26, 2024 10:14 AM [facility] LIVER PROFILE Specimen Type: PLASMA Comment: , Tests performed on [employer] SN:[id number] (405). Ordering Provider: FRANCOISE TRAVIS Report Released Date/Time: Apr 18, 2024 03:01 PM Reporting Lab: [facility] [address] [facility] [address] Performing Lab: [facility] [address] [facility] [address] PROTEIN, TOTAL 7.0 g/dL 6.0-8.5 ALBUMIN 3.9 g/dL 3.2-5.0 BILIRUBIN, TOTAL 0.6 mg/dL 0.2-1.2 ALKALINE PHOSPHATASE 52 U/L 40-150 ALT(SGPT) 32 U/L 7-52 AST(SGOT) 20 U/L 5-34 FIB-4 SCORE 0.66 <2.67 Apr 26, 2024 10:14 AM [facility] THYROID TESTING CASCADE Specimen Type: SERUM Comment: , Tests performed on [employer] SN:[id number] (405) TSH within normal limits. Reflex testing not required. Ordering Provider: FRANCOISE TRAVIS Report Released Date/Time: Apr 18, 2024 03:01 PM Reporting Lab: [facility] [address] [facility] [address] Performing Lab: [facility] [address] [facility] [address] TSH 1.13 u[IU]/mL 0.35-5.00 Apr 26, 2024 10:14 AM [facility] P4 GLU,BUN,CREAT,LYTES,CA Specimen Type: PLASMA Comment: , Tests performed on [employer] SN:[id number] (405). Ordering Provider: FRANCOISE TRAVIS Report Released Date/Time: Apr 18, 2024 03:01 PM Reporting Lab: [facility] [address] [facility] [address] Performing Lab: [facility] [address] [facility] [address] UREA NITROGEN 17 mg/dL 7-25 SODIUM 135 [...] Apr 18, 2024 03:01 PM Reporting Lab: [facility] [address] [facility] [address] Performing Lab: [facility] [address] [facility] [address] WBC 6.9 10*3/uL 4.5-11.0 RBC 5.32 10*6/uL 4.23-5.66 HGB 15.6 g/dL 12.8-17 HEMATOCRIT 45.9 39.2-50.4 MCV 86.3 fL 82-99 MCH 29.3 pg 26.2-32.6 MCHC 34.0 g/dL 30.8-35.1 PLT 285 10*3/uL 140-360 MPV 10.4 fL 9.2-12.4 RDW 12.1 12.0-16.0 Apr 26, 2024 10:14 AM [facility] VIT D 25-OH([facility]) Specimen Type: SERUM Comment: , Tests performed on [employer] Beltran SN:[id number] (405) TSH within normal limits. Reflex testing not required. Ordering Provider: FRANCOISE TRAVIS Report Released Date/Time: Apr 18, 2024 03:01 PM Reporting Lab: [facility] [address] [facility] [address] Performing Lab: [facility] [address] [facility] [address] VIT D 25-OH([facility]UCK) 36.8 ng/mL 20.0-50.0 Encounter Notes: All associated encounter notes This section contains the clinical notes associated to the Encounter. Date/Time Encounter Note(s) Provider Source May 22, 2024 02:39 PM ADDENDUM: LOCAL TITLE: Addendum STANDARD TITLE: ADDENDUM DATE OF NOTE: MAY 22, 2024@14:39:26 ENTRY DATE: MAY 22, 2024@14:39:27 AUTHOR: FRANK HARDEN EXP COSIGNER: URGENCY: STATUS: COMPLETED would like to go to: [facility] [id number] Site Name: [facility] Address: [address] [place] [address], [address] Phone #: Fax #: /fredy/ FRANK HARDEN Signed: 05/22/2024 14:39 Receipt Acknowledged By: 05/23/2024 14:55 /fredy/ STEPHEN MILLER Registered Nurse 05/28/2024 14:12 /es/ DI WEN MATHEMATICS EDUCATION PROFESSOR --- Original Document --- 05/21/24 Has Admin Note: Reason for call Clinic Name:[facility] Pt had eye appt scheduled for routine eye exam on 07/04/24. Pt cx appt due to being out of the area. Next avail opening is March 2025. Pt is requesting to be seen in the Community. No preference on provider, just wants soonest available. /es/ ENRIQUE ANGLIN Signed: 05/21/2024 12:43 Receipt Acknowledged By: 05/23/2024 14:55 /fredy/ STEHPEN MILLER Registered Nurse 05/21/2024 13:54 /es/ FR[facility] May 21, 2024 12:42 PM ADMINISTRATIVE NOT E: LOCAL TITLE: Has Admin Note STANDARD TITLE: ADMINISTRATIVE NOTE DATE OF NOTE: MAY 21, 2024@12:42 ENTRY DATE: MAY 21, 2024@12:42:38 AUTHOR: ENRIQUE URIAS COSIGNER: URGENCY: STATUS: COMPLETED Has Admin Note Has ADDENDA Reason for call Clinic Name:[facility] Pt had eye appt scheduled for routine eye exam on 07/04/24. Pt cx appt due to being out of the area. Next avail opening is March 2025. Pt is requesting to be seen in the Community. No preference on provider, just wants soonest available. /fredy/ ENRIQUE ANGLIN Signed: 05/21/2024 12:43 Receipt Acknowledged By: 05/23/2024 14:55 /fredy/ STEPHEN MILLER Registered Nurse 05/21/2024 13:54 /dafne HARDEN 05/22/2024 ADDENDUM STATUS: COMPLETED [place] would like to go to: Site Name: [facility] Address: [address] [place] [address], [address] Phone #: Fax #: /fredy/ FRANK HARDEN Signed: 05/22/2024 14:39 Receipt Acknowledged By: 05/23/2024 14:55 /dafne MILLER Registered Nurse ENRIQUE URIAS [facility]
--- OUTSIDE RECORDS SUMMARY | 2024-09-15 21:05 | XMS_ITS | Encounter Summary ---
Author Name [facility] [place] Address [address] [place] [address] Care Team Providers Care Academic Department Chair Name Role Phone ANG ARMANDO Primary Care [...] SERVICE SOV RET UNDER Nov 03, 2020 [id number] [phone] MELLOLISA SHAILESH PATIENT ANTHEM [employer] [place] POINT OF SERVICE SOV ACTIV E SELEC TCAR Oct 03, 2018 [id number] LISA SARKAR PATIENT [employer] [place] POINT OF SERVICE SOV RET UNDER 65 DESTINY Nov 03, 2020 [id number] MELLOLISA CASH PATIENT [employer] [place] POINT OF SERVICE SOV ACTIV E SELEC TCAR Oct 03, 2018 [id number] [id number] LISA SARKAR PATIENT [employer] [place] POINT OF SERVICE SOV RET UNDER 65 [place]ST[place] Oct 03, 2018 [id number] LISA SARKAR PATIENT [employer] ([id number]) PRESCRIPT ION [facility] [place] [facility] Oct 03, 2018 [id number] [phone] LISA SARKAR PATIENT Selected Encounter This section includes the information on record at [place] for the Encounter. Date/Time Encounter Type Encounter Description Reason Pro vider Source May 15, 2024 12:00 PM Outpatient Encounter COMMUNITY CARE CONSULT IHE Encounter Template Text not used by [place] Plan of Treatment: Future Appointments (+ 6 [...] - [place]IC[place] [facility] Jun 06, 2024 02:59 PM AM[place]ULATORY - NONE [place] [facility] Jun 18, 2024 01:00 PM AM[place] [facility] Jun 21, 2024 09:30 AM AM[place] [facility] Jul 17, 2024 03:00 PM AMBULATORY - [place] [facility] Jul 18, 2024 11:30 AM [place] [facility] Jul 23, 2024 03:00 PM AMBULATORY - [place] [facility] Aug 21, 2024 11:00 AM AMBULATORY - MEDICINE [facility] Aug 21, 2024 11:15 AM AMBULATORY - MEDICINE [facility] Sep 07, 2024 12:15 PM AMBULATORY - MEDICINE [facility] Sep 17, 2024 02:00 PM AM[place] - [place] [facility] Oct 08, 2024 03:00 PM [facility] Oct 16, 2024 03:00 PM [facility] Lab Results: +/- 30 days of [...] Type: BLOOD Comment: , Tests performed on [employer] SN:[id number] (405) Values obtained from A1C measurements can vary. For typical A1C assays, a reported value of 7.0 could actually be between 6.72 and 7.28 if measured by a reference method. A reported value of 9.0 could actually be between 8.73 and 9.27. Ref: http://www.ng sp.org/CAPdat a.asp Ordering Provider: FRANCOISE TRAVIS Report Released Date/Time: Apr 18, 2024 03:01 PM Reporting Lab: [facility] [address] [facility] [address] Performing Lab: [facility] [address] [facility] [address] HEMOGLOBIN A1C 5.2 4.0-5.6 Apr 26, 2024 10:14 AM [facility] PSA (COFFEE TASTER) Specimen Type: SERUM Comment: , Tests performed on Castro [employer] Beltran SN:[id number] (405) TSH within normal limits. Reflex testing not required. Ordering Provider: FRANCOISE TRAVIS Report Released Date/Time: Apr 18, 2024 03:01 PM Reporting Lab: [facility] [address] [facility] [address] Performing Lab: [facility] [address] [facility] [address] PSA (COFFEE TASTER) 1.15 ng/mL Apr 26, 2024 10:14 AM [facility] LIPOPROTEIN CHOLESTEROL FRACT. PANEL Specimen Type: PLASMA Comment: , Tests performed on [employer] LY[employer] Gerald SN:[id number] (405). Ordering Provider: FRANCOISE TRAVIS Report Released Date/Time: Apr 18, 2024 03:01 PM Reporting Lab: [facility] [address] [facility] [address] Performing Lab: [facility] [address] [facility] [address] CHOLESTEROL 167 mg/dL 0-200 TRIGLYCERIDE 238 mg/dL H 0-150 HDL CHOLESTEROL 35 mg/dL L >40 LDL CHOLESTEROL (CALC) 84 mg/dL 0-129 Apr 26, 2024 10:14 AM [facility] LIVER PROFILE Specimen Type: PLASMA Comment: , Tests performed on [employer] SN:[id number] (405). Ordering Provider: FRANCOISE TRAVIS Report Released Date/Time: Apr 18, 2024 03:01 PM Reporting Lab: [facility] [address] [facility] [address] Performing Lab: [place] [phone] PROTEIN, TOTAL 7.0 g/dL 6.0-8.5 ALBUMIN 3.9 [...] 2024 03:01 PM Reporting Lab: [facility] [address] [facility] [address] Performing Lab: [facility] [address] [facility] [address] WBC 6.9 10*3/uL 4.5-11.0 RBC 5.32 10*6/uL 4.23-5.66 HGB 15.6 g/dL 12.8-17 HEMATOCRIT 45.9 39.2-50.4 MCV 86.3 fL 82-99 MCH 29.3 pg 26.2-32.6 MCHC 34.0 g/dL 30.8-35.1 PLT 285 10*3/uL 140-360 MPV 10.4 fL 9.2-12.4 RDW 12.1 12.0-16.0 Apr 26, 2024 10:14 AM [facility] P4 GLU,BUN,CREAT,LYTES,CA Specimen Type: PLASMA Comment: , Tests performed on [employer] SN:[id number] (405). Ordering Provider: FRANCOISE TRAVIS Report Released Date/Time: Apr 18, 2024 03:01 PM Reporting Lab: [facility] [address] [facility] [address] Performing Lab: [facility] [address] [facility] [address] UREA NITROGEN 17 mg/dL 7-25 SODIUM 135 mmol/L 135-145 POTASSIUM 4.3 mmol/L 3.5-5.0 CHLORIDE 101 mmol/L 100-110 CARBON DIOXIDE 28 mmol/L 20-30 ANION GAP 6 4-16 GLUCOSE 94 mg/dL 65-100 CREATININE 0.90 mg/dL 0.50-1.50 CALCIUM 9.5 mg/dL 8.5-10.5 eGFR(CKD-EPI 2020) >90 mL/min Apr 26, 2024 10:14 AM [facility] THYROID TESTING CASCADE Specimen Type: SERUM Comment: , Tests performed on [employer] SN:[id number] (405) TSH within normal limits. Reflex testing not required. Ordering Provider: FRANCOISE TRAVIS Report Released Date/Time: Apr 18, 2024 03:01 PM Reporting Lab: [facility] [address] [facility] [address] Performing Lab: [facility] [address] [facility] [address] TSH 1.13 u[IU]/mL 0.35-5.00 Apr 26, 2024 10:14 AM [facility] VIT D 25-OH([facility]) Specimen Type: SERUM Comment: , Tests performed on [employer] SN:[id number] (405) TSH within normal limits. Reflex testing not required. Ordering Provider: FRANCOISE TRAVIS Report Released Date/Time: Apr 18, 2024 03:01 PM Reporting Lab: [facility] [address] [facility] [address] Performing Lab: [facility] [address] [facility] [address] VIT D 25-OH([facility]) 36.8 ng/mL 20.0-50.0 Encounter Notes: All associated encounter notes This section contains the clinical notes associated to the Encounter. Date/Time Encounter Note(s) Provider Source May 15, 2024 12:00 PM NONVA CONSULT: LOCAL TITLE: COMMUNITY CARE CONSULT RESULT NOTE STANDARD TITLE: NONVA CONSULT DATE OF NOTE: MAY 15, 2024@12:00 ENTRY DATE: MAY 30, 2024@14:23:04 AUTHOR: KIERRA REGALADO EXP COSIGNER: URGENCY: STATUS: COMPLETED VistA Imaging - Scanned Document COMMUNITY CARE-ORTHOPEDICS GENERAL Date of Service (Procedure/Event): 05/15/2024 Note Title: COMMUNITY CARE CONSULT RESULT NOTE Type: PROGRESS NOTE Specialty: ORTHOPEDICS OFFICE NELEX-[id number] SHOULDER PAIN [facility] SCANNED DOCUMENT SIGNATURE NOT REQUIRED Electronically Filed: 05/30/2024 by: KIERRA CYR [facility]
--- OUTSIDE RECORDS SUMMARY | 2024-09-15 21:05 | XMS_ITS | Encounter Summary ---
Author Name [facility] [place] Organization [facility] [place] Address [address] [place] [address] Care Team Providers Care Web Production Manager Name Role Phone ANG ARMANDO Primary [...] Relationship to Policy [place] GONZALEZEM [employer] [place] POINT OF SERVICE SOV RET UNDER Nov 03, 2020 [id number] MELLOLISA SHAILESH PATIENT ANTHEM [employer] [place] POINT OF SERVICE SOV ACTIV E SELEC TCAR Oct 03, 2018 [id number] 00 SARKARLISA SHAILESH PATIENT [employer] [place] POINT OF SERVICE SOV RET UNDER 65 DESTIN[place] Nov 03, 2020 [id number] 00 MELLOLISA SHAILESH PATIENT [employer] [place] POINT OF SERVICE SOV ACTIV E SELEC TCAR Oct 03, 2018 [id number] [phone] LISA SARKAR PATIENT [employer] [place] POINT OF SERVICE SOV RET UNDER 65 [place] Oct 03, 2018 [id number] LISA SARKAR PATIENT [employer] ([id number]) PRESCRIPT ION [facility] Oct 03, 2018 [id number] [phone] LISA SARKAR PATIENT Selected Encounter This section includes the information on record at [place] for the Encounter. Date/Time Encounter Type Encounter Description Reason Provider Source Jul 17, 2024 03:00 PM THERAPEUTIC EXERCISES PHYSICAL THERAPY ICD-10-CM M67.919 Unsp disorder of synovium and tendon, unspecified shoulder MICUCCI,RINKU IHE Encounter Template Text not used by [place] Assessments - Encounter Diagnoses This section includes the primary and secondary diagnoses documented for the Encounter. Date/Time Primary/Secondary Diagnosis Diagnosis Name Provider Source Jul 18, 2024 07:54 AM PRIMARY Unsp disorder of synovium and tendon, unspecified shoulder [facility]UCCI,[facility] Jul 18, 2024 07:54 AM SECONDARY Cervicalgia MICUCCI,[facility] Jul 18, 2024 07:54 AM SECONDARY Pain in right shoulder MICUCCI,[facility] Plan of Treatment: Future Appointments [...] Date/Time Appointment Type Appointme nt Facility Name Jul 18, 2024 11:30 AM AMBULATORY - SURGERY [facility] Jul 23, 2024 03:00 PM AMBULATORY - REHAB MEDICIN E [facility] Aug 21, 2024 11:00 AM AMBULATORY - MEDICINE [facility] Aug 21, 2024 11:15 AM AMBULATORY - MEDICINE [facility] Sep 07, 2024 12:15 PM AMBULATORY - MEDICINE [facility] Sep 17, 2024 02:00 PM AMBULATORY - [facility]IN [facility] Oct 08, 2024 03:00 PM AMBULATORY - REHAB MEDICIN E [facility] Oct 16, 2024 03:00 PM AMBULATORY - REHAB MEDICIN E [facility] Social History: Smoking Status (Most current) and Tobacco Use (All prior to encounter date) This section includes the most current, and the historical, smoking and tobacco- related health factors from the [place] facility where the Encounter took place. Current Smoking Status This section includes the most current smoking, or tobacco-related health factor, from the [place] facility where the Encounter took place. Date/Time Current Smoking Status Comment Facil ity Apr 26, 2024 09:30 AM VA-TOBACCO QUIT 1 TO < 5 YRS [facility] Tobacco Use History This section includes a history of the smoking, or tobacco-related health factors, that were collected on or before the date of the Encounter. The data comes from the [place] facility where the Encounter took place. Date/Time Smoking Status/Tobacco Use Comment F acility Apr 26, 2024 09:30 AM VA-TOBACCO QUIT 1 TO < 5 YRS [facility] Apr 21, 2023 11:00 AM VA-TOBACCO NEVER USED [facility] Aug 05, 2021 09:04 AM VA-TOBACCO FORMER USER [facility] Aug 05, 2021 09:04 AM VA-TOBACCO QUIT 5 TO < 15 YRS [facility] Jul 03, 2020 08:45 AM VA-TOBACCO FORMER USER [facility] Jul 03, 2020 08:45 AM VA-TOBACCO QUIT 5 TO < 15 YRS [facility] Dec 20, 2005 03:58 PM LIFETIME NON-TOBACCO USER [facility] Encounter Notes: All associated encounter notes This section contains the clinical notes associated to the Encounter. Date/Time Encounter Note(s) Provider Source Jul 17, 2024 03:00 PM PHYSICAL THERAPY N OTE: LOCAL TITLE: Physical Therapy Note STANDARD TITLE: PHYSICAL THERAPY NOTE DATE OF NOTE: JUL 17, 2024@15:00 ENTRY DATE: JUL 17, 2024@15:00:56 AUTHOR: RINKU LANE EXP COSIGNER: URGENCY: STATUS: COMPLETED Diagnosis: LBP, bilat hip pain worsening, cervicalgia, R shoulder pain/ RC tear. Referred by: Eli BUNCH Referred for: Evaluate and treat Date of Onset: Chronic Start of Physical Therapy plan of care: 07/10/21 Visit # 32 S. Upper traps and R shoulder don't feel great- maybe they won't until I get the surgery done. The hunting trip in [place] went really well. O. therex NUSTEP L4, 8 mins c & shoulder AROM Manual Therapy Supported crook supine Occipital release, manual traction, 1st rib mobilization bilat. STM bilat UT/ scalane IASTM Graston technique R shoulder- GH abd @ 80 GT 3, 4 Sweep, scoop (biceps), strum. (Prone for L LE MLD knee, lower leg. IASTM gastroc, soleus GT 3, 4 Sweel, scoop, strum. ) TP Dry Needling R upper traps (prone) R shoulder ant delt, medial delt. (sitting) c/o post tx that the neck & shoulder feel somewhat better. ========= Assessment/Prognosis/Rehabilit ation Potential: 51 y/o know to this clinic returns with progressing back pain (T-L) and L sciatica. Per PCP for trial [employer], but we also schedule for plan as above this winter. Mod- good rehab potential. ? Nerve vs ST pain: possibly Intercostobrachial, lateral cutaneous branches of Intercostal N, lateral or medial pectoral nerve. Plan: MT, TE, postural re ed TPDN next visit- gastroc, soleus L Shoulder R. C spine PRN. Short Term Goals: 4-6 weeks 1. [place] to be I with shoulder strengthening program. [facility] Goals: 8-16 weeks 1. [place] to have strength WFL. Total Time: 55 Therex 10 Manual Therapy 15093 30 Thera Activity 12[address] [place] [address] Hot/Cold Pack 97608 Estim 19435 Ultrasound 25828 Ortho fit Iontophoresis Subs eval SHockwave therapy Dry Needling 3+ muscles 15 The above results and recommendations were [...] /fredy/ RINKU LANE Physical Therapist, licenced in [place] Signed: 07/18/2024 07:[address] [facility]
--- OUTSIDE RECORDS SUMMARY | 2024-09-15 21:05 | XMS_ITS | Encounter Summary ---
Author Name [facility] [place] Organization [facility] [place] Address [address] [place] [address] Care Team Providers Care Supervisor Pyrotechnic Loading Name Role Phone ANG ARMANDO Primary Care [...] Relationship to Policy [place] ANTHEM [employer] [place] POINT OF SERVICE SOV RET UNDER Nov 03, 2020 [id number] MELLOLISA SHAILESH PATIENT ANTHEM [employer] [place] POINT OF SERVICE SOV ACTIV E SELEC TCAR Oct 03, 2018 [id number] [phone] LISA SARKAR PATIENT [employer] POINT OF SERVICE SOV RET UNDER 65 DESTINY Nov 03, 2020 [id number] LISA SARKAR PATIENT [employer] [place] POINT OF SERVICE SOV ACTIV E SELEC TCAR Oct 03, 2018 [id number] LISA SARKAR PATIENT BS OF [place] POINT OF SERVICE SOV RET UNDER 65 DESTINY Oct 03, 2018 [id number] LISA SARKAR PATIENT [employer] S[employer] ([id number]) PRESCRIPT ION [facility] NT Oct 03, 2018 [id number] LISA SARKAR PATIENT Selected Encounter This section includes the information on record at [place] for the Encounter. Date/Time Encounter Type Encounter Description Reason Pro vider Source Jul 30, 2024 01:58 PM Outpatient Encounter ADMIN PAT ACTIVTIES (MASNONCT) IHE Encounter Template Text not used by VA Plan of Treatment: Future Appointments (+ 6 months) and Future Tests (+/- 45 days) The Plan of Treatment section includes future care activities for the patient from all [place] treatmentfacilities. This section includes future appointments and future orders which are active, pending or scheduled. Future Appointments This section includes appointments that were scheduled to occur 6 months from the date of the Encounter, up to a maximum of 20 appointments. The data comes from all [place] treatment facilities. Appointment Date/Time Appointment Type Appointme nt Facility Name Aug 21, 2024 11:00 AM AMBULATORY - MEDICINE [facility] Aug 21, 2024 11:15 AM AMBULATORY - MEDICINE [facility] Sep 07, 2024 12:15 PM AMBULATORY - MEDICINE [facility] Sep 17, 2024 02:00 PM AMBULATORY - REHAB MEDICIN E [facility] Oct 08, 2024 03:00 PM AMBULATORY - REHAB MEDICIN E [facility] Oct 16, 2024 03:00 PM AMBULATORY - REHAB MEDICIN E [facility] Encounter Notes: All associated encounter notes This section contains the clinical notes associated to the Encounter. Date/Time Encounter Note(s) Provider Source Aug 02, 2024 11:39 AM ADDENDUM: LOCAL TITLE: Addendum STANDARD TITLE: ADDENDUM DATE OF NOTE: AUG 02, 2024@11:39:09 ENTRY DATE: AUG 02, 2024@11:39:10 AUTHOR: MACKENZIE BEASLEY COSIGNER: URGENCY: STATUS: COMPLETED Pt. is contacted. Reports that he has a mole on his back that has recently changed in size. It is becoming larger. Area is [id number]. He has not applied any OTC meds to it. He does have a family hx. of skin cancer. Requested nisa seen by dermatology. Advised him that dermatology is booking out 6-7 months. Reviewed Tele-derm procedure which he is agreeable to. /fredy/ MACKENZIE BEASLEY Registered Nurse Signed: 08/02/2024 11:43 Receipt Acknowledged By: 08/06/2024 16:30 /es/ FRANCOISE TRAVIS APRN --- Original Document --- 07/30/24 CCC: SCHEDULING ADMINISTRATION: Patient Demographics Patient Name: PITER SARKAR Patient Primary Phone: [phone] Patient Primary Address: [address] [place] [id number] Patient : 1970 Patient Age: 53 Caller/Recipient Relation to Patient: Self Administrative Administrative Note Reason: Other Administrative Note Comments: Freeman calling, would like a referral/consult for Dermatology as he has a mole on his back that he wants to be checked out. Please advise. IMPORTANT: This note was created by [facility] staff. Please do not alert the staff member by adding them as a signer for future communications. Alerts are not monitored by this user. /es/ KIRSTEN DONATO 1 [facility] LEAD AMSA Signed: 07/30/2024 13:58 Receipt Acknowledged By: 08/02/2024 13:13 /es/ MIKAEL LEIVA LPN 08/02/2024 11:43 /fredy/ MACKENZIE BEASLEY Registered Nurse 08/06/2024 16:27 /fredy/ MACKENZIE FOLEY APRN [facility] Jul 30, 2024 01:58 PM ADMINISTRATIVE NOT E: LOCAL TITLE: CCC: SCHEDULING ADMINISTRATION STANDARD TITLE: ADMINISTRATIVE NOTE DATE OF NOTE: JUL 30, 2024@13:58:20 ENTRY DATE: JUL 30, 2024@13:58:20 AUTHOR: KIRSTEN RODRIGUEZ COSIGNER: URGENCY: STATUS: COMPLETED CCC: SCHEDULING ADMINISTRATION Has ADDENDA Patient Demographics Patient Name: PITER SARKAR Patient Primary Phone: [phone] Patient Primary Address: [address] [place] [id number] Patient : 1970 Patient Age: 53 Caller/Recipient Relation to Patient: Self Administrative Administrative Note Reason: Other Administrative Note Comments: Freeman calling, would like a referral/consult for Dermatology as he has a mole on his back that he wants to be checked out. Please advise. IMPORTANT: This note was created by [facility] Contact [facility] staff. Please do not alert the staff member by adding them as a signer for future communications. Alerts are not monitored by this user. /fredy/ KIRSTEN DONATO 1 [facility] LEAD AMSA Signed: 07/30/2024 13:58 Receipt Acknowledged By: 08/02/2024 13:13 /es/ MIKAEL LEIVA SURGICAL SCRUB TECH 08/02/2024 11:43 /es/ MACKENZIE BEASLEY Registered Nurse 08/06/2024 16:27 /es/ FRANCOISE TRAVIS COLD MILL OPERATOR 08/02/2024 ADDENDUM STATUS: COMPLETED Pt. is contacted. Reports that he has a mole on his back that has recently changed in size. It is becoming larger. Area is [id number]-mvakq. He has not applied any OTC meds to it. He does have a family hx. of skin cancer. Requested nisa seen by dermatology. Advised him that dermatology is booking out 6-7 months. Reviewed Tele-derm procedure which he is agreeable to. /es/ MACKENZIE BEASLEY Registered Nurse Signed: 08/02/2024 11:43 Receipt Acknowledged By: * AWAITING SIGNATURE * FRANCOISE TRAVIS KRISTIN [facility]
--- OUTSIDE RECORDS SUMMARY | 2024-09-15 21:05 | XMS_ITS | Encounter Summary ---
Author Name [facility] [place] Organization [facility] [place] Address [address] [place] [address] Care Team Providers Care Dairy Specialist Name Role Phone ANG ARMANDO Primary [...] SERVICE SOV RET UNDER Nov 03, 2020 [id number] SARKARLISA PATIENT ANTHEM [employer] [place] POINT OF SERVICE SOV ACTIV E SELEC TCAR Oct 03, 2018 [id number] [phone] LISA SARKAR PATIENT [place] POINT OF SERVICE SOV RET UNDER 65 DESTINY Nov 03, 2020 [id number] 00 LISA SARKAR PATIENT [employer] POINT OF SERVICE SOV ACTIV E SELEC TCAR Oct 03, 2018 [id number] LISA SARKAR PATIENT BS [facility] POINT OF SERVICE SOV RET UNDER 65 DESTINY Oct 03, 2018 [id number] LISA SARKAR PATIENT [employer] ([id number]) PRESCRIPT ION [facility] NT Oct 03, 2018 Q54A [id number] LISA SARKAR PATIENT Selected Encounter This section includes the information on record at [place] for the Encounter. Date/Time Encounter Type Encounter Description Reason Provider Source Aug 21, 2024 11:00 AM UNLISTED SPEC DERM SVC/PX DERMATOLOGY ICD-10-CM Z13.89 Encounter for screening for other disorder SHERWIN AMBRIZ Betty Encounter Template Text not used by [place] Assessments - Encounter Diagnoses This section includes the primary and secondary diagnoses documented for the Encounter. Date/Time Primary/Secondary Diagnosis Diagnosis Name Provider Source Aug 31, 2024 03:14 PM PRIMARY Encounter for screening for other disorder SHERWIN AMBRIZ [facility] Plan of Treatment: Future Appointments (+ 6 months) and Future Tests (+/- 45 days) The Plan of Treatment section includes future care activities for the patient from all [place] treatmentfacilities. This section includes future appointments and future orders which are active, pending or scheduled. Future Appointments This section includes appointments that were scheduled to occur 6 months from the date of the Encounter, up to a maximum of 20 appointments. The data comes from all [place] treatment facilities. Appointment Date/Time Appointment Type Appointme nt Facility Name Sep 07, 2024 12:15 PM AMBULATORY - MEDICINE [facility] Sep 17, 2024 02:00 PM AMBULATORY - [place] [place] [facility] Oct 08, 2024 03:00 PM AMBULATORY - [facility] [place] [place] [facility] Oct 16, 2024 03:00 PM AMBULATORY - [facility] Social History: Smoking Status (Most current) and Tobacco Use (All prior to encounter date) This section includes the most current, and the historical, smoking and tobacco- related health factors from the [place] facility where the Encounter took place. Current Smoking Status This section includes the most current smoking, or tobacco-related health factor, from the [place] facility where the Encounter took place. Date/Time Current Smoking Status Comment Anjali ity Apr 26, 2024 09:30 AM VA-TOBACCO QUIT 1 TO < 5 YRS [facility] Tobacco Use History This section includes a history of the smoking, or tobacco-related health factors, that were collected on or before the date of the Encounter. The data comes from the [place] facility where the Encounter took place. Date/Time Smoking Status/Tobacco Use Comment F acility Apr 26, 2024 09:30 AM VA-TOBACCO QUIT 1 TO < 5 YRS [facility] Apr 21, 2023 11:00 AM VA-TOBACCO NEVER USED [facility] Aug 05, 2021 09:04 AM VA-TOBACCO FORMER USER [facility] Aug 05, 2021 09:04 AM VA-TOBACCO QUIT 5 TO < 15 YRS [facility] Jul 03, 2020 08:45 AM VA-TOBACCO FORMER USER [facility] Jul 03, 2020 08:45 AM VA-TOBACCO QUIT 5 TO < 15 YRS [facility] Dec 20, 2005 03:58 PM LIFETIME NON-TOBACCO USER [facility] Encounter Notes: All associated encounter notes This section contains the clinical notes associated to the Encounter. Date/Time Encounter Note(s) Provider Source Aug 21, 2024 11:21 AM TELEIMAGING NOTE: LOCAL TITLE: CONSULT Teledermatology Imaging Request STANDARD TITLE: TELEIMAGING NOTE DATE OF NOTE: AUG 21, 2024@11:21 ENTRY DATE: AUG 21, 2024@11:21:37 AUTHOR: SHERWIN AMBRIZ EXP COSIGNER: URGENCY: STATUS: COMPLETED Teledermatology Consult Request The patient was educated regarding the Teledermatology process at this encounter. Patient DOES consent to have images taken, viewed, and interpreted using the Teledermatology process. This consult addresses: A new condition Images were acquired: In clinic HISTORY: Prior skin history: None reported Have you had a skin cancer before? None Reported Family melanoma history: Father, Grandfather Taking new med/supplements: None reported Immunosuppression history: None reported Other significant history: None reported Chief Complaint: mole that is growing PROBLEM A LOCATION(S): back DURATION: unknown SYMPTOMS: Itch CHANGES: Size TREATMENT: No BIOPSY: No Radio Time Buyer's comments: Imaged per providers order and policy. /fredy/ SHERWIN AMBRIZ Health Hog Scalder Signed: 08/21/2024 11:24 [facility]
--- OUTSIDE RECORDS SUMMARY | 2024-09-15 21:05 | XMS_ITS | Encounter Summary ---
Author Name [facility] [place] Address [address] [place] [address] Care Team Providers Care Turnstile Collector Name Role Phone ANG ARMANDO Primary Care [...] Relationship to Policy [place] ANTHEM [employer] [place] POINT OF SERVICE SOV RET UNDER Nov 03, 2020 [id number] MELLOLISA SHAILESH PATIENT ANTHEM [employer] [place] POINT OF SERVICE SOV ACTIV E SELEC TCAR Oct 03, 2018 [id number] LISA SARKAR PATIENT [employer] [place] POINT OF SERVICE SOV RET UNDER 65 DESTINY Nov 03, 2020 [id number] 00 LISA SARKAR PATIENT [employer] [place] POINT OF SERVICE SOV ACTIV E SELEC TCAR Oct 03, 2018 [id number] 00 LISA SARKAR PATIENT [employer] POINT OF SERVICE SOV RET UNDER 65 DESTINY Oct 03, 2018 [id number] LISA SARKAR PATIENT [employer] ([id number]) PRESCRIPT ION [facility] NT Oct 03, 2018 Q54A [id number] [phone] LISA SARKAR PATIENT Selected Encounter This section includes the information on record at [place] for the Encounter. Date/Time Encounter Type Encounter Description Reason Pro vider Source Aug 08, 2024 01:55 PM Outpatient Encounter ADMIN PAT ACTIVTIES (MASNONCT) IHE Encounter Template Text not used by VA Plan of Treatment: Future Appointments (+ 6 months) and Future Tests (+/- 45 days) The Plan of Treatment section includes future care activities for the patient from all [place] treatmentfacilities. This section includes future appointments and [...] 21, 2024 11:00 AM AMBULATORY - MEDICINE [facility] Aug 21, 2024 11:15 AM AMBULATORY - MEDICINE [facility] Sep 07, 2024 12:15 PM AMBULATORY - MEDICINE [facility] Sep 17, 2024 02:00 PM AMBULATORY - [place]IN [place] [facility] Oct 08, 2024 03:00 PM AMBULATORY - [place]IN [place] [facility] Oct 16, 2024 03:00 PM AMBULATORY - [place] [facility] Encounter Notes: All associated encounter notes This section contains the clinical notes associated to the Encounter. Date/Time Encounter Note(s) Provider Source Aug 08, 2024 01:55 PM ADMINISTRATIVE NOT E: LOCAL TITLE: Administrative Note/Telehealth STANDARD TITLE: ADMINISTRATIVE NOTE DATE OF NOTE: AUG 08, 2024@13:55 ENTRY DATE: AUG 08, 2024@13:55:25 AUTHOR: SHERWIN AMBRIZ COSIGNER: URGENCY: STATUS: COMPLETED Administrative Note/Telehealth Has ADDENDA Call out to patient to schedule TELEDERMATOLOGY appointment. No answer at this time. VM left with contact information, hours of operation and request for return call back to . Please forward to when patient returns call. Thank you. /fredy/ SHERWIN AMBRIZ Health Airplane Pilot Crop Dusting Signed: 08/08/2024 13:55 08/09/2024 ADDENDUM STATUS: COMPLETED Patient came to clinic to make TELEDERM appt. Negotiated date and time with patient on 08/21/2024 @ 11:00am. /fredy/ SHERWIN AMBRIZ Health Airplane Pilot Crop Dusting Signed: 08/09/2024 10:53 SHERWIN AMBRIZ NIKA
--- OUTSIDE RECORDS SUMMARY | 2024-09-15 21:05 | XMS_ITS | Encounter Summary ---
Author Name [facility] [place] Organization [place] Address [address] [place] [address] Care Team Providers Care Warp Bleaching Vat Tender Name Role Phone ANG ARMANDO Primary Care [...] SERVICE SOV RET UNDER Nov 03, 2020 [id number] [phone] MELLOLISA SHAILESH PATIENT ANTHEM [place] POINT OF SERVICE SOV ACTIV E SELEC TCAR Oct 03, 2018 [id number] 00 SARKARLISA SHAILESH PATIENT [employer] POINT OF SERVICE SOV RET UNDER 65 DESTINY Nov 03, 2020 [id number] 00 MELLOLISA SHAILESH PATIENT [employer] POINT OF SERVICE SOV ACTIV E SELEC TCAR Oct 03, 2018 [id number] 00 LISA SARKAR PATIENT [employer] POINT OF SERVICE SOV RET UNDER 65 DESTINY Oct 03, 2018 [id number] LISA SARKAR PATIENT [employer] ([id number]) PRESCRIPT ION [facility] NT Oct 03, 2018 Q54A [id number] [phone] LISA SARKAR PATIENT Selected Encounter This section includes the information on record at [place] for the Encounter. Date/Time Encounter Type Encounter Description Reason Provider Source Jun 21, 2024 09:30 AM UNLISTED THERAPEUTIC PX PHYSICAL THERAPY ICD-10-CM M76.62 Achilles tendinitis, left leg MICUCCI,RINKU IHE Encounter Template Text not used by [place] Assessments - Encounter Diagnoses This section includes the primary and secondary diagnoses documented for the Encounter. Date/Time Primary/Secondary Diagnosis Diagnosis Name Provider Source Jul 02, 2024 12:26 PM PRIMARY Achilles tendinitis, left leg [facility]CCI,[facility] Jul 02, 2024 12:26 PM SECONDARY Pain in right shoulder [facility]CCI,[facility] Plan of Treatment: Future Appointments (+ 6 months) and Future Tests (+/- 45 days) The Plan of Treatment section includes future care activities for the patient from all [place] treatmentfacilities. This section includes future appointments and future orders which are active, pending or scheduled. Future Appointments This section includes appointments that were scheduled to occur 6 months from the date of the Encounter, up to a maximum of 20 appointments. The data comes from all [place] treatment facilities. Appointment Date/Time Appointment Type Appointme nt Facility Name Jul 17, 2024 03:00 PM AM[place]ULAT[place] [facility] Jul 18, 2024 11:30 AM [place] [facility] Jul 23, 2024 03:00 PM AMBULAT[place] [facility] Aug 21, 2024 11:00 AM AMBULATORY - MEDICINE [facility] Aug 21, 2024 11:15 AM AMBULATORY - MEDICINE [facility] Sep 07, 2024 12:15 PM AMBULATORY - MEDICINE [facility] Sep 17, 2024 02:00 PM AMBULATORY - [facility] Oct 08, 2024 03:00 PM [facility] Oct 16, 2024 03:00 PM AMBULATORY - [facility] Social History: Smoking Status (Most current) and Tobacco Use (All prior to encounter date) This section includes the most current, and the historical, smoking and tobacco- related health factors from the [place] facility where the Encounter took place. Current Smoking Status This section includes the most current smoking, or tobacco-related health factor, from the [place] facility where the Encounter took place. Date/Time Current Smoking Status Comment Facil ity Apr 26, 2024 09:30 AM VA-TOBACCO FORMER USER [facility] Tobacco Use History This section includes a history of the smoking, or tobacco-related health factors, that were collected on or before the date of the Encounter. The data comes from the [place] facility where the Encounter took place. Date/Time [...] the Encounter. Date/Time Encounter Note(s) Provider Source Jun 21, 2024 09:31 AM PHYSICAL THERAPY N OTE: LOCAL TITLE: Physical Therapy Note STANDARD TITLE: PHYSICAL THERAPY NOTE DATE OF NOTE: JUN 21, 2024@09:31 ENTRY DATE: JUN 21, 2024@09:31:09 AUTHOR: RINKU LANE COSIGNER: URGENCY: STATUS: COMPLETED Physical Therapy Note Has ADDENDA Diagnosis: LBP, bilat hip pain worsening. Referred by: Eli BUNCH Referred for: Evaluate and treat Date of Onset: Chronic Start of Physical Therapy plan of care: 07/10/21 Visit # 31 Armando Multanis ISQ- looking forwards to hunting trip in [place] with friends and one of his sons. O. Manual Therapy Supported crook supine Occipital release, manual traction, 1st rib mobilization bilat. STM bilat UT/ scalane IASTM Graston technique R shoulder- GH abd @ 80 GT 3, 4 Sweep, scoop (biceps), strum. Prone for L LE MLD knee, lower leg. IASTM gastroc, soleus GT 3, 4 Sweel, scoop, strum. RPW Ro-40 Anterior R shoulder and biceps 2 Bar, 14Hz, 2000 pulses. Trigger point agg @ Bicep tendon area. ========= Assessment/Prognosis/Rehabilit ation Potential: 51 y/o know [...] ed Short Term Goals: 4-6 weeks 1. Baldwin to be I with shoulder strengthening program. MET Long-Term Goals: 8-16 weeks 1. Baldwin to have strength WFL. Total Time: 55 Manual Therapy 11913 40 Thera Activity [address] [place] [address] Hot/Cold Pack 38944 Estim 61675 Ultrasound 46705 Ortho fit Iontophoresis Subs eval SHock therapy [...] /fredy/ RINKU LANE Physical Therapist, licenced in [place] Signed: 06/21/2024 16:25 06/21/2024 ADDENDUM STATUS: COMPLETED TPDN next visit- yomi barton Shoulder R. C spine PRN. /fredy/ RINKU LANE Physical Therapist, licenced in [place] Signed: 06/21/2024 16:[address] [facility]
--- OUTSIDE RECORDS SUMMARY | 2024-09-15 21:05 | XMS_ITS | Encounter Summary ---
Author Name [place] Address [address] [place] [address] Care Team Providers Care Correctional Captain Name Role Phone ANG ARMANDO Primary Care [...] SERVICE SOV RET UNDER Nov 03, 2020 [id number] MELLOLISA SHAILESH PATIENT ANTHEM [employer] [place] POINT OF SERVICE SOV ACTIV E SELEC TCAR Oct 03, 2018 [id number] 00 LISA SARKAR PATIENT [employer] POINT OF SERVICE SOV RET UNDER 65 DESTINY Nov 03, 2020 [id number] 00 MELLOLISA CASH PATIENT [employer] [place] POINT OF SERVICE SOV ACTIV E SELEC TCAR Oct 03, 2018 [id number] 00 LISA SARKAR PATIENT BS [facility] POINT OF SERVICE SOV RET UNDER 65 DESTINY Oct 03, 2018 [id number] LISA SARKAR PATIENT [employer] ([id number]) PRESCRIPT ION [facility] NT Oct 03, 2018 [id number] LISA SARKAR PATIENT Selected Encounter This section includes the information on record at [place] for the Encounter. Date/Time Encounter Type Encounter Description Reason Pro vider Source Jun 28, 2024 06:55 AM Outpatient Encounter COMMUNITY CARE CONSULT IHE Encounter Template Text not used by VA Plan of Treatment: Future Appointments (+ 6 months) and Future Tests (+/- 45 days) The Plan of Treatment section includes future care activities for the patient from all [place] treatmentfacilities. This section includes future appointments and future orders which are active, pending or scheduled. Future Appointments This section includes appointments that were scheduled to occur 6 months from the date of the Encounter, up to a maximum of 20 appointments. The data comes from all [place] treatment facilities. Appointment Date/Time Appointment Type Appointme nt Facility Name Jul 17, 2024 03:00 PM AMBULATORY [place] [facility] Jul 18, 2024 11:30 AM [place] [facility] Jul 23, 2024 03:00 PM AMBULATORY [place] [facility] Aug 21, 2024 11:00 AM AMBULATORY - MEDICINE [facility] Aug 21, 2024 11:15 AM AMBULATORY - MEDICINE [facility] Sep 07, 2024 12:15 PM AMBULATORY - MEDICINE [facility] Sep 17, 2024 02:00 PM AMBULATORY [place] [facility] Oct 08, 2024 03:00 PM AMBULATORY [place] [facility] Oct 16, 2024 03:00 PM AMBULATORY [place] [facility] Encounter Notes: All associated encounter notes This section contains the clinical notes associated to the Encounter. Date/Time Encounter Note(s) Provider Source Jun 28, 2024 06:55 AM NONVA CONSULT: LOCAL TITLE: COMMUNITY CARE CONSULT RESULT NOTE STANDARD TITLE: NONVA CONSULT DATE OF NOTE: JUN 28, 2024@06:55 ENTRY DATE: JUL 11, 2024@06:56:46 AUTHOR: LORENA DUONG COSIGNER: URGENCY: STATUS: COMPLETED VistA Imaging - Scanned Document COMMUNITY CARE-OPTOMETRY DISEASE 06/28/2024 EYE EXAMINATION [place] [facility] /fredy/ Lorena Duong MRT Signed: 07/11/2024 06:57 LORENA DUONG [facility]
--- OUTSIDE RECORDS SUMMARY | 2024-09-15 21:05 | XMS_ITS | Encounter Summary ---
Author Name [place] Address [address] [place] [address] Care Team Providers Care Water Gas Operator Name Role Phone ANG ARMANDO Primary [...] SERVICE SOV RET UNDER Nov 03, 2020 [id number] [phone] MELLOLISA SHAILESH PATIENT ANTHEM [employer] POINT OF SERVICE SOV ACTIV E SELEC TCAR Oct 03, 2018 [id number] [phone] SARKARLISA SHAILESH PATIENT [employer] POINT OF SERVICE SOV RET UNDER 65 DESTINY Nov 03, 2020 [id number] MELLOLISA SHAILESH PATIENT [employer] POINT OF SERVICE SOV ACTIV E SELEC TCAR Oct 03, 2018 [id number] [phone] [id number] LISA SARKAR PATIENT [employer] POINT OF SERVICE SOV RET UNDER 65 DESTINY Oct 03, 2018 [id number] [id number] LISA SARKAR PATIENT [employer] ([id number]) PRESCRIPT ION [facility] NT Oct 03, 2018 [id number] [phone] LISA SARKAR PATIENT Selected Encounter This section includes the information on record at [place] for the Encounter. Date/Time Encounter Type Encounter Description Reason Provider Source Jun 05, 2024 02:00 PM UNLISTED THERAPEUTIC PX PHYSICAL THERAPY ICD-10-CM M67.919 Unsp disorder of synovium and tendon, unspecified shoulder MICUCCI,RINKU IHE Encounter Template Text not used by [facility] Assessments - Encounter Diagnoses This section includes the primary and secondary diagnoses documented for the Encounter. Date/Time Primary/Secondary Diagnosis Diagnosis Name Provider Source Jun 05, 2024 05:50 PM PRIMARY Unsp disorder of synovium and tendon, unspecified shoulder [facility] Jun 05, 2024 05:50 PM SECONDARY Achilles tendinitis, left leg [facility] Jun 05, 2024 05:50 PM SECONDARY Cervicalgia [facility]I,[facility] Plan of Treatment: Future Appointments (+ [...] Appointment Type Appointme nt Facility Name Jun 06, 2024 02:59 PM AMBULATORY - NONE [place] [facility] Jun 18, 2024 01:00 PM [facility] [place] [facility] Jun 21, 2024 09:30 AM AM[facility]ULATORY - [place] [facility] Jul 17, 2024 03:00 PM AM[facility] [place] [facility] Jul 18, 2024 11:30 AM AMBULATORY - SURGERY [facility] Jul 23, 2024 03:00 PM AMBULATORY - REHAB MEDICIN E [facility] Aug 21, 2024 11:00 AM AMBULATORY - MEDICINE [facility] Aug 21, 2024 11:15 AM AMBULATORY - MEDICINE [facility] Sep 07, 2024 12:15 PM AMBULATORY - MEDICINE [facility] Sep 17, 2024 02:00 PM AMBULATORY - REHAB MEDICIN E [place] [facility] Oct 08, 2024 03:00 PM AMBULATORY - REHAB MEDICIN E [place] [facility] Oct 16, 2024 03:00 PM AMBULATORY - REHAB MEDICIN E [place] [facility] Social History: Smoking Status (Most current) and Tobacco Use (All prior to encounter date) This section includes the most current, and the historical, smoking and tobacco- related health factors from the [place] facility where the Encounter took place. Current Smoking Status This section includes the most current smoking, or tobacco-related health factor, from the [place] facility where the Encounter took place. Date/Time Current Smoking Status Comment Facil ity Apr 26, 2024 09:30 AM VA-TOBACCO FORMER USER [facility] Tobacco Use History This section includes a history of the smoking, or tobacco-related health factors, that were collected on or before the date of the Encounter. The data comes from the [place] facility where the Encounter took place. Date/Time Smoking Status/Tobacco Use Comment F acility Apr 26, 2024 09:30 AM VA-TOBACCO QUIT 1 TO < 5 YRS [facility] Apr 21, 2023 11:00 AM VA-TOBACCO NEVER USED [facility] Aug 05, 2021 [...] Encounter. Date/Time Encounter Note(s) Provider Source Jun 05, 2024 02:00 PM PHYSICAL THERAPY N OTE: LOCAL TITLE: Physical Therapy Note STANDARD TITLE: PHYSICAL THERAPY NOTE DATE OF NOTE: JUN 05, 2024@14:00 ENTRY DATE: JUN 05, 2024@14:00:28 AUTHOR: RINKU LANE COSIGNER: URGENCY: STATUS: COMPLETED Diagnosis: LBP, bilat hip pain worsening. Referred by: Eli BUNCH Referred for: Evaluate and treat Date of Onset: Chronic Start of Physical Therapy plan of care: 07/10/21 Visit # 30 S. R shoulder: Ortho suggested RCT repair. Not sure wants to be out of commission for as long as needs to be post op- has not decided yet. (We discussed this at length). After discussion, thinks he will opt for repain in one year (Jun 2025). L calf: cramping when walking up hill. If eases off the symptoms go away. Happens about 1x/ month. O. NM re- ed. UE bike L 5 8' 1' intervals forwards/ backwards. discuss R shoulder now lies equal to L. Manual Therapy IASTM Graston technique Seated C spine/ UT/ scalene in forwards lean and upright, rotated positions with GT 3,4 : sweep, fan, strum, jstroke. Noted congestion and loss of mobility R > L mid C spine. Also corrugated feel lateral UT bilaterally. Prone for L LE MLD knee, lower leg. IASTM gastroc, soleus GT 3, 4 Sweel, scoop, strum. RPW Silicone head 1 Bar, 14Hz, 1000 pulses medial and lateral. ========= Assessment/Prognosis/Rehabilit ation Potential: 51 y/o know [...] ed Short Term Goals: 4-6 weeks 1. to be I with shoulder strengthening program. MET Assisted Goals: 8-16 weeks 1. [place] to have strength WFL. Total Time: 55 Manual Therapy 04464 30 Thera Activity 85[address] [place] [address] 10 Hot/Cold Pack 83735 Estim 97204 Ultrasound 24871 Ortho fit Iontophoresis Subs eval SHock therapy [...] /fredy/ RINKU LANE Physical Therapist, licenced in [place] Signed: 06/05/2024 17:[address] [facility]
--- OUTSIDE RECORDS SUMMARY | 2024-09-15 21:05 | XMS_ITS | Encounter Summary ---
Author Name [facility] [place] Address [address] [place] [address] Care Team Providers Care Disc Pad Knockout Worker Name Role Phone ANG ARMANDO Primary [...] Relationship to Policy [place] GONZALEZEM [employer] [place] POINT OF SERVICE SOV RET UNDER Nov 03, 2020 [id number] [phone] SARKARLISA SHAILESH PATIENT ANTHEM [employer] [place] POINT OF SERVICE SOV ACTIV E SELEC TCAR Oct 03, 2018 [id number] LISA SARKAR PATIENT [employer] [place] POINT OF SERVICE SOV RET UNDER 65 DESTINY Nov 03, 2020 [id number] LISA SARKAR PATIENT [employer] [place] POINT OF SERVICE SOV ACTIV E SELEC TCAR Oct 03, 2018 [id number] [phone] LISA SARKAR PATIENT [employer] [place] POINT OF SERVICE SOV RET UNDER 65 DESTINY Oct 03, 2018 [id number] LISA SARKAR PATIENT [employer] ([id number]) PRESCRIPT ION [facility] NT Oct 03, 2018 [id number] LISA SARKAR PATIENT Selected Encounter This section includes the information on record at [place] for the Encounter. Date/Time Encounter Type Encounter Description Reason Pro vider Source IHE Encounter Template Text not used by VA
--- OUTSIDE RECORDS SUMMARY | 2024-09-15 21:05 | XMS_ITS | Encounter Summary ---
Author Name [facility] [place] Address [address] [place] [address] Care Team Providers Care Glost Kiln Operator Name Role Phone ANG ARMANDO Primary [...] SERVICE SOV RET UNDER Nov 03, 2020 [id number] MELLOLISA PATIENT ANTHEM [employer] POINT OF SERVICE SOV ACTIV E SELEC TCAR Oct 03, 2018 [id number] LISA SARKAR PATIENT [employer] [place] POINT OF SERVICE SOV RET UNDER 65 DESTINY Nov 03, 2020 [id number] MELLOLISA CASH PATIENT [employer] [place] POINT OF SERVICE SOV ACTIV E SELEC TCAR Oct 03, 2018 [id number] LISA SARKAR PATIENT [employer] [place] POINT OF SERVICE SOV RET UNDER 65 DESTINY Oct 03, 2018 [id number] LISA SARKAR PATIENT [employer] ([id number]) PRESCRIPT ION [facility] NT Oct 03, 2018 Q54A [id number] LISA SARKAR PATIENT Selected Encounter This section includes the information on record at [place] for the Encounter. Date/Time Encounter Type Encounter Description Reason Provider Source Jun 18, 2024 01:00 PM FIT SPECTACLES MULTIFOCAL OPTOMETRY ICD-10-CM Z46.0 Encounter for fit/adjst of spectacles and contact lenses LOLLY MAGAÑA Betty Encounter Template Text not used by VA Assessments - Encounter Diagnoses This section includes the primary and secondary diagnoses documented for the Encounter. Date/Time Primary/Secondary Diagnosis Diagnosis Name Provider Source Jul 07, 2024 07:54 AM PRIMARY Encounter for fit/adjst of spectacles and contact lenses LOLLY MAGAÑA [facility] Plan of Treatment: Future Appointments (+ 6 months) and Future Tests (+/- 45 days) The Plan of Treatment section includes future care activities for the patient from all [place] treatmentfacilities. This section includes future appointments and future orders which are active, pending or scheduled. Future Appointments This section includes appointments that were scheduled to occur 6 months from the date of the Encounter, up to a maximum of 20 appointments. The data comes from all [place] treatment facilities. Appointment Date/Time Appointment Type Appointme nt Facility Name Jun 21, 2024 09:30 AM AMBULATORY - [facility] Jul 17, 2024 03:00 PM AMBULATORY - RE[facility]AB [facility]ICIN E [facility] Jul 18, 2024 11:30 AM AMBULATORY - SURGERY [facility] Jul 23, 2024 03:00 PM AMBULATORY - REHAB [facility] [place] [facility] Aug 21, 2024 11:00 AM AMBULATORY - MEDICINE [facility] Aug 21, 2024 11:15 AM AMBULATORY - MEDICINE [facility] Sep 07, 2024 12:15 PM AMBULATORY - MEDICINE [facility] Sep 17, 2024 02:00 PM AMBULATORY - [place] [facility] Oct 08, 2024 03:00 PM AM[place] [facility] Oct 16, 2024 03:00 PM AM[place]ATORY [place] [facility] Encounter Notes: All associated encounter notes This section contains the clinical notes associated to the Encounter. Date/Time Encounter Note(s) Provider Source Jun 18, 2024 01:20 PM EYE NOTE: LOCAL TITLE: Eye Optical Fitting Note STANDARD TITLE: EYE NOTE DATE OF NOTE: JUN 18, 2024@13:20 ENTRY DATE: JUN 18, 2024@13:20:38 AUTHOR: LOLLY MAGAÑA EXP COSIGNER: URGENCY: STATUS: COMPLETED NEW FIT Monofocal [place] was fit with new DVO monofocal eyeglasses (65908), which will be mailed to the 's home in approximately three weeks. was informed that he or she may return to the clinic by appointment for fittings, repairs, and adjustments as needed. NEW FIT Multifocal was fit with new multifocal eyeglasses (86465), which will be mailed to the 's home in approximately three weeks. [place] was informed that he or she may return to the clinic by appointment for fittings, repairs, and adjustments as needed. CC RX: [facility] [phone] 06/26/24 EXP - 06/26/26 REQUESTS PAL FULLTIME/DVO DRIVING PAIRS Dr Ajit Amaya, OD [id number] DVO: The quote provided below is for informational purposes only. Please verify prior to the creation of a purchase order. PITER SARKAR 7718 RX INFORMATION OD +1.25 0.00 X Add:+2.00 Pzm:0.00 Dir: Prz2:0.00 Dir2: OS +1.25 0.00 X Add:+2.00 Pzm:0.00 Dir: Prz2:0.00 Dir2: FITTING INFORMATION FPD:63 NPD:60 [place]:R: L: OC HT:R: 18 L: 18 Tint:None Shade:None VA Billable Items FRAME: MICHELLE ALCANTAR [phone] Right Lens: TRIVEX SINGLE VISION TRANSITIONS SMITH TRIVEX Left Lens: TRIVEX SINGLE VISION TRANSITIONS SMITH TRIVEX SCRATCH RESISTANT COATING KLEAR ANTI-REFLECTIVE COATING PAL:The quote provided below is for informational purposes only. Please verify prior to the creation of a purchase order. PITER SARKAR 7718 RX INFORMATION OD +1.25 0.00 X Add:+2.00 Pzm:0.00 Dir: Prz2:0.00 Dir2: OS +1.25 0.00 X Add:+2.00 Pzm:0.00 Dir: Prz2:0.00 Dir2: FITTING INFORMATION FPD: NPD: [place]:R:31.5 L:31.5 SEG HT:R:18 L:18 Tint:None Shade:None VA Billable Items FR[facility]: [facility] [id number] Right Lens: TRIVEX VA PROGRESSIVE TRANSITIONS SMITH TRIVEX Left Lens: TRIVEX VA PROGRESSIVE TRANSITIONS SMITH TRIVEX SCRATCH RESISTANT COATING KLEAR ANTI-REFLECTIVE COATING Glasses fit by:Lolly Magaña /fredy/ LOLLY MAGAÑA MANAGER EDUCATION Signed: 06/27/2024 08:47 Receipt Acknowledged By: 06/27/2024 09:17 /es/ NAEEM CORLEY PILOT CONTROL OPERATOR HELPER LOLLY MAGAÑA [facility]
--- OUTSIDE RECORDS SUMMARY | 2024-09-15 21:05 | XMS_ITS | Encounter Summary ---
Author Name [facility] [place] Organization [place] Address [address] [place] [address] Care Team Providers Care Utilities Estimator And Drafter Name Role Phone ANG ARMANDO [facility] Providers: All historical and [...] Relationship to Policy [place] ANTHEM [employer] [place] POINT OF SERVICE SOV RET UNDER Nov 03, 2020 [id number] MELLOLISA PATIENT ANTHEM [employer] POINT OF SERVICE SOV ACTIV E SELEC TCAR Oct 03, 2018 [id number] LISA SARKAR PATIENT [employer] [place] POINT OF SERVICE SOV RET UNDER 65 DESTINY Nov 03, 2020 [id number] 00 MELLOLISA CASH PATIENT [employer] [place] POINT OF SERVICE SOV ACTIV E SELEC TCAR Oct 03, 2018 [id number] 00 LISA SARKAR PATIENT [employer] [place] POINT OF SERVICE SOV RET UNDER 65 DESTINY Oct 03, 2018 [id number] LISA SARKAR PATIENT [employer] [facility] ([id number]) [facility] Oct 03, 2018 Q54A [id number] LISA SRAKAR PATIENT Selected Encounter This section includes the information on record at [place] for the Encounter. Date/Time Encounter Type Encounter Description Reason Pro vider Source Jul 17, 2024 03:18 PM Outpatient Encounter EVENT (HISTORICAL) IHE Encounter Template Text not used by VA Plan of Treatment: Future Appointments (+ 6 months) and Future Tests (+/- 45 days) The Plan of Treatment section includes future care activities for the patient from all [place] treatmentfacilities. This section includes future appointments and [...] 11:30 AM AMBULATORY - [place] [facility] Jul 23, 2024 03:00 PM AM[place] [facility] Aug 21, 2024 11:00 AM AM[facility]ORY - MEDICINE [facility] Aug 21, 2024 11:15 AM AMBULATORY - MEDICINE [facility] Sep 07, 2024 12:15 PM AMBULATORY - MEDICINE [facility] Sep 17, 2024 02:00 PM [place] [facility] Oct 08, 2024 03:00 PM AM[place] [place] [facility] Oct 16, 2024 03:00 PM AM[place] [place] [facility]
--- OUTSIDE RECORDS SUMMARY | 2024-09-15 21:05 | XMS_ITS | Encounter Summary ---
Author Name [facility] [place] Organization [place] Address [address] [place] [address] Care Team Providers Care Automation Technician Name Role Phone ANG ARMANDO Primary [...] SERVICE SOV RET UNDER Nov 03, 2020 [id number] [phone] LISA SARKAR PATIENT ANTHEM [employer] [place] POINT OF SERVICE SOV ACTIV E SELEC TCAR Oct 03, 2018 [id number] LISA SARKAR PATIENT [employer] POINT OF SERVICE SOV RET UNDER 65 DESTINY Nov 03, 2020 [id number] LISA SARKAR PATIENT [employer] POINT OF SERVICE SOV ACTIV E SELEC TCAR Oct 03, 2018 [id number] LISA SARKAR PATIENT [employer] POINT OF SERVICE SOV RET UNDER 65 DESTINY Oct 03, 2018 [id number] LISA SARKAR PATIENT [employer] ([id number]) PRESCRIPT [facility]ON [facility] NT Oct 03, 2018 [id number] LISA SARKAR PATIENT Selected Encounter This section includes the information on record at [place] for the Encounter. Date/Time Encounter Type Encounter Description Reason Provider Source Aug 21, 2024 11:15 AM OFF/OP EST JANUARY X REQ PHY/QHP PRIMARY CARE/MEDICINE ICD-10-CM Z23 Encounter for immunization ROBERT ROBERSON [facility] Encounter Template Text not used by MD Assessments - Encounter Diagnoses This section includes the primary and secondary diagnoses documented for the Encounter. Date/Time Primary/Secondary Diagnosis Diagnosis Name Provider Source Sep 01, 2024 05:20 AM PRIMARY Encounter for immunization MARILYN ROBERSON RA [facility] Plan of Treatment: Future Appointments (+ 6 months) and Future Tests (+/- 45 days) The Plan of Treatment section includes future care activities for the patient from all [place] treatmentfacilities. This section includes future appointments and future orders which are active, pending or scheduled. Future Appointments This section includes appointments that were scheduled to occur 6 months from the date of the Encounter, up to a maximum of 20 appointments. The data comes from all [place] treatment facilities. Appointment Date/Time Appointment Type Appointme nt Facility Name Sep 07, 2024 12:15 PM AMBULATORY - [facility]ICINE [facility] Sep 17, 2024 02:00 PM AMBULATORY - REHAB MEDICIN E [facility] Oct 08, 2024 03:00 PM AMBULATORY - REHAB MEDICIN E [facility] Oct 16, 2024 03:00 PM AMBULATORY - REHAB MEDICIN E [facility] Immunizations: All administered on the encounter date This section contains immunizations associated to the Encounter. Immunization Series Date Issued Reaction Comments INFLUENZA, SPLIT VIRUS, TRIVALENT, PF Aug 21, 2 024 Social History: Smoking Status (Most current) and Tobacco Use (All prior to encounter date) This section includes the most current, and the historical, smoking and tobacco- related health factors from the [place] facility where the Encounter took place. Current Smoking Status This section includes the most current smoking, or tobacco-related health factor, from the [place] facility where the Encounter took place. Date/Time Current Smoking Status Comment Facil ity Apr 26, 2024 09:30 AM VA-TOBACCO FORMER USER [facility] Tobacco Use History This section includes a history of the smoking, or tobacco-related health factors, that were collected on or before the date of the Encounter. The data comes from the [facility] where the Encounter took place. Date/Time Smoking Status/Tobacco Use Comment F acility Apr 26, 2024 09:30 AM VA-TOBACCO QUIT 1 TO < 5 YRS [facility] Apr 21, 2023 11:00 AM VA-TOBACCO NEVER USED [facility] Aug 05, 2021 09:04 AM VA-TOBACCO FORMER USER [facility] Aug 05, 2021 09:04 AM VA-TOBACCO QUIT 5 TO < 15 YRS [facility] Jul 03, 2020 08:45 AM VA-TOBACCO FORMER USER [facility] Jul 03, 2020 08:45 AM VA-TOBACCO QUIT 5 TO < 15 YRS [facility] Dec 20, 2005 03:58 PM LIFETIME NON-TOBACCO USER [facility] Encounter Notes: All associated encounter notes This section contains the clinical notes associated to the Encounter. Date/Time Encounter Note(s) Provider Source Aug 21, 2024 11:20 AM NURSING IMMUNIZATION NOTE: LOCAL TITLE: IMMUNIZATION AND VACCINATION NOTE STANDARD TITLE: NURSING IMMUNIZATION NOTE DATE OF NOTE: AUG 21, 2024@11:20 ENTRY DATE: AUG 21, 2024@11:20:11 AUTHOR: ISABELLA ROBERSON COSIGNER: URGENCY: STATUS: COMPLETED *Immunizations No INFLUENZA Immunizations on file within 1Y. ADMINISTERED Immunization Series Date Facility Reaction Info COVID-19 (MODERNA), MRNA, LNP-S,* 1 12/26/2020 [facility] <C> COVID-19 (MODERNA), MRNA, LNP-S,* 2 01/23/2021 [facility] <C> COVID-19 (MODERNA), MRNA, LNP-S,* 3 09/17/2021 [facility] <C> CONTRAINDICATED No data available REFUSED ======= Immunization Date Facility Info COVID-19 (MODERNA), MRNA, LNP-S,* 04/26/2024 [facility]* <I> <C> See the Detailed Immunizations Health Summary Component[DIM] for Comments <I> See the Detailed Immunizations Health Summary Component[DIM] for Additional Information * Value is truncated; see the Detailed Immunizations Health Summary Component[DIM] for complete text No FLU,[place] DOS Immunizations on file within 1Y. Recorded Pneumococcal Vaccinations Information: Reminder Term: VA-PNEUMOC PPSV23 IMMUNIZATION Immunization: PNEUMOCOCCAL POLYSACCHARIDE PPV23 09/19/2019@13:00 Reminder Term: VA-PNEUMOC PCV IMMUNIZATION (ALL CONJUGATE) Immunization: PNEUMOCOCCAL CONJUGATE PCV20, POLYSACCHARIDE [id number] CONJUGATE, ADJUVANT, PF 07/01/2022@15:44:26 No TD-ADULT Immunizations on file within 10Y. TDAP given on 04/21/23 Date of last Zoster Vaccine unknown Influenza Vaccine Influenza, Trivalent, Preservative Free (Fluarix-Syringe) Administered: INFLUENZA, SPLIT VIRUS, TRIVALENT, PF Date Administered: Aug 21, 2024 11:15 Quality Control Head: Glassful Lot: [id number] Exp Date: Apr 01, 2025 [facility]: [phone] Admin Route/Site: INTRAMUSCULAR/LEFT DELTOID Dosage: 0.5mL Vaccine Information Statement(s): INFLUENZA(FLU) VACC(INACTIVATED OR RECOMBINANT)VIS May 08, 2021 ([place]) Order By: Policy Administered By: Isabella Roberson The Influenza Vaccine Information Statement (VIS) was reviewed with the patient/caregiver which lists the benefits and risks of the vaccine and the risks of not receiving the Influenza vaccine. The patient/caregiver denied any prior severe reaction to this vaccine or its components or a severe allergic reaction, such as anaphylaxis, to any vaccine or any injectable therapy. The patient/caregiver gave verbal consent to receive the vaccine. /fredy/ ISABELLA ROBERSON RN Signed: 08/21/2024 11:24 ISABELLA ROBERSON [facility]
--- OUTSIDE RECORDS SUMMARY | 2024-09-15 21:05 | XMS_ITS | Encounter Summary ---
Author Name [facility] [place] Address [address] [place] [address] Care Team Providers Care Agriculture Laboratory Technician Name Role Phone ANG ARMANDO Primary [...] SERVICE SOV RET UNDER Nov 03, 2020 [id number] MELLOLISA SHAILESH PATIENT ANTHEM [place] POINT OF SERVICE SOV ACTIV E SELEC TCAR Oct 03, 2018 [id number] LISA SARKAR PATIENT [employer] OF [place] POINT OF SERVICE SOV RET UNDER 65 DESTINY Nov 03, 2020 [id number] LISA SARKAR PATIENT [employer] POINT OF SERVICE SOV ACTIV E SELEC TCAR Oct 03, 2018 [id number] LISA SARKAR PATIENT [employer] POINT OF SERVICE SOV RET UNDER 65 DESTINY Oct 03, 2018 [id number] LISA SARKAR PATIENT [employer] ([id number]) PRESCRIPT ION [facility] NT Oct 03, 2018 [id number] [phone] LISA SARKAR PATIENT Selected Encounter This section includes the information on record at [place] for the Encounter. Date/Time Encounter Type Encounter Description Reason Pro vider Source Jun 26, 2024 02:22 PM Outpatient Encounter ADMIN PAT ACTIVTIES (MASNONCT) [...] 20 appointments. The data comes from all [place] treatment facilities. Appointment Date/Time Appointment Type Appointme nt Facility Name Jul 17, 2024 03:00 PM AM[place] [place] [facility] Jul 18, 2024 11:30 AM AM[facility] [place] [facility] Jul 23, 2024 03:00 PM AM[facility] [place] [facility] Aug 21, 2024 11:00 AM AMBULATORY - MEDICINE [facility] Aug 21, 2024 11:15 AM AMBULATORY - MEDICINE [facility] Sep 07, 2024 12:15 PM AMBULATORY - MEDICINE [facility] Sep 17, 2024 02:00 PM AM[facility] [place] [facility] Oct 08, 2024 03:00 PM AM[place] [facility] Oct 16, 2024 03:00 PM AMBULAT[facility] [place] [facility] Encounter Notes: All associated encounter notes This section contains the clinical notes associated to the Encounter. Date/Time Encounter Note(s) Provider Source Jun 26, 2024 02:22 PM ADMINISTRATIVE NOT E: LOCAL TITLE: Has Admin Note STANDARD TITLE: ADMINISTRATIVE NOTE DATE OF NOTE: JUN 26, 2024@14:22 ENTRY DATE: JUN 26, 2024@14:22:23 AUTHOR: CALEB DELCID EXP COSIGNER: URGENCY: STATUS: COMPLETED Clinic Name:eye called, he stated the rx was off and was on hold and it is ok to order his new glasses now. [phone] thank you /es/ CALEB DELCID AMSA Signed: 06/26/2024 14:25 Receipt Acknowledged By: 06/26/2024 15:04 /es/ CALEB [facility]
--- OUTSIDE RECORDS SUMMARY | 2024-09-15 21:05 | XMS_ITS | Encounter Summary ---
Author Name [facility] [place] [facility] [place] Address [address] [place] [address] Care Team Providers Care Activated Sludge Attendant Name Role Phone ANG ARMANDO Primary Care [...] Relationship to Policy [place] ANTHEM [employer] POINT OF SERVICE SOV RET UNDER Nov 03, 2020 [id number] MELLOLISA SHAILESH PATIENT ANTHEM [place] POINT OF SERVICE SOV ACTIV E SELEC TCAR Oct 03, 2018 [id number] LISA SARKAR PATIENT BC[place] OF [place] POINT OF SERVICE SOV RET UNDER 65 DESTINY Nov 03, 2020 [id number] LISA SARKAR PATIENT [employer] POINT OF SERVICE SOV ACTIV E SELEC TCAR Oct 03, 2018 [id number] LISA SARKAR PATIENT [employer] POINT OF SERVICE SOV RET UNDER 65 DESTINY Oct 03, 2018 [id number] LISA SARKAR PATIENT [employer] ([id number]) [facility] Oct 03, 2018 Q54A [id number] LISA SARKAR PATIENT Selected Encounter This section includes the information on record at [place] for the Encounter. Date/Time Encounter Type Encounter Description Reason Pro vider Source May 30, 2024 09:57 AM Outpatient Encounter ADMIN PAT ACTIVTIES (MASNONCT) [...] 20 appointments. The data comes from all [place] treatment facilities. Appointment Date/Time Appointment Type Appointme nt Facility Name Jun 05, 2024 02:00 PM [facility] [place] [facility] Jun 06, 2024 02:59 PM AM[place]ORY - N[place] [facility] Jun 18, 2024 01:00 PM [place] [facility] Jun 21, 2024 09:30 AM AM[place] [facility] Jul 17, 2024 03:00 PM AM[place] [facility] Jul 18, 2024 11:30 AM [place] [facility] Jul 23, 2024 03:00 PM AM[place] [place] [facility] Aug 21, 2024 11:00 AM AMBULATORY - MEDICINE [facility] Aug 21, 2024 11:15 AM AMBULATORY - MEDICINE [facility] Sep 07, 2024 12:15 PM AMBULATORY - MEDICINE [facility] Sep 17, 2024 02:00 PM AM[place] [facility] Oct 08, 2024 03:00 PM AM[place]UL[place] [facility] Oct 16, 2024 03:00 PM AMBULATORY - [place] [facility] Encounter Notes: All associated encounter notes This section contains the clinical notes associated to the Encounter. Date/Time Encounter Note(s) Provider Source May 30, 2024 09:57 AM ADMINISTRATIVE NOT E: LOCAL TITLE: CCC: SCHEDULING ADMINISTRATION STANDARD TITLE: ADMINISTRATIVE NOTE DATE OF NOTE: MAY 30, 2024@09:57:49 ENTRY DATE: MAY 30, 2024@09:57:49 AUTHOR: PADMINI SIEGEL COSIGNER: URGENCY: STATUS: COMPLETED CCC: SCHEDULING ADMINISTRATION Has ADDENDA Patient Demographics Patient Name: PITER SARKAR Patient Primary Phone: [phone] Patient Primary [address]: [address] [place] [address] Patient : 1970 Patient Age: 53 Call Back Number: [phone] Caller/Recipient Relation to Patient: Self Administrative Administrative Note Reason: [facility] Act Administrative Note Comments: [facility] is looking for a new referral for Orthopedics at [facility]. [facility] had recent MRI which shows will need shoulder surgery and will need to be scheduled with [facility] in July to be scheduled for surgery in September. denies triage at this time. IMPORTANT: This note was created by [facility] Clinical Contact Center staff. Please do not alert the staff member by adding them as a signer for future communications. Alerts are not monitored by this user. /fredy/ PADMINI SIEGEL Signed: 05/30/2024 09:57 Receipt Acknowledged By: 05/30/2024 11:13 /fredy/ MIKAEL LEIVA LPN 06/01/2024 10:53 /fredy/ MACKENZIE BEASLEY Registered Nurse 05/30/2024 ADDENDUM STATUS: COMPLETED Will request notes /dafne LEIVA LPN Signed: 05/30/2024 11:13 PADMINI SIEGEL [facility]
--- OUTSIDE RECORDS SUMMARY | 2024-09-15 21:05 | XMS_ITS | Encounter Summary ---
Author Name [facility] [place] Organization [facility] [place] Address [address] [place] [address] Care Team Providers Care Middle Stitcher Name Role Phone ANG ARMANDO Primary Care [...] SERVICE SOV RET UNDER Nov 03, 2020 [id number] [phone] MELLOLISA SHAILESH PATIENT ANTHEM [employer] POINT OF SERVICE SOV ACTIV E SELEC TCAR Oct 03, 2018 [id number] SARKARLISA SHAILESH PATIENT BC[place] OF [place] POINT OF SERVICE SOV RET UNDER 65 DESTINY Nov 03, 2020 [id number] MELLOLISA SHAILESH PATIENT [employer] POINT OF SERVICE SOV ACTIV E SELEC TCAR Oct 03, 2018 [id number] LISA SARKAR PATIENT [employer] POINT OF SERVICE SOV RET UNDER 65 DESTINY Oct 03, 2018 [id number] LISA SARKAR PATIENT [employer] ([id number]) PRESCRIPT ION [facility] Oct 03, 2018 Q54A [id number] [phone] LISA SARKAR PATIENT Selected Encounter This section includes the information on record at [place] for the Encounter. Date/Time Encounter Type Encounter Description Reason Provider Source Jul 23, 2024 03:00 PM NEUROMUSCULAR REEDUCATION PHYSICAL THERAPY ICD-10-CM M67.919 Unsp disorder of synovium and tendon, unspecified shoulder MICUCCI,RINKU IHE Encounter Template Text not used by [facility] Assessments - Encounter Diagnoses This section includes the primary and secondary diagnoses documented for the Encounter. Date/Time Primary/Secondary Diagnosis Diagnosis Name Provider Source Jul 24, 2024 07:09 AM PRIMARY Unsp disorder of synovium and tendon, unspecified shoulder [facility]I,[facility] Jul 24, 2024 07:09 AM SECONDARY Cervicalgia [facility]I,[facility] Plan of Treatment: Future Appointments (+ 6 months) and Future Tests (+/- 45 days) The Plan of Treatment section includes future care activities for the patient from all [place] treatmentfacilities. This section includes future appointments and future orders which are active, pending or scheduled. Future Appointments This section includes appointments that were scheduled to occur 6 months from the date of the Encounter, up to a maximum of 20 appointments. The data comes from all [place] treatment facilities. Appointment Date/Time Appointment Type Appointme nt Facility Name Aug 21, 2024 11:00 AM AMBULATORY - MEDICINE [facility] Aug 21, 2024 11:15 AM AMBULATORY - MEDICINE [facility] Sep 07, 2024 12:15 PM AMBULATORY - MEDICINE [facility] Sep 17, 2024 02:00 PM AM[place] [place] [facility] Oct 08, 2024 03:00 PM AM[facility] [place] [facility] Oct 16, 2024 03:00 PM AM[facility] [place] [facility] Social History: Smoking Status (Most current) and Tobacco Use (All prior to encounter date) This section includes the most current, and the historical, smoking and tobacco- related health factors from the [place] facility where the Encounter took place. Current Smoking Status This section includes the most current smoking, or tobacco-related health factor, from the [place] facility where the Encounter took place. Date/Time Current Smoking Status Comment Facil ity Apr 26, 2024 09:30 AM VA-TOBACCO FORMER USER [facility] Tobacco Use History This section includes a history of the smoking, or tobacco-related health factors, that were collected on or before the date of the Encounter. The data comes from the [place] facility where the Encounter took place. Date/Time Smoking Status/Tobacco Use Comment F acility Apr 26, 2024 09:30 AM VA-TOBACCO QUIT 1 TO < 5 YRS [facility] Apr 21, 2023 11:00 AM VA-TOBACCO NEVER USED [facility] Aug 05, 2021 09:04 AM VA-TOBACCO FORMER USER [facility] Aug 05, 2021 09:04 AM VA-TOBACCO QUIT 5 TO < 15 YRS [facility] Jul 03, 2020 08:45 AM VA-TOBACCO FORMER USER [facility] Jul 03, 2020 08:45 AM VA-TOBACCO QUIT 5 TO < 15 YRS [facility] Dec 20, 2005 03:58 PM LIFETIME NON-TOBACCO USER [facility] Encounter Notes: All associated encounter notes This section contains the clinical notes associated to the Encounter. Date/Time Encounter Note(s) Provider Source Jul 23, 2024 02:48 PM PHYSICAL THERAPY N OTE: LOCAL TITLE: Physical Therapy Note STANDARD TITLE: PHYSICAL THERAPY NOTE DATE OF NOTE: JUL 23, 2024@14:48 ENTRY DATE: JUL 23, 2024@14:48:43 AUTHOR: RINKU LANE EXP COSIGNER: URGENCY: STATUS: COMPLETED Diagnosis: LBP, bilat hip pain worsening, cervicalgia, R shoulder pain/ RC tear. Referred by: Eli BUNCH Referred for: Evaluate and treat Date of Onset: Chronic Start of Physical Therapy plan of care: 07/10/21 Visit # 33 S. The dry needling definately helped last week- R shoulder still sore & R side of neck. Back not feeling too bad today. O. therex NUSTEP L4, 8 mins c & shoulder AROM Manual Therapy Supported crook supine Occipital release, manual traction, 1st rib mobilization bilat. STM bilat UT/ scalane TP Dry Needling R upper traps (prone) x 2, R C5 multifidi R shoulder ant delt, medial delt. (sitting) c/o post tx that the neck & shoulder feel somewhat better. Wants to see what results with just DN, so declined other options for tx today. ========= Assessment/Prognosis/Rehabilit ation Potential: 51 y/o know [...] PRN. Short Term Goals: 4-6 weeks 1. [place] to be I with shoulder strengthening program. MET Director Dance Goals: 8-16 weeks 1. to have strength WFL. Total Time: 50 Therex 10 Manual Therapy 72364 20 Thera Activity [address] [place] [address] Hot/Cold Pack 97723 Estim 87846 Ultrasound 61846 Ortho fit Iontophoresis Subs eval SHockwave therapy Dry Needling 3+ muscles 20 The above results and recommendations were explained [...] /fredy/ RINKU LANE Physical Therapist, licenced in [place] Signed: 07/24/2024 07:[address] [facility]
--- OUTSIDE RECORDS SUMMARY | 2024-09-15 21:06 | XMS_ITS | Continuity of Care Document ---
Author Organization [facility] Address [address] [place] [address] Care Team Providers Care Chaser Tar Name Role Phone RAJINDER MCCABE Primary Care Physician Encounter [facility] [facility] NBR [id number] Date(s): 07/01/23 - 07/01/23 [facility] [address], [place] [address] Encounter Diagnosis Lateral epicondylitis of both elbows(Discharge Diagnosis) - 07/01/23 Lateral epicondylitis, left elbow(Discharge Diagnosis) - 07/01/23 Discharge Disposition: Home or Self Care Attending Physician: Bryce Goodson MD Allergies, Adverse Reactions, Alerts Substance Reaction Severity Status statins Unknown Unknown Active Multivitamins Unknown Unknown Active Assessment and Plan Future Appointments Medications No Known Medications Problem List Condition Confirmation Course Effective Dates Status H ealth Status Informant Lateral epicondylitis of both elbows Confirmed Active Vital Signs Most recent to oldest [Reference Range]: 1 Peripheral Pulse Rate [60-100 bpm] 64 bp m (07/01/23 11:09 AM) Blood Pressure [90-140/60-90 mmHg] 122/7 8mmHg (07/01/23 11:09 AM) Weight 95.71 kg (07/01/23 11:09 AM) Weight Measured (lbs) 211.004 lb (07/01/23 11:09 AM) Height 185.42 cm (07/01/23 11:09 AM) Height/Length Measured (inches) 73 inch (07/01/23 11:09 AM) BSA Measured 2.22 m2 (07/01/23 11:09 AM) Body Mass Index 27.84 kg/m2 (07/01/23 11:09 AM) Social History Social History Type Response Tobacco Never tobacco user T obacco Use:. Sex Male Physician Outpatient Note * Bryce Goodson MD: PERFORM Event Display: Office Clinic Note Physician Authored Date: [id number] PITER SARKAR :1970 Age:52 years Sex:Male Visit Date:07/01/2023 Primary Care Physician: RAJINDER MCCABE Chief Complaint bilateral elbow pain History of Present Illness Patient returns today, in the last visit I diagnosed with??epicondylitis,??I??gave him a wrist splint??and eccentric exercises??he??has worn the splint for just over 3 weeks and has noticed some improvement he still having pain but definitely better than it was. Physical Exam Vitals & Measurements HR:??64??(Peripheral)?? BP:??122/78?? SpO2:??99%?? HT:??185.42??cm?? WT:??95.71??kg?? BMI:??27.84?? Pain Score:??2?? BSA:??2.22?? Right elbow shows a full range of motio??there is mild tenderness over the epicondyle mild pain with resisted wrist tension, mild pain with resisted long finger extension, no elbow instability. Assessment/Plan 1.??Lateral epicondylitis of both elbows??M77.11 Patient with epicondylitis its improved??with a brace and eccentric strengthening??now to have the patient??add some anti- inflammatory??topically,??wear the brace for another month or so??and at that point if he satisfied with the condition of the elbow??he will wean off the brace get back to his full activities??if he still having significant pain he will let me know and I will get an MRI to check the status of the extensor??tendons and potentially consider??surgical??repair. Lateral epicondylitis, left elbow??M77.12 Problem List/Past Medical History Ongoing Lateral epicondylitis of both elbows Historical No qualifying data Medications No active medications Allergies Multivitamins??(Unknown) statins??(Unknown) Social History Electronic Cigarette/Vaping Electronic Cigarette Use: Never. Tobacco Never tobacco user Tobacco Use:. Electronically Signed on 07/01/23 11:55 AM Bryce Goodson MD Patient Care team information Care Team Personnel Name: RAJINDER MCCABE Position: No Access Member Role: Primary Care Physician Address: Address: [address] [address]- Care Team Related Persons Name: SKYLA SARKAR Address: Home [address] [place] [phone] [facility]
--- OUTSIDE RECORDS SUMMARY | 2024-09-15 21:06 | XMS_ITS | Clinical Summary ---
[place] [address] Care Team Providers Care Pole Setter Name Role Phone Leeroy Ramirez MD Primary Care Provider [phone] Allergies No known active allergies Social History Tobacco Use Types Packs/Day Years Used Date Smoking Tobacco: Never Assessed Sex and Gender Information Value Date Recorded Sex Assigned at Not on file Gender Identity Not on file Sexual Orientation Not on file Plan of Treatment Health Maintenance Due Date Last Done Comments CT Colonography 1970 Colonoscopy 1970 Colorectal Cancer Screening 1970 FIT DNA 1970 FIT 1970 Sigmoidoscopy (10 year) with FIT yearly 1970 Sigmoidoscopy 1970 HIV screen 1988 Hepatitis C Screening 1988 Lipid Screening 1988 Hepatitis B vaccine (0-59 yrs) (1) 1989 Tetanus/Diphtheria/Pertussis Vaccines (1 - Tdap) 10/28 Zoster vaccine (1 of 2) 2020 Covid-19 Vaccine (1 - 2023- season) 2024 Influenza (Flu) vaccine (1 o f 1 - Influenza standard series) 06/03/2024 Care Teams Pole Setter Relationship Specialty Start Date End Date Leeroy Ramirez MD [address] [place] [address] PCP - General 08/25/10
--- OUTSIDE RECORDS SUMMARY | 2024-09-15 21:06 | XMS_ITS ---
Author Name [facility] [place] [facility] [place] [facility] [place] Address [address] [place] [address] Care Team Providers Care Brake Repairer Railroad Name Role Phone UYEN TALAMANTES Primary Care Provider Unavailab le Insurance Providers: [...] Relationship to Policy [place] ANTHEM [employer] [place] POINT OF SERVICE SOV RET UNDER Nov 03, 2020 [id number] MELLOLISA SHAILESH PATIENT ANTHEM [employer] POINT OF SERVICE SOV ACTIV E SELEC TCAR Oct 03, 2018 [id number] [phone] LISA SARKAR SHAILESH PATIENT BC[place] POINT OF SERVICE SOV RET UNDER 65 DESTINY Nov 03, 2020 [id number] MELLOLISA SHAILESH PATIENT [place] POINT OF SERVICE SOV ACTIV E SELEC TCAR Oct 03, 2018 [id number] 00 LISA SARKAR PATIENT BS [facility] POINT OF SERVICE SOV RET UNDER 65 DESTINY Oct 03, 2018 [id number] LISA SARKAR PATIENT [employer] ([id number]) PRESCRIPT [facility]ON [facility] Oct 03, 2018 [id number] LISA SARKAR PATIENT Selected Encounter This section includes the information on record at [place] for the Encounter. Date/Time Encounter Type Encounter Description Reason Provider Source Aug 22, 2024 09:46 AM Outpatient Encounter DERMATOLOGY ICD-10-CM L82.1 Other seborrheic keratosis VIVIANA BOYLE Betty Encounter Template Text not used by [place] Assessments - Encounter Diagnoses This section includes the primary and secondary diagnoses documented for the Encounter. Date/Time Primary/Secondary Diagnosis Diagnosis Name Provider Source Sep 02, 2024 08:54 AM PRIMARY Other seborrheic keratosis VIVIANA BOYLE [facility] Plan of Treatment: Future Appointments (+ [...] 12:15 PM AMBULATORY - MEDICINE [facility] Sep 17, 2024 02:00 PM AMBULATORY - REHAB MEDICIN E [facility] Oct 08, 2024 03:00 PM AMBULATORY - REHAB MEDICIN E [facility] Oct 16, 2024 03:00 PM AMBULATORY - REHAB MEDICIN E [facility] Encounter Notes: All associated encounter notes This section contains the clinical notes associated to the Encounter. Date/Time Encounter Note(s) Provider Source Aug 22, 2024 09:46 AM TELEIMAGING REPORT : LOCAL TITLE: CONSULT Teledermatology Imaging Report STANDARD TITLE: TELEIMAGING REPORT DATE OF NOTE: AUG 22, 2024@09:46 ENTRY DATE: AUG 22, 2024@09:47:11 AUTHOR: VIVIANA BOYLE EXP COSIGNER: URGENCY: STATUS: COMPLETED HISTORY: 53 yo male with unknown duration itchy mole on his left back. Recent growth in size as well. No prior treatment. Reports FH of melanoma in father and grandfather. OVERALL CONSULT/IMAGE QUALITY: Fully satisfactory EXAM: LEFT back: solitary ~ 6 mm waxy, brown papule with fissures. No pigment network. IMPRESSION BASED ON IMAGES AND INFORMATION REVIEWED: PROBLEM A: Diagnosis: Seborrheic Keratosis: a common benign growth. It is not a mole. No treatment required. RECOMMENDATIONS FOR REFERRING PROVIDER: PROBLEM A: Liquid nitrogen cryotherapy: No treatment is necessary, however if itch is problematic, then PC could treat with LN2. Skin Care recommendations: Trial Ammonium lactate 12% lotion to decrease size/scale, itching (but won't remove it) TIME-SENSITIVITY: No time-sensitive, urgent, emergent or life-threatening results. RECOMMENDED FOLLOW-UP (Include Clinically Indicated Date (JAIME)): Primary Care follow up Nature/Type of Follow-up: if LN2 is requested for itching symptoms JAIME: Cumulative time of review and management: 5 minutes or more /fredy/ VIVIANA BOYLE DERMATOLOGY ATTENDING PHYSICIAN Signed: 08/22/2024 09:58 Receipt Acknowledged By: 08/24/2024 11:38 /fredy/ Uyen Talamantes, LATRELL, PICKLE MAKER, PROCESS AREA SUPERVISOR-C Nurse Practitioner VIVIANA BOYLE [facility]
--- OUTSIDE RECORDS SUMMARY | 2024-09-15 21:06 | XMS_ITS | Encounter Summary ---
Author Organization Formerly [facility] Address [facility] [place] [address] Care Team Providers Care Comb Fixer Name Role Phone Leeroy Ramirez MD Primary Care Provider [phone] Reason for Visit * Reason Comments Chest Pain Encounter Details Date Type Department Care Team (Latest Contact Info) Description 10/22/2019 3:00 PM EST Ext Surgery or Single Event Cardiology at [address] [id number] Robi Reyes MD [facility] [address] [address] Chest pain, unspecified type Social History Tobacco Use Types Packs/Day Years Used Date Smoking Tobacco: Never Assessed Sex and Gender Information Value Date Recorded Sex Assigned at Not on file Gender Identity Not on file Sexual Orientation Not on file documented as of this encounter Procedure Notes * Robi Reyes MD - 10/22/2019 3:00 PM EST Exercise Stress Test- Final Report Hayden Vo : 1970 [facility] Primary Physician: Leeroy Ramirez MD Indication: chest pain Date: 10/23/2019Referring: Francis Details: Medication: none pertinent Risk Factors: Cholesterol Resting EKG: nsr Resting HR 56; Resting BP 116/70 Summary: Max Exercise: Time: 15 mins Stage: V Ashutosh METs: 14.86 Max HR: > 220 (representing > 100% of MPHR) Max BP: 142/67 RPP: > 30k HR Deceleration: normal Ischemia?: none Arrhythmias?: none Reason for Termination: dyspnea Impression: Low probability, very low risk (DTS +15). Exceptional exercise capacity. Peak HR difficult to ascertain as physiologic R-R variability exists at that rate. BP was difficult to capture during the test Electronically Signed: Robi Reyes MD, 10/23/2019 11:49 AM documented in this encounter Plan of Treatment Not on file documented as of this encounter Procedures Procedure Name Priority Date/Time Associated Diagnosis Comments ECG SCAN 10/22/2019 12:00 AM EST documented in this encounter Results * SCAN DOC: ECG (10/22/2019 12:00 AM EST) Narrative 10/22/2019 12:00 AM EST Ordered by an unspecified provider. Scanning Provider MEDIA MGR SCAN EXT O RDR/RSLT documented in this encounter Visit Diagnoses Diagnosis Chest pain, unspecified type documented in this encounter Care Teams Comb Fixer Relationship Specialty Start Date End Date Leeroy Ramirez MD [address] [place] [address] PCP - General 08/25/10 documented as of this encounter
--- OUTSIDE RECORDS SUMMARY | 2024-09-15 21:06 | XMS_ITS | Continuity of Care Document ---
Author Organization [facility] Ambulatory Clinics Address [address] [place] [address] Care Team Providers Care Lithograph Press Feeder Name Role Phone RAJINDER MCCABE Betty Primary Care Physician Encounter [facility] NBR [id number] Date(s): 05/15/24 - 05/15/24 [facility] Ambulatory [facility] [address] [place], [place] [address] Encounter Diagnosis Rotator cuff tear, right(Discharge Diagnosis) - 05/15/24 Discharge Disposition: Home or Self Care Attending Physician: Bryce Goodson MD Referring Physician: ROBERTO TRISTAN Allergies, Adverse Reactions, Alerts Substance Reaction Severity Status Lactose Unknown Active Multivitamins hives Moderate Active Assessment and Plan Extracted from: Title:Office Visit Note Author:Bryce Goodson MD Date:05/15/24 1.??Rotator cuff tear, right ??M75.101 ??Patient with a small full-thickness rotator cuff tear discussed treatment options at length with the patient having already failed physical therapy with continued symptoms we discussed doing a rotator cuff repair??and evaluation the long head of the biceps,??patient would like to proceed but he cannot take time off from work currently??so he is going to come back in 2 months??and then we will schedule it for this winter,??by that time I will??be able to review the images on my own to be sure I agree with the radiologist reading. Orders: XR Shoulder Complete 2+ Views Right, 05/15/24, Routine, Reason: Right shoulder pain, Transport Mode: Ambulatory, Right shoulder pain Future Scheduled Tests Radiology* XR Shoulder Complete 2+ Views Right 05/15/24 Medications atorvastatin 20 mg oral tablet 20 mg = 1 tab, Oral, Daily, # 30 tab, 0 Refill(s) Start Date: 07/13/23 Status: Ordered Metamucil Titus Burst Smooth Texture 3.4 g/5.8 g oral powder for reconstitution 5 mL, Oral, TID, PRN as needed for constipation, # 300 g, 0 Refill(s) Start Date: 07/13/23 Status: Ordered scopolamine 1 mg/72 hr transdermal film, extended release 1 film, Topical, every 72 hr, PRN nausea/vomiting, # 4 EA, 0 Refill(s) Start Date: 07/13/23 Status: Ordered Problem List Condition Confirmation Course Effective Dates Status Health Status Informant Back pain Confirmed Active Dyslipidemia Confirmed Active LOWER ELWHA - Hard of hearing Confirmed Active Hypercholesterolemia Confirmed Active Lateral epicondylitis of both elbows Confirmed Active PTSD - Post-traumatic stress disorder Confirmed Active Rotator cuff tear, right Confirmed Active Sessile serrated polyp of colon Confirmed Active Subjective tinnitus Confirmed Active Procedures Procedure Date Related Diagnosis Body Site Status Colonoscopy Biopsy 1 07/20/23 Comp leted Colonoscopy Completed Meniscal repair Completed 1auto-populated from documented surgical case Vital Signs Most recent to oldest [Reference Range]: 1 Peripheral Pulse Rate [60-100 bpm] 74 bp m (05/15/24 10:13 AM) Blood Pressure [90-140/60-90 mmHg] 116/6 0mmHg (05/15/24 10:13 AM) Mean Arterial Pressure, Cuff [65-140 mmH g] 79 mmHg (05/15/24 10:13 AM) Weight 114.31 kg (05/15/24 10:13 AM) Weight Measured (lbs) 252.01 lb (05/15/24 10:13 AM) Weight Dosing 114.310 kg (05/15/24 10:13 AM) Height 185.42 cm (05/15/24 10:13 AM) Height/Length Measured (inches) 73 inch (05/15/24 10:13 AM) BSA Measured 2.43 m2 (05/15/24 10:13 AM) Body Mass Index 33.25 kg/m2 (05/15/24 10:13 AM) Social History Social History Type Response Tobacco Never tobacco user T obacco Use:. Sex Male Physician Outpatient Note * Bryce Goodson MD: PERFORM Event Display: Office Clinic Note Physician Authored Date: [id number] PITER SARKAR :1970 Age:53 years Sex:Male Visit Date:05/15/2024 Primary Care Physician: RAJINDER MCCABE Chief Complaint OPNP- Right shoulder pain History of Present Illness Patient returns today with a new complaint of right shoulder pain, going the patient has been present for??several months,??he was [facility] the [place] with physical [facility]??he went regularly and had ahome program but unfortunately the pain did not improve, the patient then had an MRI performed and he brings??in a report for review.?? According the patient he has pain with lifting overhead use, hehas a lot of pain when he puts his arm behind his back.?? He localizes all the pain to the lateral??deltoid area. Physical Exam Vitals & Measurements HR:??74??(Peripheral)?? BP:??116/60?? SpO2:??95%?? HT:??185.42??cm?? WT:??114.31??kg?? BMI:??33.25?? Pain Score:??3?? BSA:??2.43?? Review of studies:??MRI the patient's shoulder??unfortunately is not available for review but I do of report which showed a small full-thickness tear of the anterior aspect of the supraspinatus. ?? Both shoulders are examined. Range of motion of the shoulder is examined in the forward elevation, abduction, external rotation and internal rotation behind the back planes. External rotation is assessed both with the arm in neutral adduction and at 90 degrees of abduction. Similarly internal rotation is performed at 90 degrees of abduction and is compared with the contralateral side. Neer and Jensen impingement signs are examined. Strength is assessed in forward elevation, abduction, externaland internal rotation planes.?Cross-arm adduction test is examined. The shoulder is systematically palpated anteriorlyin the region of the coracoid process, the anterior joint line and bicipital groove. The AC joint is palpated. The greater tuberosity is palpated. The posterior joint line is palpated. Vick and active compression tests are performed. The supraspinatus and infraspinatus fossa are examined for signs of atrophy. Stability is test using the apprehension, relocation and Jerk Test. ?? Exam the right shoulder shows 170 degrees forward flexion 35 degrees of external Tatian, has positive impingement signs, there is pain with supraspinatus isolation, 4+ out of 5 strength abduction,5-/5 strength to rotation. Assessment/Plan 1.??Rotator cuff tear, right??M75.101 ??Patient with a small full-thickness rotator cuff tear discussed treatment options at length with the patient having already failed physical therapy with continued symptoms we discussed doing a rotator cuff repair??and evaluation the long head of the biceps,??patient would like to proceed but he cannot take time off from work currently??so he is going to come back in 2 months??and then we will schedule it for this winter,??by that time I will??be able to review the images on my own to be sure I agree with the radiologist reading. Orders: XR Shoulder Complete 2+ Views Right, 05/15/24, Routine, Reason: Right shoulder pain, Transport Mode: Ambulatory, Right shoulder pain Problem List/Past Medical History Ongoing Back pain Dyslipidemia LOWER ELWHA - Hard of hearing Hypercholesterolemia Lateral epicondylitis of both elbows PTSD - Post-traumatic stress disorder Rotator cuff tear, right Sessile serrated polyp of colon Subjective tinnitus Historical Colonic polyp Procedure/Surgical History ???Colonoscopy Biopsy (07/20/2023)???Colonoscopy???Meniscal repair Medications atorvastatin 20 mg oral tablet, 20 mg= 1 tab, Oral, Daily Metamucil Titus Burst Smooth Texture 3.4 g/5.8 g oral powder for reconstitution, 5 mL, Oral, TID, PRN scopolamine 1 mg/72 hr transdermal film, extended release, 1 film, Topical, every 72 hr, PRN Allergies Multivitamins??(hives) Lactose Social History Alcohol Never Electronic Cigarette/Vaping Electronic Cigarette Use: Never. Substance Use Never Tobacco Never tobacco user Tobacco Use:. Electronically Signed on 05/15/2024 10:46 EDT Bryce Goodson MD Patient Care team information Care Team Personnel Name: DEGE, RAJINDER E Position: No Access Member Role: Primary Care Physician Address: Address: [address] [address]- Care Team Related Persons Name: SKYLA SARKAR Address: Home [address] [place] [phone] [facility]
--- OUTSIDE RECORDS SUMMARY | 2024-09-15 21:06 | XMS_ITS | Continuity of Care Document ---
Author Organization [facility] Address [address] [place] [id number] Care Team Providers Care Slate Cutter Operator Name Role Phone RAJINDER MCCABE Primary Care Physician Encounter [facility] NBR [id number] Date(s): 05/20/23 - 05/20/[address] [address]- Discharge Disposition: Home or Self Care Attending Physician: Bryce Goodson MD, I Admitting Physician: Bryce Goodson MD, I Referring Physician: Bryce Goodson MD, I Assessment and Plan Future Appointments Problem List Condition Confirmation Course Effective Dates Status H ealth Status Informant Lateral epicondylitis of both elbows Confirmed Active Results Radiology Reports * Exam Date Time Procedure Performing Provider Status 05/20/23 10:50 AM XR Elbow Complete 3+ Views Right DomainUser, Generated; Auth (Verified) Notes: (XR Elbow Complete 3+ Views Right) Reason For Exam: right elbow pain XR Elbow Complete 3+ Views Right PROCEDURE INFORMATION: Exam: XR Right Elbow Exam date and time: 05/20/2023 10:45 AM Age: 52 years old Clinical indication: Pain in right elbow; Pain in right elbow; Additional info: Right elbow pain TECHNIQUE: Imaging protocol: Radiologic exam of the right elbow. Views: 3 or more views. COMPARISON: No relevant prior studies available. FINDINGS: Bones/joints: No acute bony injury or malalignment in the right elbow. Soft tissues: Calcification at the triceps tendon attachment site. IMPRESSION: No acute bony injury or malalignment in the right elbow. THIS DOCUMENT HAS BEEN ELECTRONICALLY SIGNED BY ASHUTOSH BOYD MD on 05/20/2023 11:29 AM Final Signed by: Ashutosh Boyd MD Signed (Electronic Signature): 05/20/2023 11:29 am * Exam Date Time Procedure Performing Provider Status 05/20/23 10:50 AM XR Elbow Complete 3+ Views Left DomainUser, Generated; Auth (Verified) Notes: (XR Elbow Complete 3+ Views Left) Reason For Exam: left elbow pain XR Elbow Complete 3+ Views Left PROCEDURE INFORMATION: Exam: XR Left Elbow Exam date and time: 05/20/2023 10:42 AM Age: 52 years old Clinical indication: Pain in left elbow; Pain in left elbow; Additional info: Left elbow pain TECHNIQUE: Imaging protocol: Radiologic exam of the left elbow. Views: 3 or more views. COMPARISON: MR SHOULDER LEFT WO CONTRAST 04/26/2022 1:56 PM FINDINGS: Bones/joints: No acute bony injury or malalignment in the left elbow. Soft tissues: Chronic medial epicondylitis. Calcification at the triceps tendon attachment site. IMPRESSION: No acute bony injury or malalignment in the left elbow. THIS DOCUMENT HAS BEEN ELECTRONICALLY SIGNED BY ASHUTOSH BOYD MD on 05/20/2023 11:27 AM Final Signed by: Ashutosh Boyd MD Signed (Electronic Signature): 05/20/2023 11:27 am Social History Social History Type Response Sex Male Patient Care team information Care Team Personnel Name: RAJINDER MCCABE Position: No Access Member Role: Primary Care Physician Address: Address: [address] [address] Care Team Related Persons Name: SKYLA SARKAR Address: Home [address] [place] [phone] [facility]
--- OUTSIDE RECORDS SUMMARY | 2024-09-15 21:06 | XMS_ITS | Continuity of Care Document ---
Author Organization [facility] Ambulatory Clinics Address [address] [place] [address] Care Team Providers Care Etl Analyst Name Role Phone RAJINDER MCCABE Primary Care Physician [phone] Encounter [facility] NBR [id number] Date(s): 04/26/23 - 04/26/23 [facility] Ambulatory Clinics [address] [place] [address] us Social History Social History Type Response Sex Male Patient Care team information Care Team Personnel Name: RAJINDER MCCABE Position: No Access Member Role: Primary Care Physician Address: Address: [address] [address] Care Team Related Persons Name: SKYLA SARKAR Address: Home [address] [place] [phone] [facility]
--- OUTSIDE RECORDS SUMMARY | 2024-09-15 21:06 | XMS_ITS | Continuity of Care Document ---
Author Organization [facility] Ambulatory Clinics Address [address] [place] [address] Care Team Providers Care Fish Boning Machine Feeder Name Role Phone HUMBLEBettyRAJINDER Primary Care Physician [phone] Encounter [facility] NBR [id number] Date(s): 08/15/23 - 08/15/23 [facility] Ambulatory Clinics [address] [place], [place] [address] Encounter Diagnosis Sessile serrated polyp of colon(Discharge Diagnosis) - 08/15/23 Discharge Disposition: Home or Self Care Attending Physician: Aislinn Lay APRN Allergies, Adverse Reactions, Alerts Substance Reaction Severity Status statins Unknown Unknown Active Multivitamins hives Moderate Active Lactose Unknown Active Functional Status 08/15/23 Recent Travel History No recent travel Medications atorvastatin 20 mg oral tablet 20 [...] Back pain Confirmed Active Dyslipidemia Confirmed Active RAMPART - Hard of hearing Confirmed Active Hypercholesterolemia Confirmed Active Lateral epicondylitis of both elbows Confirmed Active PTSD - Post-traumatic stress disorder Confirmed Active Sessile serrated polyp of colon Confirmed Active Subjective tinnitus Confirmed Active Procedures Procedure Date Related Diagnosis Body Site Status Colonoscopy Biopsy 1 07/20/23 Comp leted Colonoscopy Completed Meniscal repair Completed 1auto-populated from documented surgical case Vital Signs Most recent to oldest [Reference Range]: 1 Temperature Temporal Artery [36-38 Deg C ] 35.9 Deg C *LOW* (08/15/23 8:20 AM) Apical Heart Rate [60-100 bpm] 64 bpm (08/15/23 8:20 AM) Blood Pressure [90-140/60-90 mmHg] 128/6 8mmHg (08/15/23 8:20 AM) Mean Arterial Pressure, Cuff [70-110 mmH g] 88 mmHg (08/15/23 8:20 AM) Weight 98.6 kg (08/15/23 8:20 AM) Weight Measured (lbs) 217.376 lb (08/15/23 8:20 AM) Weight Dosing 98.600 kg (08/15/23 8:20 AM) Stanley Body Weight Calculated 79.9 kg (08/15/23 8:20 AM) Height 185.42 cm (08/15/23 8:20 AM) Height/Length Measured (inches) 73 inch (08/15/23 8:20 AM) Body Mass Index 28.68 kg/m2 (08/15/23 8:20 AM) Social History Social History Type Response Tobacco Never tobacco user T obacco Use:. Sex Male Physician Outpatient Note * Aislinn Lay APRN: PERFORM, MODIFY Event Display: Office Clinic Note Physician Authored Date: [id number] PITER SARKAR :1970 Age:52 years Sex:Male Visit Date:08/15/2023 Primary Care Physician: RAJINDER MCCABE Chief Complaint Follow-up colonoscopy History of Present Illness Patient is a 52-year-old male here today at the request of Dr. Mccabe for colonoscopy.?? He is and??established patient here today?? for??follow-up of colonoscopy.?He denies any complaints of constipation, diarrhea,??melena or hematochezia. ??His weight and appetite are stable. ??Denies any pyrosis or dyspepsia.?? Denies dysphagia or globus sensation. ??Denies any abdominal pain.?? States he is feeling well. ?? 07/20/2023 colonoscopy showed a 2 mm??splenic flexure polyp that was a sessile polyp. ?? Denies any first-degree relatives with gastrointestinal cancers, inflammatory bowel disease or celiac??disease. Review of Systems Pertinent positives and negatives are discussed in HPI. Physical Exam Vitals & Measurements T:??35.9?C ??(Temporal Artery)?? HR:??64??(Apical)?? BP:??128/68?? SpO2:??96%?? HT:??185.42??cm?? WT:??98.6??kg?? BMI:??28.68?? General: Well-nourished well-developed??male??in no acute distress. HEENT: Head is normocephalic, trachea midline, and no cervical lymphadenopathy. Wears hearing aids. Respiratory: Respirations are even and unlabored. ??Lungs are clear to auscultation. Cardiovascular: Regular rate and rhythm with S1 and S2. Abdomen: Positive bowel sounds x4 quadrants, no masses, no guarding, no tenderness. ??No hepatosplenomegaly. ??Abdomen is soft. Skin: Warm, dry, and pink. Neurological: Alert and oriented x3, speech is clear and gait is steady. Psychological: Pleasant, calm and cooperative. Assessment/Plan 1.??Sessile serrated polyp of colon??D12.6 Discussed findings of colonoscopy and a??sessile serrated polyp seen.?? We discussed the significance of this being a precancerous polyp. ??We discussed follow-up in 3 years??with a repeat colonoscopy. ??She denies any other concerns today.?? Follow-up as needed. Voice recognition software utilized which may result in minor car whacker error. Problem List/Past Medical History Ongoing Back pain Dyslipidemia RAMPART - Hard of hearing Hypercholesterolemia Lateral epicondylitis of both elbows PTSD - Post-traumatic stress disorder Sessile serrated polyp of colon Subjective tinnitus Historical Colonic polyp Procedure/Surgical History ???Colonoscopy Biopsy (07/20/2023)???Colonoscopy???Meniscal repair Medications atorvastatin 20 mg oral tablet, 20 mg= 1 tab, Oral, Daily Metamucil Titus Burst Smooth Texture 3.4 g/5.8 g oral powder for reconstitution, 5 mL, Oral, TID, PRN scopolamine 1 mg/72 hr transdermal film, extended release, 1 film, Topical, every 72 hr, PRN Allergies Multivitamins??(hives) Lactose statins??(Unknown) Social History Alcohol Never Electronic Cigarette/Vaping Electronic Cigarette Use: Never. Substance Use Never Tobacco Never tobacco user Tobacco Use:. Electronically Signed on 08/15/23 08:29 AM Aislinn Piette, PROFILING MACHINE OPERATOR Electronically Signed on 08/15/23 03:40 PM Aislinn Piette, PROFILING MACHINE OPERATOR Electronically Signed on 08/16/23 07:57 AM Kit Weinstein MD Patient Care team information Care Team Personnel Name: RAJINDER MCCABE Position: No Access Member Role: Primary Care Physician Address: Address: [address] [address] Care Team Related Persons Name: SKYLA SARKAR Address: Home [address] [place] [phone] [facility]
--- OUTSIDE RECORDS SUMMARY | 2024-09-15 21:06 | XMS_ITS | Continuity of Care Document ---
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 Name Role Phone HUMBLEBERT HernándezSkyler Hernández Primary Care Physician Encounter LTTL_OR FIN NBR [id number] Date(s): 07/20/23 - 07/20/[address] [id number] Encounter Diagnosis Encounter for screening colonoscopy(Discharge Diagnosis) - 07/20/23 Discharge Disposition: Home or Self Care Attending Physician: Kit Weinstein MD Admitting Physician: Kit Weinstein MD Referring Physician: Kit Weinstein MD Allergies, Adverse Reactions, Alerts Substance Reaction Severity Status statins Unknown Unknown Active Multivitamins hives Moderate Active Assessment and Plan Future Appointments Functional Status 07/20/23 ADLs Independent Recent Travel History No recent travel 07/13/23 Living Situation Home independently Medications atorvastatin 20 mg oral tablet 20 [...] Effective Dates Status H ealth Status Informant Dyslipidemia Confirmed Active [place] - Hard of hearing Confirmed Active Lateral epicondylitis of both elbows Confirmed Active Procedures Procedure Date Related Diagnosis Body Site Status Colonoscopy Biopsy 1 07/20/23 Comp leted Colonoscopy Completed Meniscal repair Completed 1auto-populated from documented surgical case Vital Signs Most recent to oldest [Reference Range]: 1 2 Temperature Temporal Artery [36-38 Deg C ] 36 Deg C (07/20/23 10:15 AM) 36 Deg C (07/20/23 9:02 AM) Temperature Temporal Artery (DegF) [97.3-100 Deg F] 96.8 Deg F *LOW* (07/20/23 10:15 AM) Heart Rate Monitored [60-100 bpm] 56 bpm *LOW* (07/20/23 10:15 AM) 56 bpm *LOW* (07/20/23 9:02 AM) Respiratory Rate [12-24 br/min] 16 br/mi n (07/20/23 10:15 AM) 16 br/min (07/20/23 9:02 AM) Blood Pressure [90-140/60-90 mmHg] 108/6 6mmHg (07/20/23 10:15 AM) 120/87mmHg (07/20/23 9:02 AM) Mean Arterial Pressure, Cuff [65-140 mmH g] 80 mmHg (07/20/23 10:15 AM) Weight 92.530 kg (07/13/23 10:22 AM) Weight Dosing 92.530 kg (07/13/23 10:22 AM) Height 187.960 cm (07/13/23 10:22 AM) Height/Length Dosing 187.960 cm (07/13/23 10:22 AM) Social History Social History Type Response Tobacco Never tobacco user T obacco Use:. Sex Male Hospital Discharge Instructions Patient Education 07/20/2023 09:24:46 Colonoscopy, Adult, Care After Colonoscopy, Adult, Care After The following information offers guidance on how to care for yourself after your procedure. Your health care provider may also give you more specific instructions. If you have problems or questions, contact your health care provider. What can I expect after the procedure? After the procedure, it is common to have: ??? A small amount of blood in your stool for 24 hours after the procedure. ??? Some gas. ??? Mild cramping or bloating of your abdomen. Follow these instructions at home: Eating and drinking ??? Drink enough fluid to keep your urine pale yellow. ??? Follow instructions from your health care provider about eating or drinking restrictions. ??? Resume your normal diet as told by your health care provider. Avoid heavy or fried foods that are hard to digest. Activity ??? Rest as told by your health care provider. ??? Avoid sitting for a long time without moving. Get up to take short walks every 1???2 hours. This is important to improve blood flow and breathing. Ask for help if you feel weak or unsteady. ??? Return to your normal activities as told by your health care provider. Ask your health care provider what activities are safe for you. Managing cramping and bloating ??? Try walking around when you have cramps or feel bloated. ??? If directed, apply heat to your abdomen as told by your health care provider. Use the heat source that your health care provider recommends, such as a moist heat pack or a heating pad. ??? Place a towel between your skin and the heat source. ??? Leave the heat on for 20???30 minutes. ??? Remove the heat if your skin turns bright red. This is especially important if you are unable to feel pain, heat, or cold. You have a greater risk of getting burned. General instructions ??? If you were given a sedative during the procedure, it can affect you for several hours. Do not drive or operate machinery until your health care provider says that it is safe. ??? For the first 24 hours after the procedure: ??? Do not sign important documents. ??? Do not drink alcohol. ??? Do your regular daily activities at a slower pace than normal. ??? Eat soft foods that are easy to digest. ??? Take kezl-eqr-vnfrltr and prescription medicines only as told by your health care provider. ??? Keep all follow-up visits. This is important. Contact a health care provider if: ??? You have blood in your stool 2???3 days after the procedure. Get help right away if: ??? You have more than a small spotting of blood in your stool. ??? You have large blood clots in your stool. ??? You have swelling of your abdomen. ??? You have nausea or vomiting. ??? You have a fever. ??? You have increasing pain in your abdomen that is not relieved with medicine. These symptoms may be an emergency. Get help right away. Call 911. ??? Do not wait to see if the symptoms will go away. ??? Do not drive yourself to the hospital. Summary ??? After the procedure, it is common to have a small amount of blood in your stool. You may also have mild cramping and bloating of your abdomen. ??? If you were given a sedative during the procedure, it can affect you for several hours. Do not drive or operate machinery until your health care provider says that it is safe. ??? Get help right away if you have a lot of blood in your stool, nausea or vomiting, a fever, or increased pain in your abdomen. This information is not intended to replace advice given to you by your health care provider. Make sure you discuss any questions you have with your health care provider. Document Revised: 05/12/2022 Document Reviewed: 05/12/2022 [employer] Patient Education ?? 2022 [employer]. 07/20/2023 09:24:45 Colon Polyps Colon Polyps Colon polyps are tissue growths inside the colon, which is part of the large intestine. They are one of the types of polyps that can grow in the body. A polyp may be a round bump or a mushroom-shapedgrowth. You could have one polyp or more than one. Most colon polyps are noncancerous (benign). However, some colon polyps can become cancerous over time. Finding and removing the polyps early can help prevent this. What are the causes? The exact cause of colon polyps is not known. What increases the risk? The following factors may make you more likely to develop this condition: ??? Having a family history of colorectal cancer or colon polyps. ??? Being older than 45 years of age. ??? Being younger than 45 years of age and having a significant family history of colorectal canceror colon polyps or a genetic condition that puts you at higher risk of getting colon polyps. ??? Having inflammatory bowel disease, such as ulcerative colitis or Crohn's disease. ??? Having certain conditions passed from parent to child (hereditary conditions), such as: ??? Familial adenomatous polyposis (FAP). ??? Bass syndrome. ??? Turcot syndrome. ??? Peutz???Jeghers syndrome. ??? MUTYH-associated polyposis (MAP). ??? Being overweight. ??? Certain lifestyle factors. These include smoking cigarettes, drinking too much alcohol, not getting enough exercise, and eating a diet that is high in fat and red meat and low in fiber. ??? Having had childhood cancer that was treated with radiation of the abdomen. What are the signs or symptoms? Many times, there are no symptoms. If you have symptoms, they may include: ??? Blood coming from the rectum during a bowel movement. ??? Blood in the stool (feces). The blood may be bright red or very dark in color. ??? Pain in the abdomen. ??? A change in bowel habits, such as constipation or diarrhea. How is this diagnosed? This condition is diagnosed with a colonoscopy. This is a procedure in which a lighted, flexible scope is inserted into the opening between the buttocks (anus) and then passed into the colon to examine the area. Polyps are sometimes found when a colonoscopy is done as part of routine cancer screening tests. How is this treated? This condition is treated by removing any polyps that are found. Most polyps can be removed during a colonoscopy. Those polyps will then be tested for cancer. Additional treatment may be needed depending on the results of testing. Follow these instructions at home: Eating and drinking ??? Eat foods that are high in fiber, such as fruits, vegetables, and whole grains. ??? Eat foods that are high in calcium and vitamin D, such as milk, cheese, yogurt, eggs, liver, fish, and broccoli. ??? Limit foods that are high in fat, such as fried foods and desserts. ??? Limit the amount of red meat, precooked or cured meat, or other processed meat that you eat, such as hot dogs, sausages, morton, or meat loaves. ??? Limit sugary drinks. Lifestyle ??? Maintain a healthy weight, or lose weight if recommended by your health care provider. ??? Exercise every day or as told by your health care provider. ??? Do not use any products that contain nicotine or tobacco, such as cigarettes, e-cigarettes, andchewing tobacco. If you need help quitting, ask your health care provider. ??? Do not drink alcohol if: ??? Your health care provider tells you not to drink. ??? You are , may be , or are planning to become . ??? If you drink alcohol: ??? Limit how much you use to: ??? 0???1 drink a day for women. ??? 0???2 drinks a day for men. ??? Know how much alcohol is in your drink. In the [place] one drink equals one 12 oz bottle of beer (355 mL), one 5 oz glass of wine (148 mL), or one 1?? oz glass of hard liquor (44 mL). General instructions ??? Take xcvd-rgj-xxlgjzd and prescription medicines only as told by your health care provider. ??? Keep all follow-up visits. This is important. This includes having regularly scheduled colonoscopies. Talk to your health care provider about when you need a colonoscopy. Contact a health care provider if: ??? You have new or worsening bleeding during a bowel movement. ??? You have new or increased blood in your stool. ??? You have a change in bowel habits. ??? You lose weight for no known reason. Summary ??? Colon polyps are tissue growths inside the colon, which is part of the large intestine. They are one type of polyp that can grow in the body. ??? Most colon polyps are noncancerous (benign), but some can become cancerous over time. ??? This condition is diagnosed with a colonoscopy. ??? This condition is treated by removing any polyps that are found. Most polyps can be removed during a colonoscopy. This information is not intended to replace advice given to you by your health care provider. Make sure you discuss any questions you have with your health care provider. Document Revised: 01/07/2021 Document Reviewed: 01/07/2021 [employer] Patient Education ?? 2022 [employer] Discharge instructions * Tabby Meyer: PERFORM Event Display: Discharge Instructions Authored Date: [id number] PITER SARKAR :1970 Age:52 years Sex:Male Visit Date:07/20/2023 Primary Care Physician: RAJINDER MCCABE Hospital Discharge Instructions We would like to thank you for allowing us to assist you with your healthcare needs. The following includes patient education materials and information regarding your injury/illness. Your Next Steps Discharge Orders Discharge Patient Instructions, You may experience some gas cramps and abdominal bloating Discharge Patient Instructions, Cramping and abdominal bloating should subside in 1 hour or so Discharge Patient Instructions, Passing gas rectally and belching is normal Discharge Patient Instructions, A light first meal may feel better in your stomach Discharge Patient Instructions, You may resume your normal activity in 24 hours Discharge Patient Instructions, It is important that a responsible adult drive you home today Discharge Patient Instructions, Do not sign any contracts, make any major decisions, or drive or operate machinery for 24 hours Discharge Patient Instructions, You should not be responsible for the care of others Discharge Patient Instructions, Avoid alcohol, tranquilizers, sleeping pills, or cold medicines for24 hours Discharge Patient Instructions, Call or come to emergency department if having unusual pain or severe abdominal pain Discharge Patient Instructions, Call or come to emergency department if vomiting blood or having black bowel movements, rectal bleeding or passing blood clots Discharge Patient Instructions, Call or come to emergency department for dizziness Discharge Patient Instructions, Call or come to emergency department chest pain, or shortness of breath Discharge Patient Instructions, Call or come to emergency department for fever greater than 100 ??F Discharge Patient Instructions, Call with any additional questions or concerns Scheduled Future Appointments Tuesday 8:30 AM EST ?? Medications What How Much When Instructions Next Dose Unchanged atorvastatin (atorvastatin 20 mg oral tablet) 1 tab Oral (given by mouth) Every day Unchanged psyllium (Metamucil Titus Burst Smooth Texture 3.4 g/ 5.8 g oral powder for reconstitution) 5 Milliliters Oral (given by mouth) 3 times a day as needed for as needed for constipation Unchanged scopolamine (scopolamine 1 mg/ 72 hr transdermal film, extended release) 1 Film Topical (on the skin) Every 72 hours as needed for nausea/vomiting Your Summary Your Care Team Admitting Physician - Kit Weinstein MD Attending Physician - Kit Weinstein MD Primary Care Physician - RAJINDER MCCABE Referring Physician - Kit Weinstein MD Your Diagnosis Encounter for screening colonoscopy Dyslipidemia (high LDL; low HDL) [place] (hard of hearing) Problems Ongoing - Any problem that you are currently receiving treatment for. Dyslipidemia [place] - Hard of hearing Lateral epicondylitis of both elbows Procedures Performed ???Colonoscopy Biopsy (07/20/2023)???Colonoscopy???Meniscal repair Discharge Vitals Temperature??(Temporal Artery) 96.8 ??F (36 ??C) Heart Rate??(Monitored) 56 Respiratory Rate?? 16 Blood Pressure?? 108/66?? Allergies Multivitamins??(hives) statins??(Unknown) Education Materials Colonoscopy, Adult, Care After The following information offers guidance on how to care for yourself after your procedure. Your health care provider may also give you more specific instructions. If you have problems or questions, contact your health care provider. What can I expect after the procedure? After the procedure, it is common to have: ? A small amount of blood in your stool for 24 hours after the procedure. ? Some gas. ? Mild cramping or bloating of your abdomen. Follow these instructions at home: Eating and drinking ? Drink enough fluid to keep your urine pale yellow. ? Follow instructions from your health care provider about eating or drinking restrictions. ? Resume your normal diet as told by your health care provider. Avoid heavy or fried foods that are hard to digest. Activity ? Rest as told by your health care provider. ? Avoid sitting for a long time without moving. Get up to take short walks every 1???2 hours. This isimportant to improve blood flow and breathing. Ask for help if you feel weak or unsteady. ? Return to your normal activities as told by your health care provider. Ask your health care provider what activities are safe for you. Managing cramping and bloating ? Try walking around when you have cramps or feel bloated. ? If directed, apply heat to your abdomen as told by your health care provider. Use the heat source that your health care provider recommends, such as a moist heat pack or a heating pad. ? Place a towel between your skin and the heat source. ? Leave the heat on for 20???30 minutes. ? Remove the heat if your skin turns bright red. This is especially important if you are unable to feel pain, heat, or cold. You have a greater risk of getting burned. General instructions ? If you were given a sedative during the procedure, it can affect you for several hours. Do not drive or operate machinery until your health care provider says that it is safe. ? For the first 24 hours after the procedure: ? Do not sign important documents. ? Do not drink alcohol. ? Do your regular daily activities at a slower pace than normal. ? Eat soft foods that are easy to digest. ? Take yimk-vle-jdvwtgi and prescription medicines only as told by your health care provider. ? Keep all follow-up visits. This is important. Contact a health care provider if: ? You have blood in your stool 2???3 days after the procedure. Get help right away if: ? You have more than a small spotting of blood in your stool. ? You have large blood clots in your stool. ? You have swelling of your abdomen. ? You have nausea or vomiting. ? You have a fever. ? You have increasing pain in your abdomen that is not relieved with medicine. These symptoms may be an emergency. Get help right away. Call 911. ? Do not wait to see if the symptoms will go away. ? Do not drive yourself to the hospital. Summary ? After the procedure, it is common to have a small amount of blood in your stool. You may also have mild cramping and bloating of your abdomen. ? If you were given a sedative during the procedure, it can affect you for several hours. Do not drive or operate machinery until your health care provider says that it is safe. ? Get help right away if you have a lot of blood in your stool, nausea or vomiting, a fever, or increased pain in your abdomen. This information is not intended to replace advice given to you by your health care provider. Make sure you discuss any questions you have with your health care provider. Document Revised: 05/12/2022 Document Reviewed: 05/12/2022 [employer] Patient Education ?? 2022 [employer] Colon Polyps Colon polyps are tissue growths inside the colon, which is part of the large intestine. They are one of the types of polyps that can grow in the body. A polyp may be a round bump or a mushroom-shapedgrowth. You could have one polyp or more than one. Most colon polyps are noncancerous (benign). However, some colon polyps can become cancerous over time. Finding and removing the polyps early can help prevent this. What are the causes? The exact cause of colon polyps is not known. What increases the risk? The following factors may make you more likely to develop this condition: ? Having a family history of colorectal cancer or colon polyps. ? Being older than 45 years of age. ? Being younger than 45 years of age and having a significant family history of colorectal cancer or colon polyps or a genetic condition that puts you at higher risk of getting colon polyps. ? Having inflammatory bowel disease, such as ulcerative colitis or Crohn's disease. ? Having certain conditions passed from parent to child (hereditary conditions), such as: ? Familial adenomatous polyposis (FAP). ? Bass syndrome. ? Turcot syndrome. ? Peutz???Jeghers syndrome. ? MUTYH-associated polyposis (MAP). ? Being overweight. ? Certain lifestyle factors. These include smoking cigarettes, drinking too much alcohol, not gettingenough exercise, and eating a diet that is high in fat and red meat and low in fiber. ? Having had childhood cancer that was treated with radiation of the abdomen. What are the signs or symptoms? Many times, there are no symptoms. If you have symptoms, they may include: ? Blood coming from the rectum during a bowel movement. ? Blood in the stool (feces). The blood may be bright red or very dark in color. ? Pain in the abdomen. ? A change in bowel habits, such as constipation or diarrhea. How is this diagnosed? This condition is diagnosed with a colonoscopy. This is a procedure in which a lighted, flexible scope is inserted into the opening between the buttocks (anus) and then passed into the colon to examine the area. Polyps are sometimes found when a colonoscopy is done as part of routine cancer screening tests. How is this treated? This condition is treated by removing any polyps that are found. Most polyps can be removed during a colonoscopy. Those polyps will then be tested for cancer. Additional treatment may be needed depending on the results of testing. Follow these instructions at home: Eating and drinking ? Eat foods that are high in fiber, such as fruits, vegetables, and whole grains. ? Eat foods that are high in calcium and vitamin D, such as milk, cheese, yogurt, eggs, liver, fish, and broccoli. ? Limit foods that are high in fat, such as fried foods and desserts. ? Limit the amount of red meat, precooked or cured meat, or other processed meat that you eat, such as hot dogs, sausages, morton, or meat loaves. ? Limit sugary drinks. Lifestyle ? Maintain a healthy weight, or lose weight if recommended by your health care provider. ? Exercise every day or as told by your health care provider. ? Do not use any products that contain nicotine or tobacco, such as cigarettes, e- cigarettes, and chewing tobacco. If you need help quitting, ask your health care provider. ? Do not drink alcohol if: ? Your health care provider tells you not to drink. ? You are , may be , or are planning to become . ? If you drink alcohol: ? Limit how much you use to: ? 0???1 drink a day for women. ? 0???2 drinks a day for men. ? Know how much alcohol is in your drink. In the [place] one drink equals one 12 oz bottle of beer (355mL), one 5 oz glass of wine (148 mL), or one 1?? oz glass of hard liquor (44 mL). General instructions ? Take sgep-wha-vrxzrix and prescription medicines only as told by your health care provider. ? Keep all follow-up visits. This is important. This includes having regularly scheduled colonoscopies. Talk to your health care provider about when you need a colonoscopy. Contact a health care provider if: ? You have new or worsening bleeding during a bowel movement. ? You have new or increased blood in your stool. ? You have a change in bowel habits. ? You lose weight for no known reason. Summary ? Colon polyps are tissue growths inside the colon, which is part of the large intestine. They are one type of polyp that can grow in the body. ? Most colon polyps are noncancerous (benign), but some can become cancerous over time. ? This condition is diagnosed with a colonoscopy. ? This condition is treated by removing any polyps that are found. Most polyps can be removed during a colonoscopy. This information is not intended to replace advice given to you by your health care provider. Make sure you discuss any questions you have with your health care provider. Document Revised: 01/07/2021 Document Reviewed: 01/07/2021 [employer] Patient Education ?? 2022 [employer] Patient/Developmental Services Worker Signature Patient Name:PITER SARKAR I have received this information and my questions have been answered. Patient/Developmental Services Worker Name: Patient/Developmental Services Worker Signature: Relationship to Patient: Witness Name/Signature: Date: Electronically Signed on: 07/20/2023 10:27 EDTSigned by:GAG History and physical note * Kit Weinstein MD: PERFORM Event Display: History and Physical Authored Date: [id number] PITER SARKAR :1970 Age:52 years Sex:Male Visit Date:07/20/2023 Primary Care Physician: RAJINDER MCCABE Chief Complaint Colonoscopy History of Present Illness 52-year-old male at average risk for colorectal cancer. Physical Exam Vitals & Measurements T:??36?C ??(Temporal Artery)?? HR:??56??(Monitored)?? RR:??16?? BP:??120/87?? SpO2:??100%?? O2 Therapy:??Room air?? Well-developed well-nourished white male no acute distress Lungs: Clear to auscultation bilaterally Heart: Regular rhythm S1-S2 Abdomen soft nontender Assessment/Plan 1.??Encounter for screening colonoscopy??Z12.11 Colonoscopy today. Orders: Normal Saline Flush, 10 mL, IV Flush, Injection, As Directed, PRN liner replacer, First Dose: 07/20/23 8:49:00 EDT, Routine Sodium Chloride 0.9% 1,000 mL, Total Volume (mL): 1,000, 1,000 mL, Soln-IV, IV, 50 mL/hr, Start Date: 07/20/23 8:49:00 EDT, 92.53 kg, Populate Charting Weight From Order, 2.2, m2 Blood Glucose Monitoring POC RE, 07/20/23 8:49:00 EDT, Stop date 07/20/23 8:49:00 EDT Diet Order, 07/20/23 7:10:00 EDT, Regular Discharge Patient, 07/20/23 7:10:00 EDT, Discharge when stable per SDS criteria Discharge Patient, 07/20/23 7:10:00 EDT, Discharge when stable per anesthesia criteria Discharge Patient Instructions, Call or come to emergency department for dizziness Discharge Patient Instructions, A light first meal may feel better in your stomach Discharge Patient Instructions, Call with any additional questions or concerns Discharge Patient Instructions, You may resume your normal activity in 24 hours Discharge Patient Instructions, Cramping and abdominal bloating should subside in 1 hour or so Discharge Patient Instructions, Call or come to emergency department chest pain, or shortness of breath Discharge Patient Instructions, Passing gas rectally and belching is normal Discharge Patient Instructions, Call or come to emergency department for fever greater than 100 ??F Discharge Patient Instructions, It is important that a responsible adult drive you home today Discharge Patient Instructions, Do not sign any contracts, make any major decisions, or drive or operate machinery for 24 hours Discharge Patient Instructions, Call or come to emergency department if having unusual pain or severe abdominal pain Discharge Patient Instructions, Call or come to emergency department if vomiting blood or having black bowel movements, rectal bleeding or passing blood clots Discharge Patient Instructions, You should not be responsible for the care of others Discharge Patient Instructions, Avoid alcohol, tranquilizers, sleeping pills, or cold medicines for24 hours Discharge Patient Instructions, You may experience some gas cramps and abdominal bloating Obtain consent, 07/20/23 8:49:00 EDT, Constant Order, 07/20/23 8:49:00 EDT Peripheral IV Insertion, 07/20/23 8:49:00 EDT Saline Lock Convert From IV, 07/20/23 8:49:00 EDT, Stop date 07/20/23 8:49:00 EDT Vital Signs, 07/20/23 7:10:00 EDT, Once, Stop date 07/20/23 7:10:00 EDT Vital Signs, 07/20/23 8:49:00 EDT, Stop date 07/20/23 8:49:00 EDT, Routine Vital Signs, 07/20/23 7:10:00 EDT, Stop date 07/20/23 7:10:00 EDT, As needed Problem List/Past Medical History Ongoing Dyslipidemia [place] - Hard of hearing Lateral epicondylitis of both elbows Historical No qualifying data Procedure/Surgical History ???Colonoscopy???Meniscal repair Medications Inpatient Normal Saline Flush, 10 mL, IV Flush, As Directed, PRN Sodium Chloride 0.9% 1,000 mL, 1000 mL, IV Home atorvastatin 20 mg oral tablet, 20 mg= 1 tab, Oral, Daily Metamucil Titus Burst Smooth Texture 3.4 g/5.8 g oral powder for reconstitution, 5 mL, Oral, TID, PRN scopolamine 1 mg/72 hr transdermal film, extended release, 1 film, Topical, every 72 hr, PRN Allergies Multivitamins??(hives) statins??(Unknown) Social History Alcohol Never Electronic Cigarette/Vaping Electronic Cigarette Use: Never. Substance Use Never Tobacco Never tobacco user Tobacco Use:. Electronically Signed on 07/20/23 09:42 AM Kit Weinstein MD Patient Care team information Care Team Personnel Name: RAJINDER MCCABE Position: No Access Member Role: Primary Care Physician Address: Address: [address] [address]- Care Team Related Persons Name: SKYLA SARKAR Address: Home [address] [place] [phone] [facility]
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
--- OUTSIDE RECORDS SUMMARY | 2024-09-15 21:07 | XMS_ITS | Encounter Summary ---
Author Organization [facility] Address [address] [place] [address] Care Team Providers Care Classroom Assistant Name Role Phone Unknown, Provider Primary Care Provider Magalys ilcorey Encounter Details Date Type Department Care Team (Late st Contact Info) Description 07/21/2023 Lab Requisition [facility] - [facility] [place] [address] [place], [place] [id number] Kit Weinstein MD [address] [place] [phone] Encounter for screening for malignant neoplasm of colon Social History Tobacco Use Types Packs/Day Years Used Date Smoking Tobacco: Never Assessed Sex and Gender Information Value Date Recorded Sex Assigned at Not on file Legal Sex Male 18:45 EST Gender Identity Not on file Sexual Orientation Not on file documented as of this encounter Plan of Treatment Not on file documented as of this encounter Procedures Procedure Name Priority Date/Time Associated Diagnosis Comments SURGICAL PATHOLOGY Today 07/20/2023 10 :05 EDT Encounter for screening for malignant neoplasm of colon documented in this encounter Results * SURGICAL PATHOLOGY (07/20/2023 10:05 EDT) Note to Patient The following pathology results have been interpreted by your pathologist and may be available to you before your health provider has had the opportunity to review them. Please allow time for your provider to receive these results and explore management options, if applicable. 07/22/2023 14:06 [facility] Final Diagnosis A. COLON, SPLENIC FLEXURE, POLYP, BIOPSY: - Superficial mucosal fragment consistent with sessile serrated polyp. - Negative for dysplasia. 07/22/2023 14:06 [facility] Attestation By the signature below, the attending physician certifies that they have 1) personally conducted a gross and/or microscopic examination of the described specimen(s), and/or personally interpreted the results of laboratory testing of the described specimen(s), and 2) personally rendered or confirmed the above diagnosis. 07/22/2023 14:06 [facility] at 1406 Clinical History screening 07/22/2023 14:06 [facility] Gross Description A. The specimen is received in formalin labeled with ? Hayden Vo? and ? A? and ? polyp splenic flexure? is a mucosal fragment that measures up to 0.2 x 0.2 x 0.6 cm. The specimen is entirely submitted in 1 cassette. ELIAZAR BROWN 07/21/2023 12:16 07/22/2023 14:06 [facility] Performing Lab [facility] 07/22/2023 14:06 [facility] Scanned Images 07/22/2023 14:06 [facility] Tissue POLYP OF COLON / Unknown 07/20/2023 10:05 EDT 07/21/2023 8:07 EDT us Kit Weinstein MD PATHOLOGY ORDERABLES Final Result [facility] [address] [place] [address] documented in this encounter Visit Diagnoses Diagnosis Encounter for screening for malignant neoplasm of colon Special screening for malignant neoplasms, colon documented in this encounter Care Teams Classroom Assistant Relationship Specialty Start Date End Date Unknown, Provider, PCP - General 03/24/09 documented as of this encounter
--- OUTSIDE RECORDS SUMMARY | 2024-09-15 21:07 | XMS_ITS | Encounter Summary ---
Author Organization [facility] Address [address] [place] [address] Care Team Providers Care Franchise Consultant Name Role Phone Unknown, Provider Primary Care Provider Magalys ilcorey Encounter Details Date Type Department Care Team (Late st Contact Info) Description 12/05/2011 Results Only [facility] Laboratory Services - [facility] [place] [address] [place] [address] Aidan Mack MD [address] [facility] [address] [place] [address] Social History Tobacco Use Types Packs/Day Years [...] Procedure Name Priority Date/Time Associated Diagnosis Comments GLUCOSE 6-PHOSPHATE DEHYDROGENASE ENZYME ACTIVITY, BLD Routine 12/05/2011 18:46 EST VARICELLA IGG ANTIBODY Routine 2 18:46 EST documented in this encounter Results * VARICELLA IGG ANTIBODY (12/05/2011 18:46 EST) Varicella IgG Ab Positive [facility] 12/05/2011 18:4 6 EST 12/05/2011 18:46 EST us Aidan Mack MD IMMUNOLOGY AND SEROLOGY IVY FUCHS Final Result [facility] [address] [place] [address] * UZDHZWV-3-OSYRPRZIJ DEHYDROGENASE, QUANTITATIVE (12/05/2011 18:46 EST) Pngdehl-8-Cuofqasz e Dehydrogenase Quant 10.2 8.8 - 13.4 U/g Hb [facility] Comment: Performed or Referred by: [facility] Dpt of Lab Med and Path, [address] [place] [address], Lab Dir: Murali Foster III, MD 12/05/2011 18:4 6 EST 12/05/2011 18:46 EST us Aidan Mack MD CHEMISTRY & BLOOD GAS ORDERA BLES Final Result [facility] [address] [place] [address] documented in this encounter Visit Diagnoses Not on filedocumented in this encounter Care Teams Franchise Consultant Relationship Specialty Start Date End Date Unknown, Provider, PCP - General 03/24/09 documented as of this encounter
--- OUTSIDE RECORDS SUMMARY | 2024-09-15 21:07 | XMS_ITS | Referral Summary ---
Author Organization [facility] Address [address] [place] [address] Care Team Providers Care Motorized Squad Commanding Officer Name Role Phone Unknown, Provider Primary Care Provider Unava ilable Social History Tobacco Use Types Packs/Day Years Used Date Smoking Tobacco: Never Assessed Sex and Gender Information Value Date Recorded Sex Assigned at Not on file Legal Sex Male 18:45 EST Gender Identity Not on file Sexual Orientation Not on file Plan of Treatment Not on file Procedures Procedure Name Priority Date/Time Associated Diagnosis Comments HEPATITIS C AB W REFLEX TO HCV RNA BY PCR Routine 07/11/2020 16:08 EDT from Last 3 Months or Most Recently Relevant to Health Maintenance Results * HEPATITIS C AB W REFLEX TO HCV RNA BY PCR (07/11/2020 16:08 EDT) Hep C Antibody Negative Negative 07/14/2020 11:24 EDT [facility] Blood VENOUS BLOOD / Unknown 07/11/2020 16:08 EDT 07/11/2020 22:15 EDT us Provider Outr Resulting Lab CHEMISTRY & BLOOD GA S ORDERABLES Final Result [facility] [address] [place] [address] from Last 3 Months or Most Recently Relevant to Health Maintenance Insurance [facility] Care Teams Motorized Squad Commanding Officer Relationship Specialty Start Date End Date Unknown, Provider, PCP - General 03/24/09
--- OUTSIDE RECORDS SUMMARY | 2024-09-15 21:07 | XMS_ITS | Patient Health Record ---
Author Organization [facility] Address [address] [place] [address] Care Team Providers Care Early Childhood Services Coordinator Name Role Phone FLAKO BORREGO Primary Care Provider Gini Shaw [phone] ALLERGIES Allergen (clinical drug ingredient) Drug/Non Drug Allergy documented on EMR Reaction Allergy Type Onset Date Status rosuvastatin Crestor headaches Drug Allergy Acti ve Multivitamin hives Drug Allergy Acti ve REASON FOR REFERRAL No Information MEDICATIONS Medication SIG (Take, Route, Frequency, Duration) Notes Start Date End Date Status Atorvastatin Calcium 20 MG 1 tablet Once a day Active Omeprazole 20 MG 1 capsule Once a day Active SOCIAL HISTORY Tobacco Use: Social History Observation Description Date Details (start date - stop date) Never Smoker NA - NA Sex Assigned At : Social History Observation Description Sex Assigned At Unknown SMOKING Question Answer Notes Are you a: nonsmoker PLAN OF TREATMENT Future Test Test Name Order Date MR Lower Ext R w/o ([id number]) 07/18/2020 Insurance Providers Payer Name Payer Address Payer Phone Subscriber Number Group Number Insured Name Patient Relationship to Insured Coverage Start Date Coverage End Date [place] [employer] [address] [place] [address] [id number] PITER SARKAR Self - patient is the insured SELF [place]Y [place] [address] [place] [address] PITER ASRKAR Self - patient is the insured MEDICAL (GENERAL) HISTORY Medical History History ICD Code CERVICALGIA Hyperlipidemia, unspecified JOINT PAIN-ANKLE Pain in right shoulder SENSONRL HEAR LOSS, BILAT TINNITUS NOS Surgical History Surgery Date(Month/Year) left knee surgery colonoscopy endoscopy vasectomy Hospitalization History Reason Date(Month/Year) see above
--- OUTSIDE RECORDS SUMMARY | 2024-09-15 21:07 | XMS_ITS | Clinical Summary ---
Author Organization [facility] Address [address] [place] [address] Care Team Providers Care Power Engineer Name Role Phone Unknown, Provider Primary Care Provider Unava ilable Social History Tobacco Use Types Packs/Day Years Used Date Smoking Tobacco: Never Assessed Sex and Gender Information Value Date Recorded Sex Assigned at Not on file Legal Sex Male 18:45 EST Gender Identity Not on file Sexual Orientation Not on file Plan of Treatment Health Maintenance Due Date Last Done Comments Hepatitis B Vaccine (1 of 3 - 19+ 3-dose series) 10/28 COVID-19 Vaccine ( season) 2024 Hepatitis C Screen Completed 07/11/2020 Procedures Procedure Name Priority Date/Time Associated Diagnosis Comments HEPATITIS C AB W REFLEX TO HCV RNA BY PCR Routine 07/11/2020 16:08 EDT from Last 3 Months or Most Recently Relevant to Health Maintenance Results * HEPATITIS C AB W REFLEX TO HCV RNA BY PCR (07/11/2020 16:08 EDT) Hep C Antibody Negative Negative 07/14/2020 11:24 EDT [facility] Blood VENOUS BLOOD / Unknown 07/11/2020 16:08 EDT 07/11/2020 22:15 EDT us Provider Outr Resulting Lab CHEMISTRY & BLOOD GA S ORDERABLES Final Result [facility] [address] [place] [address] from Last 3 Months or Most Recently Relevant to Health Maintenance Insurance [facility] Care Teams Power Engineer Relationship Specialty Start Date End Date Unknown, Provider, PCP - General 03/24/09
--- OUTSIDE RECORDS SUMMARY | 2024-09-15 21:07 | XMS_ITS | Encounter Summary ---
Author Organization [facility] Address [address] [place] [address] Care Team Providers Care Fly Rail Operator Name Role Phone Unknown, Provider Primary Care Provider Magalys ilable Encounter Details Date Type Department Care Team (Late st Contact Info) Description 07/11/2020 Lab Requisition [facility] Pathology & Laboratory Medicine - [facility] [address] [place] [address] Outr Resulting Lab, Provider Social History Tobacco Use Types Packs/Day Years [...] RNA BY PCR Routine 07/11/2020 16:08 EDT HEPATITIS B SURFACE ANTIGEN Routine 07/11/2020 16:08 EDT HIV 1/2 ANTIGEN AND ANTIBODY, 4TH GENERATION Routine 07/11/2020 16:08 EDT documented in this encounter Results * HEPATITIS B SURFACE ANTIGEN (07/11/2020 16:08 EDT) Hep B Surface Ag Negative Negative 07/14/2020 10:20 EDT [facility] Blood VENOUS BLOOD / Unknown 07/11/2020 16:08 EDT 07/11/2020 22:15 EDT us Provider Outr Resulting Lab CHEMISTRY & BLOOD GA S ORDERABLES Final Result [facility] [address] [place] [address] * HEPATITIS C AB W REFLEX TO HCV RNA BY PCR (07/11/2020 16:08 EDT) Hep C Antibody Negative Negative 07/14/2020 11:24 EDT [facility] Blood VENOUS BLOOD / Unknown 07/11/2020 16:08 EDT 07/11/2020 22:15 EDT us Provider Outr Resulting Lab CHEMISTRY & BLOOD GA S ORDERABLES Final Result [facility] [address] [place] [address] * HIV 1/2 ANTIGEN AND ANTIBODY, 4TH GENERATION (07/11/2020 16:08 EDT) HIV 1 and 2 Antibody/p24 Antigen, 4th Generation Negative Negative 07/14/2020 10:55 EDT [facility] Comment: If acute HIV-1 infection is suspected in a high risk ??patient, submit plasma specimen for HIV-1 RNA quantitation test. Fourth Generation assay performed on the Siemens Centaur. Blood VENOUS BLOOD / Unknown 07/11/2020 16:08 EDT 07/11/2020 22:15 EDT us Provider Outr Resulting Lab IMMUNOLOGY AND SEROL OGY ORDERABLES Final Result [facility] [address] [place] [address] documented in this encounter Visit Diagnoses Not on filedocumented in this encounter Care Teams Fly Rail Operator Relationship Specialty Start Date End Date Unknown, Provider, PCP - General 03/24/09 documented as of this encounter
--- OUTSIDE RECORDS SUMMARY | 2024-09-15 21:07 | XMS_ITS | Encounter Summary ---
Author Organization [facility] Address [address] [place] [address] Care Team Providers Care Vp Corporate Development Name Role Phone Unknown, Provider Primary Care Provider Unajama ilable Encounter Details Date Type Department Care Team (Late st Contact Info) Description 03/24/2009 Orders Only [facility] Laboratory Services - [facility] ([facility] [address] [place] [address] Aidan Mack MD [address] [place] [address] Social History Tobacco Use Types [...] Procedure Name Priority Date/Time Associated Diagnosis Comments ABO/RH Routine 03/24/2009 18:37 EDT documented in this encounter Results * ABO/RH (03/24/2009 18:37 EDT) ABO A [facility] Rh Factor Positive [facility] 03/24/2009 18:3 7 EDT 03/24/2009 18:37 EDT us Aidan Mack MD BLOOD BANK TESTS Final Resul t [facility] [address] [place] [address] documented in this encounter Visit Diagnoses Not on filedocumented in this encounter Care Teams Vp Corporate Development Relationship Specialty Start Date End Date Unknown, Provider, PCP - General 03/24/09 documented as of this encounter
== END 2024-09-15 20:54 | disposition home or self-care (01) ==
LOC: ER 21:01
PROVIDERS: Emergency Provider Physician Assistant; PCP Nurse Practitioner Family
DX: S51.832A Puncture wound without foreign body of left forearm, initial encounter (principal); S51.831A Puncture wound without foreign body of right forearm, initial encounter; E78.5 Hyperlipidemia, unspecified; W54.0XXA Bitten by dog, initial encounter; Y93.89 Activity, other specified; Y92.018 Other place in single-family (private) house as the place of occurrence of the external cause
CPT/HCPCS: 96365; 99284; J0295